=== PATIENT | female | born 1960 | race Caucasian/White ===

== ENCOUNTER → 2016-11-12 | Outpatient (CLI) | payer MEDICARE, MEDICAID ==
[~2016-11-12] MED LIST: ACET50TA PO; ACET65TA OR; AMMO12CR4 EX; ATOR1TAB18 PO; BACL-67 PO; DOXYCYCLINE PO; INVO100T PO; LEVO88TA3 PO; METF1000 PO; NIFE30TA66 PO; NORT25CA2 PO; NYAM10003 EX; OMEG100011 PO; OMEGA 3 PO; ROPI1TAB PO; SIMV20TA2 PO; SIMV40TA2 OR; TIZA4CAP3 PO; VITA1CAP7 PO; VITA50003 PO; ZONI25CA2 PO; ZONI50CA3 PO; norco PO
[2016-11-12 09:57] LABS: MEAN CORPUSCULAR HEMOGLOBIN 33.3 pg (27.0-33.0); MEAN CORPUSCULAR HGB CONC 34.9 g/dl (32.0-36.5); MEAN CORPUSCULAR VOLUME 95.4 fl (80.0-96.0); RED CELL DISTRIBUTION WIDTH 12.8 % (11.5-14.5); WHITE BLOOD COUNT 9.7 K/mm3 (4.0-10.0)
[2016-11-12 10:28] LABS: ANION GAP 6 MEQ/L (8-16); BLOOD UREA NITROGEN 14 MG/DL (7-18); CALCIUM LEVEL 9.7 MG/DL (8.5-10.1); CARBON DIOXIDE LEVEL 29 MEQ/L (21-32); CHLORIDE LEVEL 106 MEQ/L (98-107); GLOMERULAR FILTRATION RATE > 60.0 (>51); GLUCOSE, FASTING 194 MG/DL (70-105); POTASSIUM SERUM 4.4 MEQ/L (3.5-5.1); SODIUM LEVEL 141 MEQ/L (136-145)
== END ==
LOC: M LAB 09:14
PROVIDERS: ATTEND Nurse Practitioner Family
DX: E11.9 Type 2 diabetes mellitus without complications (principal); D72.829 Elevated white blood cell count, unspecified

== ENCOUNTER → 2016-11-16 | Outpatient (CLI) | payer MEDICARE, MEDICAID ==
--- NOTE | 2016-11-21 23:54 | ECWPNPC ---
PATIENT NAME: ARABELLA ROSS : 1960 GENDER: FEMALE VISIT DATE: 11/16/2016 DISCHARGE DATE: 11/16/16 1004 VISIT LOCKED DATE TIME: PHYSICIAN: FLORESITA BROWN RESOURCE: FLORESITA BROWN REASON FOR APPOINTMENT 1. POST TPI HISTORY OF PRESENT ILLNESS HISTORY OF PRESENT ILLNESS: PAIN THE PATIENT DESCRIBES THE PAIN... 56 YEAR OLD FEMALE PATIENT WITH HISTORY OF CHRONIC BACK AND ABDOMINAL PAIN. PATIENT DESCRIBES THE PAIN ACHING, SHARP, STABBING, TENDER, SORE, AND HAVING IT ALL THE TIME WITH A PAIN SCORE OF 0/10. PATIENT RECEIVED A TPI ON 10-19-2016 AND REPORTS OF DOING WELL FROM THE INJECTION AND THAT IT REALLY HELPED WITH HER BACK PAIN GREATLY. PATIENT DOES INDICATE THAT SHE STILL DOES HAVE ABDOMINAL PAIN. PATIENT DENIES UNEXPLAINABLE WEIGHT LOSS, FEVER, CHILLS, NEW CHANGES ON HER URINARY OR BOWEL CONTROL. FALL RISK SCREENING: SCREENING :NO FALLS IN THE PAST YEAR CURRENT MEDICATIONS TAKING TIZANIDINE HCL 4 MG TABLET 1 TABLET NEEDED ORALLY 3 X A DAY, NOTES: 10/18/162029 TAKING FISH OIL 1000 MG CAPSULE 1 ORALLY 4 X A DAY, NOTES: 10/18/162029 TAKING TYLENOL EXTRA STRENGTH 500 MG TABLET 2 TABLET NEEDED ORALLY EVERY 8 HRS NEEDED FOR H/A, NOTES: 10/14/16 TAKING LEVOTHROID 88 MCG TABLET 1 TABLET ON AN EMPTY STOMACH IN THE MORNING ORALLY ONCE A DAY, NOTES: 10/19/16 0630 TAKING METFORMIN HCL 1000 MG TABLET 1 TABLET WITH MEALS ORALLY TWICE A DAY, NOTES: 10/18/162029 TAKING NORTRIPTYLINE HCL 25 MG CAPSULE 1 CAPSULE ORALLY TWICE DAILY, NOTES: 10/18/162029 TAKING BACLOFEN 20 MG TABLET 1 TABLET WITH FOOD OR MILK ORALLY THREE TIMES A DAY, NOTES: 10/18/162029 TAKING ROPINIROLE HCL 1 MG TABLET 1 TABLET ORALLY THREE X DAILY, NOTES: 10/18/162029 TAKING ZONISAMIDE 50 MG CAPSULE 1 CAP ORALLY 1 AM / 2 HS, NOTES: 10/18/162029 TAKING VITAMIN D 5000 TABLET ORALLY ONCE DAILY, NOTES: 10/18/162029 TAKING VITAMIN D (ERGOCALCIFEROL) 86432 UNIT CAPSULE 1 CAPSULE ORALLY WEEKLY NOT-TAKING INVOKANA 100 MG TABLET 1 TABLET ORALLY ONCE A DAY NOT-TAKING ATORVASTATIN CALCIUM 80 MG TABLET 1 TABLET ORALLY ONCE A DAY, NOTES: 2 MONTHS AGO MEDICATION LIST REVIEWED AND RECONCILED WITH THE PATIENT PAST MEDICAL HISTORY 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 HYPERLIPIDEMIA ARTHRITIS DDD/DD FRACTURE-LEFT ANKLE X 2 GRAVES DISEASE-2011 RIGHT HIP BURSITIS MRSA LEFT GROIN 2012, I AND D TYPE II DIABETES DYSTONIA RIGHT FOOT VERTIGO FIBROMYALGIA WITH LOW BACK AND NECK PAIN MUSCLE SPASMS SEES 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 SPINAL STENOSIS UPPER ABDOMINAL PAIN ALLERGIES CRESTOR: RED BLOTCHES AFTER TAKING 1 SURGICAL HISTORY D&C 1987 LEFT GROIN ABCESS WITH CELLULITIS -I AND D/ WAS MERSA 05/24/11 RADIO-ACTIVE IODINE FOR THYROID 06/06/12 EGD- DUE TO STOMACH PAIN CT SCAN APRIL 2016 COLONOSCOPY WITH POLYPS ,REPEAT 2018 10/06/2015 FAMILY HISTORY NO FAMILY HISTORY DOCUMENTED. SOCIAL HISTORY GENERAL: TOBACCO USE ARE YOU A:NONSMOKER LEARNING BARRIERS / SPECIAL NEEDS ORIENTED TO PLAN OF CARE: PATIENT, PAIN MANAGEMENT PATIENT, ORIENTED TO PLAN OF CARE: PATIENT, PAIN MANAGEMENT PATIENT. NEW PATIENT PAIN DIARY TODAY'S VISITNOTES FROM 0-10, WHAT LEVEL IS YOUR PAIN TODAY?0 PAIN CLINIC PFS, CLERGY, PUBLIC HEALTH REFERRALS PFS REFERRAL NEEDED?NO CLERGY REFERRAL NEEDED?NO PUBLIC HEALTH REFERRAL NEEDED?NO WAS THE PROVIDER NOTIFIED OF ANY PERTINENT INFO?NO PFS REFERRAL NEEDED?NO CLERGY REFERRAL NEEDED?NO PUBLIC HEALTH REFERRAL NEEDED?NO WAS THE PROVIDER NOTIFIED OF ANY PERTINENT INFO?NO HOSPITALIZATION/MAJOR DIAGNOSTIC PROCEDURE ABCESS LEFT LEG WAS IN [facility] FOR 2 WEEKS 05/11 REVIEW OF SYSTEMS CONSTITUTIONAL: ANY CHANGE IN YOUR MEDICAL CONDITION? NO . CHILLS NO . FEVER NO . INFECTION: DO YOU HAVE NEW INFECTIONS? NO . DO YOU HAVE HISTORY OF MRSA? NO . MUSCULOSKELETAL: ANY NEW PATTERNS OF PAIN OR NUMBNESS? NO . GASTROENTEROLOGY: ANY NEW CHANGE IN BOWEL CONTROL? NO . GENITOURINARY: ANY NEW CHANGE IN BLADDER CONTROL? NO . IS THERE A CHANCE YOU COULD BE ? NO . HEMATOLOGY/LYMPH: DO YOU TAKE ANY BLOOD THINNERS? (FOR EXAMPLE- COUMADIN, PLAVIX, AGGRENOX, PLATEL, PRADAXA, OR XARELTO) NO . WHEN WAS YOUR LAST DOSE? DATE: TIME: . NEUROLOGY: HAVE YOU FALLEN IN THE PAST 6 MONTHS? NO . ANY NEW EXTREMITY NUMBNESS OR WEAKNESS? NO . CARDIOLOGY: DO YOU HAVE A PACEMAKER OR DEFIBRILLATOR? NO . RESPIRATORY: HAVE YOU BEEN SICK IN THE PAST WEEK? NO . FEVER NO . FLU LIKE SYMPTOMS? NO . COUGH NO . INTEGUMENTARY: DO YOU HAVE ANY RASHES OR OPEN SORES? NO . ALLERGIC/IMMUNO: ARE YOU ALLERGIC TO SHELLFISH OR IV DYE? NO . ANY NEW ALLERGIES? NO . PSYCHIATRIC: DO YOU HAVE THOUGHTS OF HURTING YOURSELF OR SOMEONE ELSE? NO . ARE YOU ABUSED, NEGLECTED, OR IN AN UNSAFE ENVIRONMENT? NO . ENDOCRINOLOGY: ARE YOU DIABETIC? YES . OTHER: DO YOU NEED ANY PRESCRIPTIONS? NO . IF YES, PLEASE LIST: ____ . ANY NEW PROBLEMS WITH YOUR MEDICATIONS? NO . WHEN DID YOU LAST EAT? ____ . WHEN DID YOU LAST DRINK? ____ . WHAT DID YOU LAST DRINK? ____ . NAME OF PERSON DRIVING YOU HOME? ____ . DO YOU HAVE ANY OTHER QUESTIONS OR CONCERNS NO . REVIEWED BY: PROVIDER: FLORESITA BROWN MD . VITAL SIGNS WT 127 LBS, HT 65 3/4, BMI 20.65 INDEX, BP 126/68 MM HG, HR 104 /MIN, RR 16 /MIN, TEMP 96.4 F, OXYGEN SAT % 97%, NA INITIALS SC 09:13, REVIEWED BY: AD. EXAMINATION : PATIENT IS ALERT O X 3 AND COOPERATIVE. PATIENT HAS BANDS OF TISSUE, RESTRICTION OF MOVEMENT, AND PRESENCE OF TRIGGER POINTS AT THE LOWER BACK MRI OF THE THORACIC SPINE DONE ON 02/17/16 SHOWS MILD DEGENERATIVE CHANGES. ASSESSMENTS MYALGIA - M79.1 (PRIMARY) TREATMENT MYALGIA NOTES: WE DISCUSSED SEVERAL ISSUES WITH MS. ROSS'S PAIN MANAGEMENT CASE. SINCE THE PATIENT IS STILL EXPERIENCING ABDOMINAL PAIN, PATIENT WILL START ON THE FLECTOR PATCH, TO SEE IF SHE SEES ANY ABDOMINAL PAIN RELIEF. PATIENT WILL FOLLOW UP WITH ME IN 5 TO 6 WEEKS. INSTRUCTIONS WERE GIVEN, QUESTIONS WERE ANSWERED, PATIENT REPORTS UNDERSTANDING AND AGREES WITH THE PLAN. I, OTIS LIRA, DOCUMENTED THE ABOVE INFORMATION ACTING A SCRIBE FOR DR. BROWN. I HAVE REVIEWED THE ABOVE DOCUMENT, WRITTEN BY OTIS LIRA SCRIBJosh AND I VERIFY THAT IT IS ACCURATE. OTHERS START FLECTOR PATCH, 1.3 %, 1 PATCH TO SKIN, TRANSDERMAL AT ABDOMINAL AREA, TWICE A DAY FOR PAIN, 30 DAY(S), 30, REFILLS 1 PROCEDURE CODES FA211 ESTABILISHED PATIENT [facility] FACILITY CHARGE G8730 PAIN ASSESS POS TOOL F/U PLAN DOC G8427 DOC MEDS VERIFIED W/PT OR RE FOLLOW UP 6 WEEKS ELECTRONICALLY SIGNED BY FLORESITA BROWN MD ON 11/21/2016 AT 10:48 PM EST DISCLAIMER : THIS IS A VISIT SUMMARY EXTRACTED FROM THE [employer] CHART. IT IS NOT A COPY OF THE [employer] PROGRESS NOTE. DIEGO
== END ==
LOC: M PAIN 09:20
PROVIDERS: ATTEND Anesthesiology
DX: Z09 Encounter for follow-up examination after completed treatment for conditions other than malignant neoplasm (principal); G89.29 Other chronic pain; R10.10 Upper abdominal pain, unspecified; M79.7 Fibromyalgia; M54.5 Low back pain; M54.2 Cervicalgia; M62.89 Other specified disorders of muscle; G43.909 Migraine, unspecified, not intractable, without status migrainosus; G37.9 Demyelinating disease of central nervous system, unspecified; E11.40 Type 2 diabetes mellitus with diabetic neuropathy, unspecified; G35 Multiple sclerosis; I73.00 Raynaud's syndrome without gangrene; E78.5 Hyperlipidemia, unspecified; M51.9 Unspecified thoracic, thoracolumbar and lumbosacral intervertebral disc disorder; E07.9 Disorder of thyroid, unspecified; G24.9 Dystonia, unspecified; M48.00 Spinal stenosis, site unspecified; Z88.8 Allergy status to other drugs, medicaments and biological substances; Z98.41 Cataract extraction status, right eye; Z98.42 Cataract extraction status, left eye; Z79.84 Long term (current) use of oral hypoglycemic drugs; Z86.69 Personal history of other diseases of the nervous system and sense organs; Z86.14 Personal history of Methicillin resistant Staphylococcus aureus infection

== ENCOUNTER → 2016-11-24 | Outpatient (CLI) | payer MEDICARE, MEDICAID ==
[2016-11-24 09:39] LABS: BASO # 0.1 K/mm3 (0.0-0.2); BASO % 0.6 % (0.0-1.0); EOS # 0.1 K/mm3 (0.0-0.50); EOS % 0.8 % (0.0-3.0); LYMPH # 2.6 K/mm3 (1.5-4.5); MEAN CORPUSCULAR HEMOGLOBIN 32.7 pg (27.0-33.0); MEAN CORPUSCULAR HGB CONC 35.2 g/dl (32.0-36.5); MEAN CORPUSCULAR VOLUME 92.9 fl (80.0-96.0); MONO # 0.5 K/mm3 (0.0-0.8); MONO % 4.3 % (0.0-5.0); NEUTROPHILS # 8.4 K/mm3 (1.8-7.7); NEUTROPHILS % 71.2 % (36.0-66.0); RED CELL DISTRIBUTION WIDTH 12.5 % (11.5-14.5); WHITE BLOOD COUNT 11.8 K/mm3 (4.0-10.0)
[2016-11-24 10:22] LABS: ALBUMIN 3.8 GM/DL (3.2-5.2); ALBUMIN/GLOBULIN RATIO 1.19 (1.00-1.93); ALKALINE PHOSPHATASE 86 U/L (45-117); ALT/SGPT 16 U/L (12-78); ANION GAP 9 MEQ/L (8-16); AST/SGOT 10 U/L (15-37); BILIRUBIN,TOTAL 0.4 MG/DL (0.2-1.0); BLOOD UREA NITROGEN 14 MG/DL (7-18); CALCIUM LEVEL 9.2 MG/DL (8.5-10.1); CARBON DIOXIDE LEVEL 26 MEQ/L (21-32); CHLORIDE LEVEL 105 MEQ/L (98-107); CHOLESTEROL LEVEL 322 MG/DL (<200); CREATININE FOR GFR 0.94 MG/DL (0.55-1.02); GLOMERULAR FILTRATION RATE > 60.0 (>51); GLUCOSE, FASTING 189 MG/DL (70-105); POTASSIUM SERUM 4.1 MEQ/L (3.5-5.1); SODIUM LEVEL 140 MEQ/L (136-145); TRIGLYCERIDES LEVEL 268 MG/DL (<150)
== END ==
LOC: M LAB 08:58
PROVIDERS: ATTEND Physician Assistant Medical
DX: E11.9 Type 2 diabetes mellitus without complications (principal); Z79.899 Other long term (current) drug therapy

== ENCOUNTER → 2016-12-28 | Outpatient (CLI) | payer MEDICARE, MEDICAID ==
--- NOTE | 2017-01-01 23:35 | ECWPNPC ---
PATIENT NAME: ARABELLA ROSS : 1960 GENDER: FEMALE VISIT DATE: 12/28/2016 DISCHARGE DATE: 12/28/16 0937 VISIT LOCKED DATE TIME: PHYSICIAN: FLORESITA BROWN RESOURCE: FLORESITA BROWN REASON FOR APPOINTMENT 1. BACK/STOMACH PAIN HISTORY OF PRESENT ILLNESS HISTORY OF PRESENT ILLNESS: PAIN THE PATIENT DESCRIBES THE PAIN... 56 YEAR OLD FEMALE PATIENT WITH HISTORY OF CHRONIC BACK AND ABDOMINAL PAIN. PATIENT DESCRIBES THE ACHING, SHARP, TENDER AND HAVING IT ALL THE TIME WITH A PAIN SCORE OF 4/10 ON TODAY' VISIT. PATIENT REPORTS THAT TODAY HER PAIN IS MAINLY FROM HER ABDOMINAL AND THAT THE TRIGGER POINT IS STILL WORKING FOR HER BACK. PATIENT STATES THAT ON THE LAST VISIT SHE WAS PRESCRIBED FLECTOR PATCH, BUT HER INSURANCE HAS DENIED THE MEDICATION. , PATIENT DENIES UNEXPLAINABLE WEIGHT LOSS, FEVER, CHILLS, NEW CHANGES ON HER URINARY OR BOWEL CONTROL. FALL RISK SCREENING: SCREENING :NO FALLS IN THE PAST YEAR CURRENT MEDICATIONS TAKING TIZANIDINE HCL 4 MG TABLET 1 TABLET NEEDED ORALLY 3 X A DAY, NOTES: 10/18/162029 TAKING FISH OIL 1000 MG CAPSULE 1 ORALLY 3 X A DAY, NOTES: 10/18/162029 TAKING TYLENOL EXTRA STRENGTH 500 MG TABLET 2 TABLET NEEDED ORALLY EVERY 8 HRS NEEDED FOR H/A, NOTES: 10/14/16 TAKING LEVOTHROID 88 MCG TABLET 1 TABLET ON AN EMPTY STOMACH IN THE MORNING ORALLY ONCE A DAY, NOTES: 10/19/16 0630 TAKING METFORMIN HCL 1000 MG TABLET 1 TABLET WITH MEALS ORALLY TWICE A DAY, NOTES: 10/18/162029 TAKING NORTRIPTYLINE HCL 25 MG CAPSULE 1 CAPSULE ORALLY TWICE DAILY, NOTES: 10/18/162029 TAKING BACLOFEN 20 MG TABLET 1 TABLET WITH FOOD OR MILK ORALLY THREE TIMES A DAY, NOTES: 10/18/162029 TAKING ROPINIROLE HCL 1 MG TABLET 1 TABLET ORALLY FOUR X DAILY, NOTES: 10/18/162029 TAKING ZONISAMIDE 50 MG CAPSULE 1 CAP ORALLY 1 AM / 2 HS, NOTES: 10/18/162029 TAKING VITAMIN D 5000 TABLET ORALLY ONCE DAILY, NOTES: 10/18/162029 TAKING VITAMIN D (ERGOCALCIFEROL) 37067 UNIT CAPSULE 1 CAPSULE ORALLY WEEKLY TAKING ROSUVASTATIN CALCIUM 40 MG TABLET 1 TABLET ORALLY ONCE A DAY TAKING INVOKANA 100 MG TABLET 1 TABLET ORALLY ONCE A DAY NOT-TAKING ATORVASTATIN CALCIUM 80 MG TABLET 1 TABLET ORALLY ONCE A DAY, NOTES: 2 MONTHS AGO DISCONTINUED FLECTOR 1.3 % PATCH 1 PATCH TO SKIN TRANSDERMAL AT ABDOMINAL AREA TWICE A DAY FOR PAIN MEDICATION LIST REVIEWED AND RECONCILED WITH THE PATIENT PAST MEDICAL HISTORY 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 HYPERLIPIDEMIA ARTHRITIS DDD/DD FRACTURE-LEFT ANKLE X 2 GRAVES DISEASE-2011 RIGHT HIP BURSITIS MRSA LEFT GROIN 2011, I AND D TYPE II DIABETES DYSTONIA RIGHT FOOT VERTIGO FIBROMYALGIA WITH LOW BACK AND NECK PAIN MUSCLE SPASMS SEES 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 SPINAL STENOSIS UPPER ABDOMINAL PAIN ALLERGIES N.K.D.A. SURGICAL HISTORY D&C 1987 LEFT GROIN ABCESS WITH CELLULITIS -I AND D/ WAS MERSA 05/24/11 RADIO-ACTIVE IODINE FOR THYROID 06/06/12 EGD- DUE TO STOMACH PAIN CT SCAN APRIL 2016 COLONOSCOPY WITH POLYPS ,REPEAT 2018 10/06/2015 FAMILY HISTORY NO FAMILY HISTORY DOCUMENTED. SOCIAL HISTORY GENERAL: TOBACCO USE ARE YOU A:NONSMOKER LEARNING BARRIERS / SPECIAL NEEDS ORIENTED TO PLAN OF CARE: PATIENT, PAIN MANAGEMENT PATIENT, ORIENTED TO PLAN OF CARE: PATIENT, PAIN MANAGEMENT PATIENT. NEW PATIENT PAIN DIARY TODAY'S VISITNOTES FROM 0-10, WHAT LEVEL IS YOUR PAIN TODAY?0 PAIN CLINIC PFS, CLERGY, PUBLIC HEALTH REFERRALS PFS REFERRAL NEEDED?NO CLERGY REFERRAL NEEDED?NO PUBLIC HEALTH REFERRAL NEEDED?NO WAS THE PROVIDER NOTIFIED OF ANY PERTINENT INFO?NO PFS REFERRAL NEEDED?NO CLERGY REFERRAL NEEDED?NO PUBLIC HEALTH REFERRAL NEEDED?NO WAS THE PROVIDER NOTIFIED OF ANY PERTINENT INFO?NO HOSPITALIZATION/MAJOR DIAGNOSTIC PROCEDURE ABCESS LEFT LEG WAS IN [facility] FOR 2 WEEKS 05/11 REVIEW OF SYSTEMS CONSTITUTIONAL: ANY CHANGE IN YOUR MEDICAL CONDITION? NO . CHILLS NO . FEVER NO . INFECTION: DO YOU HAVE NEW INFECTIONS? NO . DO YOU HAVE HISTORY OF MRSA? NO . MUSCULOSKELETAL: ANY NEW PATTERNS OF PAIN OR NUMBNESS? NO . GASTROENTEROLOGY: ANY NEW CHANGE IN BOWEL CONTROL? NO . GENITOURINARY: ANY NEW CHANGE IN BLADDER CONTROL? NO . IS THERE A CHANCE YOU COULD BE ? NO . HEMATOLOGY/LYMPH: DO YOU TAKE ANY BLOOD THINNERS? (FOR EXAMPLE- COUMADIN, PLAVIX, AGGRENOX, PLATEL, PRADAXA, OR XARELTO) NO . WHEN WAS YOUR LAST DOSE? DATE: TIME: . NEUROLOGY: HAVE YOU FALLEN IN THE PAST 6 MONTHS? NO . ANY NEW EXTREMITY NUMBNESS OR WEAKNESS? NO . CARDIOLOGY: DO YOU HAVE A PACEMAKER OR DEFIBRILLATOR? NO . RESPIRATORY: HAVE YOU BEEN SICK IN THE PAST WEEK? NO . FEVER NO . FLU LIKE SYMPTOMS? NO . COUGH NO . INTEGUMENTARY: DO YOU HAVE ANY RASHES OR OPEN SORES? NO . ALLERGIC/IMMUNO: ARE YOU ALLERGIC TO SHELLFISH OR IV DYE? NO . ANY NEW ALLERGIES? NO . PSYCHIATRIC: DO YOU HAVE THOUGHTS OF HURTING YOURSELF OR SOMEONE ELSE? NO . ARE YOU ABUSED, NEGLECTED, OR IN AN UNSAFE ENVIRONMENT? NO . ENDOCRINOLOGY: ARE YOU DIABETIC? YES . OTHER: DO YOU NEED ANY PRESCRIPTIONS? NO . IF YES, PLEASE LIST: ____ . ANY NEW PROBLEMS WITH YOUR MEDICATIONS? NO . WHEN DID YOU LAST EAT? ____ . WHEN DID YOU LAST DRINK? ____ . WHAT DID YOU LAST DRINK? ____ . NAME OF PERSON DRIVING YOU HOME? ____ . DO YOU HAVE ANY OTHER QUESTIONS OR CONCERNS NO . REVIEWED BY: PROVIDER: FLORESITA BROWN MD . VITAL SIGNS WT 122 LBS, HT 65 3/4, BMI 19.84 INDEX, BP 108/72 MM HG, HR 94 /MIN, RR 16 /MIN, TEMP 96.0 F, OXYGEN SAT % 97, NA INITIALS TL 0857. EXAMINATION : PATIENT IS ALERT O X 3 AND COOPERATIVE. PATIENT HAS SOME TENDERNESS IN THE LUMBAR PARASPINAL GROUP, BUT ACCORDING TO THE PATIENT ITS NOT THAT BAD. MRI OF THE THORACIC SPINE DONE ON 02/17/16 SHOWS MILD DEGENERATIVE CHANGES. ASSESSMENTS UNSPECIFIED ABDOMINAL PAIN - R10.9 (PRIMARY) TREATMENT UNSPECIFIED ABDOMINAL PAIN NOTES: WE DISCUSSED SEVERAL ISSUES WITH MS. ROSS'S PAIN MANAGEMENT CASE. PATIENT WILL START ON VOLTAREN GEL TODAY FOR THE ABDOMINAL PAIN. PATIENT TO FOLLOW UP WITH ME IN ONE MONTH. INSTRUCTIONS WERE GIVEN, QUESTIONS WERE ANSWERED, PATIENT REPORTS UNDERSTANDING AND AGREES WITH THE PLAN. I, OTIS LIRA, DOCUMENTED THE ABOVE INFORMATION ACTING A SCRIBE FOR DR. BROWN. I HAVE REVIEWED THE ABOVE DOCUMENT, WRITTEN BY OTIS VAIL AND I VERIFY THAT IT IS ACCURATE. OTHERS START VOLTAREN GEL, 1 %, DIRECTED, TRANSDERMAL, FOUR TIMES DAILY FOR PAIN, 30 DAY(S), 1, REFILLS 0 PROCEDURE CODES FA211 ESTABILISHED PATIENT [facility] CHARGE G8730 PAIN ASSESS POS TOOL F/U PLAN DOC G8427 DOC MEDS VERIFIED W/PT OR RE DISPOSITION & COMMUNICATION FOLLOW UP 4 WEEKS ELECTRONICALLY SIGNED BY FLORESITA BROWN MD ON 01/01/2017 AT 04:02 PM EST DISCLAIMER : THIS IS A VISIT SUMMARY EXTRACTED FROM THE [employer] CHART. IT IS NOT A COPY OF THE [employer] PROGRESS NOTE. MTDD
== END ==
LOC: M PAIN 09:00
PROVIDERS: ATTEND Anesthesiology
DX: Z09 Encounter for follow-up examination after completed treatment for conditions other than malignant neoplasm (principal); G89.29 Other chronic pain; R10.9 Unspecified abdominal pain; M54.5 Low back pain; M79.7 Fibromyalgia; E11.9 Type 2 diabetes mellitus without complications; G35 Multiple sclerosis; I73.00 Raynaud's syndrome without gangrene; M48.00 Spinal stenosis, site unspecified; E78.5 Hyperlipidemia, unspecified; M19.90 Unspecified osteoarthritis, unspecified site; Z79.84 Long term (current) use of oral hypoglycemic drugs; Z79.899 Other long term (current) drug therapy; Z86.14 Personal history of Methicillin resistant Staphylococcus aureus infection; Z86.69 Personal history of other diseases of the nervous system and sense organs

== ENCOUNTER → 2017-01-19 | Outpatient (CLI) | payer MEDICARE, MEDICAID ==
[2017-01-19 10:02] LABS: ALBUMIN/GLOBULIN RATIO 1.43 (1.00-1.93); ALKALINE PHOSPHATASE 79 U/L (45-117); ALT/SGPT 20 U/L (12-78); ANION GAP 8 MEQ/L (8-16); AST/SGOT 10 U/L (15-37); BILIRUBIN,TOTAL 0.2 MG/DL (0.2-1.0); BLOOD UREA NITROGEN 17 MG/DL (7-18); CALCIUM LEVEL 9.1 MG/DL (8.5-10.1); CARBON DIOXIDE LEVEL 26 MEQ/L (21-32); CHLORIDE LEVEL 107 MEQ/L (98-107); CHOLESTEROL LEVEL 149 MG/DL (<200); GLOMERULAR FILTRATION RATE > 60.0 (>51); GLUCOSE, FASTING 182 MG/DL (70-105); POTASSIUM SERUM 4.6 MEQ/L (3.5-5.1); SODIUM LEVEL 141 MEQ/L (136-145); TOTAL PROTEIN 6.8 GM/DL (6.4-8.2); TRIGLYCERIDES LEVEL 130 MG/DL (<150)
== END ==
LOC: M LAB 08:50
PROVIDERS: ATTEND Physician Assistant Medical
DX: E11.9 Type 2 diabetes mellitus without complications (principal)

== ENCOUNTER → 2017-01-26 | Outpatient (CLI) | payer MEDICARE, MEDICAID | LOC: M LAB 09:27 | PROVIDERS: ATTEND Physician Assistant Medical | DX: R63.4 Abnormal weight loss (principal) ==

== ENCOUNTER → 2017-01-26 | Outpatient (CLI) | payer MEDICARE, MEDICAID ==
--- NOTE | 2017-01-31 00:01 | ECWPNPC ---
PATIENT NAME: ARABELLA ROSS : 1960 GENDER: FEMALE VISIT DATE: 01/26/2017 DISCHARGE DATE: 01/26/17 1401 VISIT LOCKED DATE TIME: PHYSICIAN: FLORESITA BROWN RESOURCE: FLORESITA BROWN REASON FOR APPOINTMENT 1. BACK AND ABDOMINAL PAIN HISTORY OF PRESENT ILLNESS HISTORY OF PRESENT ILLNESS: PAIN THE PATIENT DESCRIBES THE PAIN... 56 YEAR OLD FEMALE PATIENT WITH HISTORY OF CHRONIC BACK AND ABDOMINAL PAIN. PATIENT DESCRIBES THE PAIN ACHING, SHARP, TENDER, SORE AND HAVING IT ALL THE TIME WITH A PAIN SCORE OF 4/10. PATIENT RECEIVED TRIGGER POINT INJECTIONS IN THE LOWER BACK ON 10/19/16 AND STATES THAT THE PAIN IS STARTING TO GET SEVERE AND WOULD LIKE TO MOVE FORWARD WITH MORE INJECTIONS. PATIENT IS CURRENTLY USING TYLENOL, NORTRIPTYLINE, AND BACLOFEN. PATIENT DID NOT RECEIVE THE VOLTAREN GEL DUE TO INSURANCE RESTRICTIONS. PATIENT DENIES UNEXPLAINABLE WEIGHT LOSS, FEVER, CHILLS, NEW CHANGES ON HER URINARY OR BOWEL CONTROL. FALL RISK SCREENING: SCREENING :NO FALLS IN THE PAST YEAR CURRENT MEDICATIONS TAKING TIZANIDINE HCL 4 MG TABLET 1 TABLET NEEDED ORALLY 3 X A DAY, NOTES: 10/18/162029 TAKING FISH OIL 1000 MG CAPSULE 1 ORALLY 3 X A DAY, NOTES: 10/18/162029 TAKING TYLENOL EXTRA STRENGTH 500 MG TABLET 2 TABLET NEEDED ORALLY EVERY 8 HRS NEEDED FOR H/A, NOTES: 10/14/16 TAKING LEVOTHROID 88 MCG TABLET 1 TABLET ON AN EMPTY STOMACH IN THE MORNING ORALLY ONCE A DAY, NOTES: 10/19/16 0630 TAKING METFORMIN HCL 1000 MG TABLET 1 TABLET WITH MEALS ORALLY TWICE A DAY, NOTES: 10/18/162029 TAKING NORTRIPTYLINE HCL 25 MG CAPSULE 1 CAPSULE ORALLY TWICE DAILY, NOTES: 10/18/162029 TAKING BACLOFEN 20 MG TABLET 1 TABLET WITH FOOD OR MILK ORALLY THREE TIMES A DAY, NOTES: 10/18/162029 TAKING ROPINIROLE HCL 1 MG TABLET 1 TABLET ORALLY FOUR X DAILY, NOTES: 10/18/162029 TAKING ZONISAMIDE 50 MG CAPSULE 1 CAP ORALLY 1 AM / 2 HS, NOTES: 10/18/162029 TAKING VITAMIN D 5000 TABLET ORALLY ONCE DAILY, NOTES: 10/18/162029 TAKING VITAMIN D (ERGOCALCIFEROL) 13548 UNIT CAPSULE 1 CAPSULE ORALLY WEEKLY TAKING ROSUVASTATIN CALCIUM 40 MG TABLET 1 TABLET ORALLY ONCE A DAY TAKING INVOKANA 100 MG TABLET 1 TABLET ORALLY ONCE A DAY TAKING POLYETHYLENE GLYCOL 3350 POWDER 17 GRAMS ORALLY DAILY DISCONTINUED VOLTAREN 1 % GEL DIRECTED TRANSDERMAL FOUR TIMES DAILY FOR PAIN DISCONTINUED ATORVASTATIN CALCIUM 80 MG TABLET 1 TABLET ORALLY ONCE A DAY, NOTES: 2 MONTHS AGO MEDICATION LIST REVIEWED AND RECONCILED WITH THE PATIENT PAST MEDICAL HISTORY 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 HYPERLIPIDEMIA ARTHRITIS DDD/DD FRACTURE-LEFT ANKLE X 2 GRAVES DISEASE-2011 RIGHT HIP BURSITIS MRSA LEFT GROIN 2011, I AND D TYPE II DIABETES DYSTONIA RIGHT FOOT VERTIGO FIBROMYALGIA WITH LOW BACK AND NECK PAIN MUSCLE SPASMS SEES 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 SPINAL STENOSIS UPPER ABDOMINAL PAIN ALLERGIES N.K.D.A. SURGICAL HISTORY D&C 1987 LEFT GROIN ABCESS WITH CELLULITIS -I AND D/ WAS MERSA 05/24/11 RADIO-ACTIVE IODINE FOR THYROID 06/06/12 EGD- DUE TO STOMACH PAIN CT SCAN APRIL 2016 COLONOSCOPY WITH POLYPS ,REPEAT 2018 10/06/2015 FAMILY HISTORY NO FAMILY HISTORY DOCUMENTED. SOCIAL HISTORY GENERAL: TOBACCO USE ARE YOU A:NONSMOKER LEARNING BARRIERS / SPECIAL NEEDS ORIENTED TO PLAN OF CARE: PATIENT, PAIN MANAGEMENT PATIENT, ORIENTED TO PLAN OF CARE: PATIENT, PAIN MANAGEMENT PATIENT. NEW PATIENT PAIN DIARY TODAY'S VISITNOTES FROM 0-10, WHAT LEVEL IS YOUR PAIN TODAY?0 PAIN CLINIC PFS, CLERGY, PUBLIC HEALTH REFERRALS PFS REFERRAL NEEDED?NO CLERGY REFERRAL NEEDED?NO PUBLIC HEALTH REFERRAL NEEDED?NO WAS THE PROVIDER NOTIFIED OF ANY PERTINENT INFO?NO PFS REFERRAL NEEDED?NO CLERGY REFERRAL NEEDED?NO PUBLIC HEALTH REFERRAL NEEDED?NO WAS THE PROVIDER NOTIFIED OF ANY PERTINENT INFO?NO HOSPITALIZATION/MAJOR DIAGNOSTIC PROCEDURE ABCESS LEFT LEG WAS IN [facility] FOR 2 WEEKS 05/11 REVIEW OF SYSTEMS CONSTITUTIONAL: ANY CHANGE IN YOUR MEDICAL CONDITION? NO . CHILLS NO . FEVER NO . INFECTION: DO YOU HAVE NEW INFECTIONS? NO . DO YOU HAVE HISTORY OF MRSA? NO . MUSCULOSKELETAL: ANY NEW PATTERNS OF PAIN OR NUMBNESS? YES, HURTS MORE LAYING DOWN. L . GASTROENTEROLOGY: ANY NEW CHANGE IN BOWEL CONTROL? YES, CONSTIPATION . GENITOURINARY: ANY NEW CHANGE IN BLADDER CONTROL? NO . IS THERE A CHANCE YOU COULD BE ? NO . HEMATOLOGY/LYMPH: DO YOU TAKE ANY BLOOD THINNERS? (FOR EXAMPLE- COUMADIN, PLAVIX, AGGRENOX, PLATEL, PRADAXA, OR XARELTO) NO . WHEN WAS YOUR LAST DOSE? DATE: TIME: . NEUROLOGY: HAVE YOU FALLEN IN THE PAST 6 MONTHS? NO . ANY NEW EXTREMITY NUMBNESS OR WEAKNESS? NO . CARDIOLOGY: DO YOU HAVE A PACEMAKER OR DEFIBRILLATOR? NO . RESPIRATORY: HAVE YOU BEEN SICK IN THE PAST WEEK? NO . FEVER NO . FLU LIKE SYMPTOMS? NO . COUGH NO . INTEGUMENTARY: DO YOU HAVE ANY RASHES OR OPEN SORES? NO . ALLERGIC/IMMUNO: ARE YOU ALLERGIC TO SHELLFISH OR IV DYE? NO . ANY NEW ALLERGIES? NO . PSYCHIATRIC: DO YOU HAVE THOUGHTS OF HURTING YOURSELF OR SOMEONE ELSE? NO . ARE YOU ABUSED, NEGLECTED, OR IN AN UNSAFE ENVIRONMENT? NO . ENDOCRINOLOGY: ARE YOU DIABETIC? YES . OTHER: DO YOU NEED ANY PRESCRIPTIONS? NO . IF YES, PLEASE LIST: ____ . ANY NEW PROBLEMS WITH YOUR MEDICATIONS? NO . WHEN DID YOU LAST EAT? ____ . WHEN DID YOU LAST DRINK? ____ . WHAT DID YOU LAST DRINK? ____ . NAME OF PERSON DRIVING YOU HOME? ____ . DO YOU HAVE ANY OTHER QUESTIONS OR CONCERNS NEVER GOT VOLTAREN GEL WOULD LIKE TO TRY SOMETHING DIFFERENT??? . REVIEWED BY: PROVIDER: FLORESITA BROWN MD . VITAL SIGNS WT 118.0 LBS, HT 65 3/4, BMI 19.19 INDEX, BP 115/73 MM HG, HR 98 /MIN, RR 16 /MIN, TEMP 98.3 F, OXYGEN SAT % 98%, NA INITIALS TL 1257, REVIEWED BY: CM. EXAMINATION : PATIENT IS ALERT O X 3 AND COOPERATIVE. PATIENT HAS SOME TENDERNESS IN THE LUMBAR PARASPINAL GROUP, BUT ACCORDING TO THE PATIENT ITS NOT THAT BAD. BANDS OF TISSUE, RESTRICTION OF MOVEMENT, AND PRESENCE OF TRIGGER POINTS IN THE THORACIC AND LUMBAR AREA. MRI OF THE THORACIC SPINE DONE ON 02/17/16 SHOWS MILD DEGENERATIVE CHANGES. ASSESSMENTS UNSPECIFIED ABDOMINAL PAIN - R10.9 (PRIMARY) MYALGIA - M79.1 TREATMENT UNSPECIFIED ABDOMINAL PAIN NOTES: WE DISCUSSED SEVERAL ISSUES WITH MRS. ROSS'S PAIN MANAGEMENT CASE. AT THIS TIME THE PATIENT WILL CONTINUE WITH THE SAME MEDICATION REGIME BEFORE. PATIENT WILL RECEIVE A PRESCRIPTION OF MARLENY DIA DUE TO INSURANCE RESTRICTIONS WITH THE VOLTAREN GEL. PATIENT EXPRESSED THAT HER LOWER BACK IS STARTING TO HAVE AN INCREASE IN PAIN. DUE TO THE SPASTICITY AND BANDS OF TISSUE I BELIEVE THE PATIENT WILL BENEFIT FROM TRIGGER POINT INJECTIONS. WE DISCUSSED THE RISKS, BENENFITS, AND ALTNERATIVES OF THE INJECTION AND THE PATIENT WOULD LIKE TO PROCEED. INSTRUCTIONS WERE GIVEN, QUESTIONS WERE ANSWERED, PATIENT REPORTS UNDERSTANDING AND AGREES WITH THE PLAN. I, ZANE STARR, DOCUMENTED THE ABOVE INFORMATION ACTING A SCRIBE FOR DR. BROWN. I HAVE REVIEWED THE ABOVE DOCUMENT, WRITTEN BY ZANE VAIL AND I VERIFY THAT IT IS ACCURATE. OTHERS START ASPERCREME W/LIDOCAINE CREAM, 4 %, DIRECTED, EXTERNALLY, EVERY 4 HOURS NEEDED FOR PAIN, 30 DAY(S), 1, REFILLS 2 PROCEDURE CODES FA211 ESTABILISHED PATIENT [facility] FACILITY CHARGE G8427 DOC MEDS VERIFIED W/PT OR RE G4930 PAIN ASSESS POS TOOL F/U PLAN DOC DISPOSITION & COMMUNICATION FOLLOW UP TPI BACK AFTER APPROVAL ELECTRONICALLY SIGNED BY FLORESITA BROWN MD ON 01/30/2017 AT 09:49 PM EDT DISCLAIMER : THIS IS A VISIT SUMMARY EXTRACTED FROM THE [employer] CHART. IT IS NOT A COPY OF THE [employer] PROGRESS NOTE. DIEGO
== END | disposition home or self-care (01) ==
LOC: M PAIN 13:00
PROVIDERS: ATTEND Anesthesiology
DX: Z09 Encounter for follow-up examination after completed treatment for conditions other than malignant neoplasm (principal); G89.29 Other chronic pain; R63.4 Abnormal weight loss; R10.9 Unspecified abdominal pain; M79.1 Myalgia; E11.40 Type 2 diabetes mellitus with diabetic neuropathy, unspecified; G35 Multiple sclerosis; I73.00 Raynaud's syndrome without gangrene; G37.9 Demyelinating disease of central nervous system, unspecified; G43.909 Migraine, unspecified, not intractable, without status migrainosus; M19.90 Unspecified osteoarthritis, unspecified site; M48.00 Spinal stenosis, site unspecified; M51.9 Unspecified thoracic, thoracolumbar and lumbosacral intervertebral disc disorder; Z86.14 Personal history of Methicillin resistant Staphylococcus aureus infection; Z87.828 Personal history of other (healed) physical injury and trauma; Z79.899 Other long term (current) drug therapy; Z79.84 Long term (current) use of oral hypoglycemic drugs
CPT/HCPCS: 36415; 84443; G0463

== ENCOUNTER → 2017-02-03 | Outpatient (CLI) | payer MEDICARE, MEDICAID ==
[~2017-02-03] MED LIST changes: +GASTROGRAFIN SOLUTION 30ML (Q9963) As Ordered ONE; +ISOVUE-370 76% 100ML VIAL (Q9967) As Ordered ONE
--- NOTE | 2017-02-03 15:26 | REP ---
CT of the chest with IV contrast: There are no comparison chest CT studies. There is a comparison plain film study dated 11/11/2015. Studies performed for abnormal weight loss. There are no masses or nodules. There are no infiltrates or effusions. The lung rios are essentially clear. There is no mediastinal, hilar or axillary lymphadenopathy. The thoracic aorta is unremarkable. Cardiac size is normal. There is no pericardial effusion. Please refer to the CT of the abdomen and pelvis for findings in the upper abdomen. Impression: Essentially negative CT study of the chest. Signed by Guido Elise MD 02/03/2017 03:18 P
--- NOTE | 2017-02-03 15:43 | REP ---
CT abdomen and pelvis with IV and oral contrast: Comparisons are 10/01/2016 and 02/26/2016. On the comparison study. There is a tiny pleural-based linear density anteriorly in the right middle lobe. Upon review of the chest CT today this density is again identified and is unchanged measuring 4 x 1.4 mm and is likely a parenchymal scar. The hepatic parenchyma is homogeneous. The gallbladder, pancreas and spleen are normal size and unremarkable. There is wall thickening of the gastric antrum measuring up to 6 mm. This is nonspecific and could be secondary to incomplete distension or could represent inflammation or neoplasm. Depending on symptomatology gastroscopy might be considered. Upon review of the 10/01/2016 study the gastric antrum was not thickened on the images without IV contrast, and the antrum was adequately distended with air. However, the antrum appeared thickened on the images with IV contrast where the antrum was not as well distended. The adrenals and kidneys are unremarkable. The abdominal aorta is unremarkable. There is no retroperitoneal adenopathy. The small bowel is moderately distended diffusely and there is wall thickening throughout the small bowel. The findings are compatible with enteritis. There is no ascites. There is no colonic distension or wall thickening. Pelvis: The appendix cannot be identified, however there is no pericecal inflammation or abscess. The uterus and adnexa are unremarkable. There is no pelvic free fluid. No pelvic adenopathy. No lytic, blastic or destructive skeletal changes are identified. Impression: Diffuse moderate distension of the small bowel and wall thickening. Findings are compatible with enteritis. There is wall thickening of the gastric antrum, non specific as discussed in the body of the report, artifact from incomplete distension versus antral wall inflammation or neoplasm. Depending on symptomatology another clinical findings consider gastroscopy . Signed by Guido Elise MD 02/03/2017 03:35 P
== END ==
LOC: M RAD 12:45
PROVIDERS: ATTEND Physician Assistant Medical
DX: K52.9 Noninfective gastroenteritis and colitis, unspecified (principal)
CPT/HCPCS: 71260; 74177; Q9963; Q9967

== ENCOUNTER → 2017-02-09 | Outpatient (CLI) | payer MEDICARE, MEDICAID ==
[~2017-02-09] MED LIST changes: +BUPIVACAINE HCL 0.25% 10 ML VIAL As Ordered ONE; +BUPIVACAINE HCL 0.25% 30 ML VIAL As Ordered ONE; -GASTROGRAFIN SOLUTION 30ML (Q9963) As Ordered ONE; -ISOVUE-370 76% 100ML VIAL (Q9967) As Ordered ONE
--- NOTE | 2017-02-20 23:56 | ECWPNPC ---
PATIENT NAME: ARABELLA ROSS : 1960 GENDER: FEMALE VISIT DATE: 02/09/2017 DISCHARGE DATE: 02/09/17939 VISIT LOCKED DATE TIME: PHYSICIAN: FLORESITA BROWN RESOURCE: FLORESITA BROWN REASON FOR APPOINTMENT 1. TPI LOW BACK HISTORY OF PRESENT ILLNESS HISTORY OF PRESENT ILLNESS: PAIN THE PATIENT DESCRIBES THE PAIN... FALL RISK SCREENING: SCREENING :NO FALLS IN THE PAST YEAR CURRENT MEDICATIONS TAKING TIZANIDINE HCL 4 MG TABLET 1 TABLET NEEDED ORALLY 3 X A DAY, NOTES: 02/08/17 1400 TAKING FISH OIL 1000 MG CAPSULE 1 ORALLY 3 X A DAY, NOTES: 02/12/17 TAKING TYLENOL EXTRA STRENGTH 500 MG TABLET 2 TABLET NEEDED ORALLY EVERY 8 HRS NEEDED FOR H/A, NOTES: 02/08/17 190 TAKING LEVOTHROID 88 MCG TABLET 1 TABLET ON AN EMPTY STOMACH IN THE MORNING ORALLY ONCE A DAY, NOTES: 02/09/17 0211 TAKING METFORMIN HCL 1000 MG TABLET 1 TABLET WITH MEALS ORALLY TWICE A DAY, NOTES: 02/08/17 190 TAKING NORTRIPTYLINE HCL 25 MG CAPSULE 1 CAPSULE ORALLY TWICE DAILY, NOTES: 02/08/17 08 TAKING BACLOFEN 20 MG TABLET 1 TABLET WITH FOOD OR MILK ORALLY THREE TIMES A DAY, NOTES: 02/08/17 08 TAKING ROPINIROLE HCL 1 MG TABLET 1 TABLET ORALLY FOUR X DAILY, NOTES: 02/08/17 1430 TAKING ZONISAMIDE 50 MG CAPSULE 1 CAP ORALLY 1 AM / 2 HS, NOTES: 02/08/17 08 TAKING VITAMIN D 5000 TABLET ORALLY ONCE DAILY, NOTES: 02/06/17 TAKING VITAMIN D (ERGOCALCIFEROL) 29243 UNIT CAPSULE 1 CAPSULE ORALLY WEEKLY, NOTES: 02/06/17 TAKING ROSUVASTATIN CALCIUM 40 MG TABLET 1 TABLET ORALLY ONCE A DAY, NOTES: 02/08/17 1930 TAKING INVOKANA 300 MG TABLET 1 TABLET ORALLY ONCE A DAY, NOTES: 02/08/17 0800 TAKING POLYETHYLENE GLYCOL 3350 POWDER 17 GRAMS ORALLY DAILY, NOTES: 02/07/17 TAKING ASPERCREME W/LIDOCAINE 4 % CREAM DIRECTED EXTERNALLY EVERY 4 HOURS NEEDED FOR PAIN, NOTES: NONE LATELY MEDICATION LIST REVIEWED AND RECONCILED WITH THE PATIENT PAST MEDICAL HISTORY 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 HYPERLIPIDEMIA ARTHRITIS DDD/DD FRACTURE-LEFT ANKLE X 2 GRAVES DISEASE-2012 RIGHT HIP BURSITIS MRSA LEFT GROIN 2012, I AND D TYPE II DIABETES DYSTONIA RIGHT FOOT VERTIGO FIBROMYALGIA WITH LOW BACK AND NECK PAIN MUSCLE SPASMS SEES 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 SPINAL STENOSIS UPPER ABDOMINAL PAIN ALLERGIES N.K.D.A. SOCIAL HISTORY GENERAL: PAIN CLINIC PFS, CLERGY, PUBLIC HEALTH REFERRALS CLERGY REFERRAL NEEDED?NO WAS THE PROVIDER NOTIFIED OF ANY PERTINENT INFO?NO PFS REFERRAL NEEDED?NO PUBLIC HEALTH REFERRAL NEEDED?NO PATIENT: ____. REVIEW OF SYSTEMS CONSTITUTIONAL: ANY CHANGE IN YOUR MEDICAL CONDITION? NO . CHILLS NO . FEVER NO . INFECTION: DO YOU HAVE NEW INFECTIONS? NO . DO YOU HAVE HISTORY OF MRSA? NO . MUSCULOSKELETAL: ANY NEW PATTERNS OF PAIN OR NUMBNESS? NO . GASTROENTEROLOGY: ANY NEW CHANGE IN BOWEL CONTROL? NO . GENITOURINARY: ANY NEW CHANGE IN BLADDER CONTROL? NO . IS THERE A CHANCE YOU COULD BE ? NO . HEMATOLOGY/LYMPH: DO YOU TAKE ANY BLOOD THINNERS? (FOR EXAMPLE- COUMADIN, PLAVIX, AGGRENOX, PLATEL, PRADAXA, OR XARELTO) NO . WHEN WAS YOUR LAST DOSE? DATE: TIME: . NEUROLOGY: HAVE YOU FALLEN IN THE PAST 6 MONTHS? NO . ANY NEW EXTREMITY NUMBNESS OR WEAKNESS? NO . CARDIOLOGY: DO YOU HAVE A PACEMAKER OR DEFIBRILLATOR? NO . RESPIRATORY: HAVE YOU BEEN SICK IN THE PAST WEEK? NO . FEVER NO . FLU LIKE SYMPTOMS? NO . COUGH NO . INTEGUMENTARY: DO YOU HAVE ANY RASHES OR OPEN SORES? NO . ALLERGIC/IMMUNO: ARE YOU ALLERGIC TO SHELLFISH OR IV DYE? NO . ANY NEW ALLERGIES? NO . PSYCHIATRIC: DO YOU HAVE THOUGHTS OF HURTING YOURSELF OR SOMEONE ELSE? NO . ARE YOU ABUSED, NEGLECTED, OR IN AN UNSAFE ENVIRONMENT? NO . ENDOCRINOLOGY: ARE YOU DIABETIC? YES . OTHER: DO YOU NEED ANY PRESCRIPTIONS? NO . IF YES, PLEASE LIST: ____ . ANY NEW PROBLEMS WITH YOUR MEDICATIONS? NO . WHEN DID YOU LAST EAT? ____02/09 2000 . WHEN DID YOU LAST DRINK? ____02/09/17 0545 . WHAT DID YOU LAST DRINK? ____WATER . NAME OF PERSON DRIVING YOU HOME? ____BILLIE KOENIG . DO YOU HAVE ANY OTHER QUESTIONS OR CONCERNS NO . REVIEWED BY: PROVIDER: . VITAL SIGNS WT 119 LBS, HT 65 3/4, BMI 19.35 INDEX, BP 107/60 MM HG, HR 92 /MIN, RR 16 /MIN, TEMP 98.1 F, OXYGEN SAT % 97%, NA INITIALS SC 08:47. ASSESSMENTS MYALGIA - M79.1 (PRIMARY) PROCEDURES PN TRIGGER POINT INJECTION NO STEROIDS PRE PROCEDURE DIAGNOSIS 1. MYALGIA 2. PAIN AT BILATERAL LOWER BACK AREA POST PROCEDURE DIAGNOSIS 1. MYALGIA 2. PAIN AT BILATERAL LOWER BACK AREA PROCEDURE TRIGGER POINT INJECTION AT BILATERAL LOWER BACK AREA SURGEON DR. FLORESITA BROWN INSURANCE ACCOUNT MANAGER NONE ANESTHESIA LOCAL PRE PROCEDURE NOTE 56 YEAR-OLD PATIENT WITH HISTORY OF CHRONIC PAIN AT RIGHT AND LEFT LOWER BACK. I EVALUATED THE PATIENT AND REVIEWED THE CHART. THERE IS EVIDENCE OF BANDS OF TISSUE WITH RESTRICTION OF MOVEMENT AND PRESENCE OF TRIGGER POINT AT THE AFFECTED AREA. I WENT OVER THE RISKS, ALTERNATIVES, AND BENEFITS ASSOCIATED WITH THIS PROCEDURE. THE PATIENT WOULD LIKE TO PROCEED AND GAVE CONSENT TO PERFORM THE PROCEDURE. THE PATIENT DENIES UNEXPLAINABLE WEIGHT LOSS, FEVER, CHILLS, OR NEW CHANGES IN URINARY OR BOWEL CONTROL DESCRIPTION OF PROCEDURE THE PATIENT WAS BROUGHT TO THE PROCEDURE ROOM AND PLACED IN THE SITTING PRONE POSITION. THE AREA WAS CLEANED WITH ALCOHOL. THE PROCEDURE WAS DONE USING ASEPTIC STERILE TECHNIQUES. I CHECKED LATERALITY AND THE LEVEL WHERE THE PROCEDURE WAS GOING TO BE PERFORMED WITH THE PATIENT AND THE SUPPORTING STAFF AT THE MOMENT OF THE TIME OUT IN THE PROCEDURE ROOM. USING A 25-GAUGE NEEDLE, TRIGGER POINTS WERE INJECTED WITH A TOTAL OF 40 ML OF BUPIVACAINE 0.25%. AGREED WITH THE PATIENT AT THE RIGHT AND LEFT LOWER BACK THE PROCEDURE WAS DONE WITHOUT STEROIDS. THERE WAS NO EVIDENCE OF BLOOD, PARESTHESIA OR CEREBROSPINAL FLUID DURING THE PROCEDURE. THE PATIENT WAS SENT TO THE RECOVERY ROOM. THE PATIENT WAS MOVING THE EXTREMITIES AND DOING WELL. THERE WAS NO COMPLICATION DURING THE PROCEDURE. POST PROCEDURE NOTE THE PATIENT WILL BE SEEN IN A FOLLOW UP IN THE NEXT FEW WEEKS. INSTRUCTIONS WERE GIVEN, QUESTIONS WERE ANSWERED, AND THE PATIENT EXPRESSED UNDERSTANDING AND AGREED WITH THE PLAN. INSTRUCTIONS WERE GIVEN, QUESTIONS WERE ANSWERED, PATIENT REPORTS UNDERSTANDING AND AGREES WITH THE PLAN. I, ZANE STARR, DOCUMENTED THE ABOVE INFORMATION ACTING A SCRIBE FOR DR. BROWN. I HAVE REVIEWED THE ABOVE DOCUMENT, WRITTEN BY ZANE SHAMPINE SCRIBE AND I VERIFY THAT IT IS ACCURATE PROCEDURE CODES 61317 INJ TRIGGER POINT / MUSCL DISPOSITION & COMMUNICATION FOLLOW UP 3 WEEKS ELECTRONICALLY SIGNED BY FLORESITA BROWN MD ON 02/20/2017 AT 04:48 PM EDT DISCLAIMER : THIS IS A VISIT SUMMARY EXTRACTED FROM THE [employer] CHART. IT IS NOT A COPY OF THE [employer] PROGRESS NOTE. DIEGO
== END | disposition home or self-care (01) ==
LOC: M PAIN 08:40
PROVIDERS: ATTEND Anesthesiology
DX: G89.29 Other chronic pain (principal); M79.1 Myalgia; E11.40 Type 2 diabetes mellitus with diabetic neuropathy, unspecified; E78.5 Hyperlipidemia, unspecified; M19.90 Unspecified osteoarthritis, unspecified site; G35 Multiple sclerosis; I73.00 Raynaud's syndrome without gangrene; M48.00 Spinal stenosis, site unspecified; E05.00 Thyrotoxicosis with diffuse goiter without thyrotoxic crisis or storm; Z79.899 Other long term (current) drug therapy; Z79.84 Long term (current) use of oral hypoglycemic drugs

== ENCOUNTER → 2017-02-28 | Outpatient (CLI) | payer MEDICARE, MEDICAID ==
[~2017-02-28] MED LIST changes: -BUPIVACAINE HCL 0.25% 10 ML VIAL As Ordered ONE; -BUPIVACAINE HCL 0.25% 30 ML VIAL As Ordered ONE; +CRES40TA PO; +INVO300T PO; +TYLE500T78 PO
--- NOTE | 2017-03-08 02:01 | ECWPNPC ---
PATIENT NAME: ARABELLA ROSS : 1960 GENDER: FEMALE VISIT DATE: 02/28/2017 DISCHARGE DATE: 02/28/17 1639 VISIT LOCKED DATE TIME: PHYSICIAN: FLORESITA BROWN RESOURCE: FLORESITA BROWN REASON FOR APPOINTMENT 1. LOW BACK PAIN HISTORY OF PRESENT ILLNESS HISTORY OF PRESENT ILLNESS: PAIN THE PATIENT DESCRIBES THE PAIN... 56 YEAR OLD FEMALE PATIENT WITH HISTORY OF CHRONIC LOW BACK PAIN. PATIENT RECEIVED TRIGGER POINT INJECTIONS ON 02/09/17 AND STATES THAT SHE HAS NO PAIN THIS TIME. PATIENT USES TIZANIDINE AND NORTRIPTYLINE NEEDED IF THE PAIN INCREASES. MRS. ROSS REPORTS HAVING TWINGES OF PAIN BUT STATES THAT THE PAIN IS VERY MANAGEABLE. PATIENT DENIES UNEXPLAINABLE WEIGHT LOSS, FEVER, CHILLS, NEW CHANGES ON HER URINARY OR BOWEL CONTROL. FALL RISK SCREENING: SCREENING :NO FALLS IN THE PAST YEAR CURRENT MEDICATIONS TAKING TIZANIDINE HCL 4 MG TABLET 1 TABLET NEEDED ORALLY 3 X A DAY TAKING FISH OIL 1000 MG CAPSULE 1 ORALLY 3 X A DAY TAKING TYLENOL EXTRA STRENGTH 500 MG TABLET 2 TABLET NEEDED ORALLY EVERY 8 HRS NEEDED FOR H/A TAKING LEVOTHROID 88 MCG TABLET 1 TABLET ON AN EMPTY STOMACH IN THE MORNING ORALLY ONCE A DAY TAKING METFORMIN HCL 1000 MG TABLET 1 TABLET WITH MEALS ORALLY TWICE A DAY TAKING NORTRIPTYLINE HCL 25 MG CAPSULE 1 CAPSULE ORALLY TWICE DAILY TAKING BACLOFEN 20 MG TABLET 1 TABLET WITH FOOD OR MILK ORALLY THREE TIMES A DAY TAKING ROPINIROLE HCL 1 MG TABLET 1 TABLET ORALLY FOUR X DAILY TAKING ZONISAMIDE 50 MG CAPSULE 1 CAP ORALLY 1 AM / 2 HS TAKING VITAMIN D 5000 TABLET ORALLY ONCE DAILY TAKING VITAMIN D (ERGOCALCIFEROL) 55043 UNIT CAPSULE 1 CAPSULE ORALLY WEEKLY TAKING ROSUVASTATIN CALCIUM 40 MG TABLET 1 TABLET ORALLY ONCE A DAY TAKING INVOKANA 300 MG TABLET 1 TABLET ORALLY ONCE A DAY TAKING POLYETHYLENE GLYCOL 3350 POWDER 17 GRAMS ORALLY DAILY NOT-TAKING ASPERCREME W/LIDOCAINE 4 % CREAM DIRECTED EXTERNALLY EVERY 4 HOURS NEEDED FOR PAIN MEDICATION LIST REVIEWED AND RECONCILED WITH THE PATIENT PAST MEDICAL HISTORY 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 SURGICAL HISTORY D&C 1987 LEFT GROIN ABCESS WITH CELLULITIS -I AND D/ WAS MERSA 05/24/11 RADIO-ACTIVE IODINE FOR THYROID 06/06/12 EGD- DUE TO STOMACH PAIN CT SCAN APRIL 2016 COLONOSCOPY WITH POLYPS ,REPEAT 2018 10/06/2015 FAMILY HISTORY NO FAMILY HISTORY DOCUMENTED. SOCIAL HISTORY GENERAL: PAIN CLINIC PFS, CLERGY, PUBLIC HEALTH REFERRALS CLERGY REFERRAL NEEDED?NO WAS THE PROVIDER NOTIFIED OF ANY PERTINENT INFO?NO PFS REFERRAL NEEDED?NO PUBLIC HEALTH REFERRAL NEEDED?NO PATIENT: ____. HOSPITALIZATION/MAJOR DIAGNOSTIC PROCEDURE ABCESS LEFT LEG WAS IN [facility] FOR 2 WEEKS 05/11 REVIEW OF SYSTEMS CONSTITUTIONAL: ANY CHANGE IN YOUR MEDICAL CONDITION? NO . CHILLS NO . FEVER NO . INFECTION: DO YOU HAVE NEW INFECTIONS? NO . DO YOU HAVE HISTORY OF MRSA? NO . MUSCULOSKELETAL: ANY NEW PATTERNS OF PAIN OR NUMBNESS? NO . GASTROENTEROLOGY: ANY NEW CHANGE IN BOWEL CONTROL? NO . GENITOURINARY: ANY NEW CHANGE IN BLADDER CONTROL? NO . IS THERE A CHANCE YOU COULD BE ? NO . HEMATOLOGY/LYMPH: DO YOU TAKE ANY BLOOD THINNERS? (FOR EXAMPLE- COUMADIN, PLAVIX, AGGRENOX, PLATEL, PRADAXA, OR XARELTO) NO . WHEN WAS YOUR LAST DOSE? DATE: TIME: . NEUROLOGY: HAVE YOU FALLEN IN THE PAST 6 MONTHS? NO . ANY NEW EXTREMITY NUMBNESS OR WEAKNESS? NO . CARDIOLOGY: DO YOU HAVE A PACEMAKER OR DEFIBRILLATOR? NO . RESPIRATORY: HAVE YOU BEEN SICK IN THE PAST WEEK? NO . FEVER NO . FLU LIKE SYMPTOMS? NO . COUGH NO . INTEGUMENTARY: DO YOU HAVE ANY RASHES OR OPEN SORES? NO . ALLERGIC/IMMUNO: ARE YOU ALLERGIC TO SHELLFISH OR IV DYE? NO . ANY NEW ALLERGIES? NO . PSYCHIATRIC: DO YOU HAVE THOUGHTS OF HURTING YOURSELF OR SOMEONE ELSE? NO . ARE YOU ABUSED, NEGLECTED, OR IN AN UNSAFE ENVIRONMENT? NO . ENDOCRINOLOGY: ARE YOU DIABETIC? NO . OTHER: DO YOU NEED ANY PRESCRIPTIONS? NO . IF YES, PLEASE LIST: ____ . ANY NEW PROBLEMS WITH YOUR MEDICATIONS? NO . WHEN DID YOU LAST EAT? ____ . WHEN DID YOU LAST DRINK? ____ . WHAT DID YOU LAST DRINK? ____ . NAME OF PERSON DRIVING YOU HOME? ____ . DO YOU HAVE ANY OTHER QUESTIONS OR CONCERNS NO . REVIEWED BY: PROVIDER: FLORESITA BROWN MD . VITAL SIGNS WT 120.6 LBS, HT 65 3/4, BMI 19.61 INDEX, BP 101/63 MM HG, HR 98 /MIN, RR 16 /MIN, TEMP 98.1 F, OXYGEN SAT % 93%, NA INITIALS AW 1517, REVIEWED BY: NL. EXAMINATION : PATIENT IS ALERT O X 3 AND COOPERATIVE. PATIENT HAS SOME TENDERNESS IN THE LUMBAR PARASPINAL GROUP, BUT ACCORDING TO THE PATIENT ITS NOT THAT BAD. BANDS OF TISSUE, RESTRICTION OF MOVEMENT, AND PRESENCE OF TRIGGER POINTS IN THE THORACIC AND LUMBAR AREA. MRI OF THE THORACIC SPINE DONE ON 02/17/16 SHOWS MILD DEGENERATIVE CHANGES. ASSESSMENTS MYALGIA - M79.1 (PRIMARY) UNSPECIFIED ABDOMINAL PAIN - R10.9 TREATMENT MYALGIA NOTES: WE DISCUSSED SEVERAL ISSUES WITH MRS. ROSS'S PAIN MANAGEMENT CASE. PATIENT WILL CONTINUE WITH THE SAME MEDICATION REGIME BEFORE. PATIENT STATES THAT AT THIS TIME SHE HAS LITTLE TO NO PAIN SO NO INTERVENTIONS WILL BE HELD. PATIENT WILL RETURN TO THE CLINIC IN 6 WEEKS BUT WAS ADVISED TO CALL IF THE PAIN WORSENS AT ANY TIME. INSTRUCTIONS WERE GIVEN, QUESTIONS WERE ANSWERED, PATIENT REPORTS UNDERSTANDING AND AGREES WITH THE PLAN. I, ZANE STARR, DOCUMENTED THE ABOVE INFORMATION ACTING A SCRIBE FOR DR. BROWN. I HAVE REVIEWED THE ABOVE DOCUMENT, WRITTEN BY ZANE VAIL AND I VERIFY THAT IT IS ACCURATE. PROCEDURE CODES FA211 ESTABILISHED PATIENT [facility] FACILITY CHARGE G8427 DOC MEDS VERIFIED W/PT OR RE G8730 PAIN ASSESS POS TOOL F/U PLAN DOC DISPOSITION & COMMUNICATION FOLLOW UP 6 WEEKS ELECTRONICALLY SIGNED BY FLORESITA BROWN MD ON 03/07/2017 AT 08:22 PM EDT DISCLAIMER : THIS IS A VISIT SUMMARY EXTRACTED FROM THE [employer] CHART. IT IS NOT A COPY OF THE [employer] PROGRESS NOTE. DIEGO
== END | disposition home or self-care (01) ==
LOC: M PAIN 15:20
PROVIDERS: ATTEND Anesthesiology
DX: G89.29 Other chronic pain (principal); M79.1 Myalgia; R10.9 Unspecified abdominal pain; E11.40 Type 2 diabetes mellitus with diabetic neuropathy, unspecified; G35 Multiple sclerosis; E78.5 Hyperlipidemia, unspecified; G43.909 Migraine, unspecified, not intractable, without status migrainosus; M19.90 Unspecified osteoarthritis, unspecified site; M51.9 Unspecified thoracic, thoracolumbar and lumbosacral intervertebral disc disorder; I73.00 Raynaud's syndrome without gangrene; M48.00 Spinal stenosis, site unspecified; E05.00 Thyrotoxicosis with diffuse goiter without thyrotoxic crisis or storm; Z79.899 Other long term (current) drug therapy; Z79.84 Long term (current) use of oral hypoglycemic drugs

== ENCOUNTER → 2017-03-03 | Outpatient (CLI) | payer MEDICARE, MEDICAID ==
[~2017-03-03] MED LIST changes: +E-Z-PAQUE 96% w/w SUSP 176GM BTL As Ordered ONE
--- NOTE | 2017-03-03 19:03 | REP ---
SMALL BOWEL FOLLOW-THROUGH: The procedure was performed under the direct supervision of Dr. Molina. The images were reviewed with Dr. Molina. The deposition reporter film shows no organomegaly or pathological masses. The intestinal gas pattern is nonspecific. Liquid barium was administered and the barium column was followed through the small bowel to the level of the terminal ileum. Small bowel transit time was approximately 1 hour and 30 minutes. During fluoroscopy gentle palpation shows all loops are freely movable and pliable. There are no fixed or angulated loops. The small bowel mucosal pattern is normal in course and caliber. There is no transition to suggest a partial small bowel obstruction. Spot filming of terminal ileum shows it to be unremarkable. IMPRESSION: Small bowel follow-through examination within normal limits. 56 seconds of fluoroscopy time was utilized for this procedure. Reviewed by KRISTA Berry 03/04/2017 08:33 AEdited and Signed by Guido Molina MD 03/04/2017 05:08 P
== END ==
LOC: M RAD 07:56
PROVIDERS: ATTEND Physician Assistant Medical
DX: R10.33 Periumbilical pain (principal); R63.4 Abnormal weight loss

== ENCOUNTER → 2017-03-10 | Outpatient (CLI) | payer MEDICARE, MEDICAID ==
[~2017-03-10] MED LIST changes: -E-Z-PAQUE 96% w/w SUSP 176GM BTL As Ordered ONE
[2017-03-10 10:27] LABS: BASO % 0.4 % (0.0-1.0); EOS % 0.3 % (0.0-3.0); LYMPH # 3.3 K/mm3 (1.5-4.5); LYMPH % 28.5 % (24.0-44.0); MEAN CORPUSCULAR HEMOGLOBIN 32.5 pg (27.0-33.0); MEAN CORPUSCULAR HGB CONC 33.6 g/dl (32.0-36.5); MEAN CORPUSCULAR VOLUME 96.6 fl (80.0-96.0); MONO # 0.6 K/mm3 (0.0-0.8); MONO % 4.9 % (0.0-5.0); NEUTROPHILS # 7.5 K/mm3 (1.8-7.7); NEUTROPHILS % 64.3 % (36.0-66.0); RED CELL DISTRIBUTION WIDTH 12.3 % (11.5-14.5); WHITE BLOOD COUNT 11.7 K/mm3 (4.0-10.0)
[2017-03-10 10:55] LABS: ALBUMIN 3.9 GM/DL (3.2-5.2); ALBUMIN/GLOBULIN RATIO 1.15 (1.00-1.93); ALKALINE PHOSPHATASE 106 U/L (45-117); ALT/SGPT 25 U/L (12-78); ANION GAP 12 MEQ/L (8-16); AST/SGOT 11 U/L (15-37); BILIRUBIN,TOTAL 0.4 MG/DL (0.2-1.0); BLOOD UREA NITROGEN 22 MG/DL (7-18); CALCIUM LEVEL 9.3 MG/DL (8.5-10.1); CARBON DIOXIDE LEVEL 24 MEQ/L (21-32); CHLORIDE LEVEL 101 MEQ/L (98-107); CREATININE FOR GFR 0.98 MG/DL (0.55-1.02); GLOMERULAR FILTRATION RATE > 60.0 (>51); GLUCOSE, FASTING 269 MG/DL (70-105); POTASSIUM SERUM 4.6 MEQ/L (3.5-5.1); SODIUM LEVEL 137 MEQ/L (136-145); TOTAL PROTEIN 7.3 GM/DL (6.4-8.2)
[2017-03-10 10:58] LABS: FOLATE 14.3 NG/ML; VITAMIN B12 LEVEL 560 PG/ML
== END ==
LOC: M LAB 09:26
PROVIDERS: ATTEND Physician Assistant Medical
DX: R63.4 Abnormal weight loss (principal)

== ENCOUNTER → 2017-03-15 | Outpatient (CLI) | payer MEDICARE, MEDICAID ==
[~2017-03-15] VITALS: Ht 167.6 cm; Wt 52.6 kg
[~2017-03-15] MED LIST changes: +LIDOCAINE 2% INJ 100 MG/5 ML SDV (FOR ANES.) As Ordered ONE; +NS 1,000 ML IV ONE; +PROPOFOL 200 MG/20 ML VIAL As Ordered ONE; +ePHEDrine SULFATE 25 MG/5 ML(5MG/ML) SYRINGE As Ordered ONE
--- NOTE | 2017-03-15 11:50 | ROOR ---
Patient Name: Sima Otero Procedure Date: 03/15/2017 11:36 AM Date of : 1960 Age: 56 Room: [facility] Gender: Female Note Status: Finalized Procedure: Upper GI endoscopy Indications: Abdominal pain Providers: Victor Hugo JOHNSON MD Referring MD: 1. No Referring Physician 1. No Referring Physician, Admin. Requesting Provider: Medicines: Monitored Anesthesia Care Complications: No immediate complications. Procedure: Pre-Anesthesia Assessment: - The heart rate, respiratory rate, oxygen saturations, blood pressure, adequacy of pulmonary ventilation, and response to care were monitored throughout the procedure. The Endoscope was introduced through the mouth, and advanced to the third part of duodenum. The upper GI endoscopy was accomplished without difficulty. The patient tolerated the procedure well. Findings: The esophagus was normal. The stomach was normal. The examined duodenum was normal. Impression: - Normal esophagus. - Normal stomach. - Normal examined duodenum. - No specimens collected. Recommendation: - Observe patient's clinical course. Victor Hugo Johnson MD Victor Hugo JOHNSON MD 03/15/2017 11:49:36 AM This report has been signed electronically. Number of Addenda: 0 Note Initiated On: 03/15/2017 11:36 AM Estimated Blood Loss: Estimated blood loss: none.
--- NOTE | 2017-03-15 12:08 | ROOR ---
Patient Name: Sima Otero Procedure Date: 03/15/2017 11:39 AM Date of : 1960 Age: 56 Room: [facility] Gender: Female Note Status: Finalized Procedure: Colonoscopy Indications: Abdominal pain Providers: Victor Hugo JOHNSON MD Referring MD: 1. No Referring Physician 1. No Referring Physician, Admin. Requesting Provider: Medicines: Monitored Anesthesia Care Complications: No immediate complications. Procedure: Pre-Anesthesia Assessment: - The heart rate, respiratory rate, oxygen saturations, blood pressure, adequacy of pulmonary ventilation, and response to care were monitored throughout the procedure. The Colonoscope was introduced through the anus and advanced to 3 cm into the ileum. The colonoscopy was performed without difficulty. The patient tolerated the procedure well. The quality of the bowel preparation was adequate. Findings: The perianal and digital rectal examinations were normal. A few small-mouthed diverticula were found in the sigmoid colon. Internal hemorrhoids were found during retroflexion. The hemorrhoids were moderate. The entire examined colon appeared normal on direct and retroflexion views. Impression: - Mild diverticulosis in the sigmoid colon. - Internal hemorrhoids. - The entire colon is otherwise normal on direct and retroflexion views. - No specimens collected. Recommendation: - Use fiber, for example Citrucel, Fibercon, Konsyl or Metamucil. Victor Hugo Johnson MD Victor Hugo JOHNSON MD 03/15/2017 12:08:07 PM This report has been signed electronically. Number of Addenda: 0 Note Initiated On: 03/15/2017 11:39 AM Estimated Blood Loss: Estimated blood loss: none.
[2017-03-15 12:25] VITALS: BP 116/62
== END ==
LOC: M OPP 10:21
PROVIDERS: ATTEND Internal Medicine Gastroenterology
DX: R10.9 Unspecified abdominal pain (principal); K64.8 Other hemorrhoids; K57.30 Diverticulosis of large intestine without perforation or abscess without bleeding; R93.3 Abnormal findings on diagnostic imaging of other parts of digestive tract; R63.4 Abnormal weight loss; R19.4 Change in bowel habit; G43.909 Migraine, unspecified, not intractable, without status migrainosus; E11.9 Type 2 diabetes mellitus without complications; G37.9 Demyelinating disease of central nervous system, unspecified; E05.00 Thyrotoxicosis with diffuse goiter without thyrotoxic crisis or storm; I73.00 Raynaud's syndrome without gangrene; M79.7 Fibromyalgia; M19.90 Unspecified osteoarthritis, unspecified site; Z79.84 Long term (current) use of oral hypoglycemic drugs; Z79.899 Other long term (current) drug therapy

== ENCOUNTER → 2017-04-21 | Outpatient (CLI) | payer MEDICARE, MEDICAID ==
[~2017-04-21] MED LIST changes: -LIDOCAINE 2% INJ 100 MG/5 ML SDV (FOR ANES.) As Ordered ONE; -NS 1,000 ML IV ONE; -PROPOFOL 200 MG/20 ML VIAL As Ordered ONE; -ePHEDrine SULFATE 25 MG/5 ML(5MG/ML) SYRINGE As Ordered ONE
--- NOTE | 2017-04-21 14:06 | REP ---
NUCLEAR GASTRIC EMPTYING SCAN: Following the oral administration of the 1.05 mCi of technetium-99m sulfur colloid in two scrambled eggs and 6 ounces of water multiple images of the upper abdomen are performed in the anterior and posterior projections. At the end of 90 minutes 80% of the ingested activity has emptied from the stomach. This yields a T1/2 of 56 minutes which is normal. IMPRESSION: Normal gastric emptying. Signed by Guido Molina MD 04/21/2017 05:14 P
== END ==
LOC: M RAD 08:16
PROVIDERS: ATTEND Physician Assistant Medical
DX: R10.10 Upper abdominal pain, unspecified (principal); R63.4 Abnormal weight loss
CPT/HCPCS: 78264; A9541

== ENCOUNTER → 2017-04-28 | Outpatient (REF) | payer MEDICARE, MEDICAID ==
[~2017-04-28] MED LIST changes: -ATOR1TAB18 PO; +ATOR80TA59 PO; -BACL-67 PO; +BACL1TAB9 PO; -METF1000 PO; +METF10004 PO; +VITA1CAP40 PO; -VITA50003 PO
== END ==
LOC: M LAB REF 10:32
PROVIDERS: ATTEND Physician Assistant Medical
DX: R19.7 Diarrhea, unspecified (principal); R10.10 Upper abdominal pain, unspecified; R63.4 Abnormal weight loss

== ENCOUNTER → 2017-05-16 | Outpatient (CLI) | payer MEDICARE, MEDICAID ==
[2017-05-16 08:05] LABS: BASO # 0.1 K/mm3 (0.0-0.2); BASO % 0.7 % (0.0-1.0); EOS # 0.3 K/mm3 (0.0-0.50); EOS % 2.3 % (0.0-3.0); LYMPH # 3.5 K/mm3 (1.5-4.5); LYMPH % 23.5 % (24.0-44.0); MEAN CORPUSCULAR HEMOGLOBIN 33.5 pg (27.0-33.0); MEAN CORPUSCULAR HGB CONC 34.7 g/dl (32.0-36.5); MEAN CORPUSCULAR VOLUME 96.4 fl (80.0-96.0); MONO # 0.6 K/mm3 (0.0-0.8); MONO % 4.1 % (0.0-5.0); NEUTROPHILS # 9.7 K/mm3 (1.8-7.7); NEUTROPHILS % 68.1 % (36.0-66.0); WHITE BLOOD COUNT 14.2 K/mm3 (4.0-10.0)
[2017-05-16 08:10] LABS: ALBUMIN 4.1 GM/DL (3.2-5.2); ALBUMIN/GLOBULIN RATIO 1.64 (1.00-1.93); BILIRUBIN,TOTAL 0.5 MG/DL (0.2-1.0); CALCIUM LEVEL 9.1 MG/DL (8.5-10.1); CREATININE FOR GFR 1.06 MG/DL (0.55-1.02); GLOMERULAR FILTRATION RATE 57.3 (>51); POTASSIUM SERUM 4.4 MEQ/L (3.5-5.1); TOTAL PROTEIN 6.6 GM/DL (6.4-8.2)
== END ==
LOC: M LAB 07:11
PROVIDERS: ATTEND Physician Assistant Medical
DX: E11.9 Type 2 diabetes mellitus without complications (principal)

== ENCOUNTER → 2017-05-20 | Outpatient (CLI) | payer MEDICARE, MEDICAID ==
--- NOTE | 2017-05-20 12:12 | REP ---
Supine abdomen single AP view: Comparison is the CT of the abdomen and pelvis dated 02/03/2017. The bowel gas pattern is normal. There are no calcifications. The skeletal structures and soft tissues are unremarkable. Impression: Normal bowel gas pattern. Signed by Guido Elise MD 05/20/2017 12:04 P
== END ==
LOC: M RAD 11:11
PROVIDERS: ATTEND Physician Assistant Medical
DX: R19.8 Other specified symptoms and signs involving the digestive system and abdomen (principal); R10.10 Upper abdominal pain, unspecified

== ENCOUNTER → 2017-05-31 | Outpatient (CLI) | payer MEDICARE, MEDICAID ==
--- NOTE | 2017-06-14 02:02 | ECWPNPC ---
PATIENT NAME: ARABELLA ROSS : 1960 GENDER: FEMALE VISIT DATE: 05/31/2017 DISCHARGE DATE: 05/31/17 1501 VISIT LOCKED DATE TIME: PHYSICIAN: FLORESITA BROWN RESOURCE: FLORESITA BROWN REASON FOR APPOINTMENT 1. LOW BACK PAIN HISTORY OF PRESENT ILLNESS HISTORY OF PRESENT ILLNESS: PAIN THE PATIENT DESCRIBES THE PAIN... 56 YEAR OLD FEMALE PATIENT WITH HISTORY OF CHRONIC LOW BACK PAIN. PATIENT DESCRIBES THE PAIN ACHING, SHARP, STABBING, TENDER, SORE, AND HAVING IT ALL THE TIME WITH A PAIN SCORE OF 7/10. CURRENTLY THE PATIENT IS USING TYLENOL, TIZANIDINE AND BACLOFEN FOR PAIN MANAGEMENT. PATIENT STATES THAT ANY TYPE OF ACTIVITY INCREASES THE PAIN IN HER LOWER BACK INCLUDING WALKING, STANDING, AND SITTING. PATIENT DENIES UNEXPLAINABLE WEIGHT LOSS, FEVER, CHILLS, NEW CHANGES ON HER URINARY OR BOWEL CONTROL. FALL RISK SCREENING: SCREENING :NO FALLS IN THE PAST YEAR CURRENT MEDICATIONS TAKING TIZANIDINE HCL 4 MG TABLET 1 TABLET NEEDED ORALLY 3 X A DAY TAKING FISH OIL 1000 MG CAPSULE 1 ORALLY 3 X A DAY TAKING TYLENOL EXTRA STRENGTH 500 MG TABLET 2 TABLET NEEDED ORALLY EVERY 8 HRS NEEDED FOR H/A TAKING METFORMIN HCL 1000 MG TABLET 1 TABLET WITH MEALS ORALLY TWICE A DAY TAKING NORTRIPTYLINE HCL 25 MG CAPSULE 1 CAPSULE ORALLY TWICE DAILY TAKING BACLOFEN 20 MG TABLET 1 TABLET WITH FOOD OR MILK ORALLY THREE TIMES A DAY TAKING ROPINIROLE HCL 1 MG TABLET 1 TABLET ORALLY FOUR X DAILY TAKING ZONISAMIDE 50 MG CAPSULE 1 CAP ORALLY 1 AM / 2 HS TAKING VITAMIN D 5000 TABLET ORALLY ONCE DAILY TAKING ROSUVASTATIN CALCIUM 40 MG TABLET 1 TABLET ORALLY ONCE A DAY TAKING POLYETHYLENE GLYCOL 3350 POWDER 17 GRAMS ORALLY DAILY TAKING SYNTHROID 75 MCG TABLET 1 TABLET ON AN EMPTY STOMACH IN THE MORNING ORALLY ONCE A DAY NOT-TAKING LEVOTHROID 88 MCG TABLET 1 TABLET ON AN EMPTY STOMACH IN THE MORNING ORALLY ONCE A DAY NOT-TAKING VITAMIN D (ERGOCALCIFEROL) 96435 UNIT CAPSULE 1 CAPSULE ORALLY WEEKLY NOT-TAKING INVOKANA 300 MG TABLET 1 TABLET ORALLY ONCE A DAY NOT-TAKING ASPERCREME W/LIDOCAINE 4 % CREAM DIRECTED EXTERNALLY EVERY 4 HOURS NEEDED FOR PAIN MEDICATION LIST REVIEWED AND RECONCILED WITH THE PATIENT PAST MEDICAL HISTORY 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 HYPERLIPIDEMIA ARTHRITIS DDD/DD FRACTURE-LEFT ANKLE X 2 GRAVES DISEASE-2012 RIGHT HIP BURSITIS MRSA LEFT GROIN 2012, I AND D TYPE II DIABETES DYSTONIA RIGHT FOOT VERTIGO FIBROMYALGIA WITH LOW BACK AND NECK PAIN MUSCLE SPASMS SEES 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 SPINAL STENOSIS UPPER ABDOMINAL PAIN REVIEW OF SYSTEMS REVIEWED BY: PROVIDER: FLORESITA BROWN MD . CONSTITUTIONAL: ANY CHANGE IN YOUR MEDICAL CONDITION? NO . CHILLS NO . FEVER NO . INFECTION: DO YOU HAVE NEW INFECTIONS? NO . DO YOU HAVE HISTORY OF MRSA? NO . MUSCULOSKELETAL: ANY NEW PATTERNS OF PAIN OR NUMBNESS? YES, NOINCREASED PAIN IN BUTTOCKS MORE IN THE RIGHT . GASTROENTEROLOGY: ANY NEW CHANGE IN BOWEL CONTROL? NO . GENITOURINARY: ANY NEW CHANGE IN BLADDER CONTROL? YES . IS THERE A CHANCE YOU COULD BE ? NO . HEMATOLOGY/LYMPH: DO YOU TAKE ANY BLOOD THINNERS? (FOR EXAMPLE- COUMADIN, PLAVIX, AGGRENOX, PLATEL, PRADAXA, OR XARELTO) NO . WHEN WAS YOUR LAST DOSE? DATE: TIME: . NEUROLOGY: HAVE YOU FALLEN IN THE PAST 6 MONTHS? NO . ANY NEW EXTREMITY NUMBNESS OR WEAKNESS? NO . CARDIOLOGY: DO YOU HAVE A PACEMAKER OR DEFIBRILLATOR? NO . RESPIRATORY: HAVE YOU BEEN SICK IN THE PAST WEEK? NO . FEVER NO . FLU LIKE SYMPTOMS? NO . COUGH NO . INTEGUMENTARY: DO YOU HAVE ANY RASHES OR OPEN SORES? NO . ALLERGIC/IMMUNO: ARE YOU ALLERGIC TO SHELLFISH OR IV DYE? NO . ANY NEW ALLERGIES? NO . PSYCHIATRIC: DO YOU HAVE THOUGHTS OF HURTING YOURSELF OR SOMEONE ELSE? NO . ARE YOU ABUSED, NEGLECTED, OR IN AN UNSAFE ENVIRONMENT? NO . ENDOCRINOLOGY: ARE YOU DIABETIC? NO . OTHER: DO YOU NEED ANY PRESCRIPTIONS? NO . IF YES, PLEASE LIST: ____ . ANY NEW PROBLEMS WITH YOUR MEDICATIONS? NO . WHEN DID YOU LAST EAT? ____ . WHEN DID YOU LAST DRINK? ____ . WHAT DID YOU LAST DRINK? ____ . NAME OF PERSON DRIVING YOU HOME? ____ . DO YOU HAVE ANY OTHER QUESTIONS OR CONCERNS NO . VITAL SIGNS WT 112 LBS, HT 65 3/4, BMI 18.21 INDEX, BP 106/73 MM HG, HR 93 /MIN, RR 16 /MIN, TEMP 97.8 F, OXYGEN SAT % 95%, NA INITIALS AW 1259. EXAMINATION : PATIENT IS ALERT O X 3 AND COOPERATIVE. PATIENT HAS SOME TENDERNESS IN THE LUMBAR PARASPINAL GROUP, BUT ACCORDING TO THE PATIENT ITS NOT THAT BAD. BANDS OF TISSUE, RESTRICTION OF MOVEMENT, AND PRESENCE OF TRIGGER POINTS IN THE THORACIC AND LUMBAR AREA. MRI OF THE THORACIC SPINE DONE ON 02/17/16 SHOWS MILD DEGENERATIVE CHANGES. ASSESSMENTS MYALGIA - M79.1 (PRIMARY) TREATMENT MYALGIA NOTES: WE DISCUSSED SEVERAL ISSUES WITH MRS. ROSS'S PAIN MANAGEMENT CASE. AT THIS TIME THE PATIENT HAS BANDS OF TISSUE AND SPACTICITY IN THE LOWER BACK. I WOULD LIKE TO MOVE FORWARD WITH TRIGGER POINT INJECTIONS. WE DISCUSSED THE RISKS, BENENFITS, AND ALTNERATIVES OF THE INJECTION AND THE PATIENT WOULD LIKE TO PROCEED. INSTRUCTIONS WERE GIVEN, QUESTIONS WERE ANSWERED, PATIENT REPORTS UNDERSTANDING AND AGREES WITH THE PLAN. I, ZANE STARR, DOCUMENTED THE ABOVE INFORMATION ACTING A SCRIBE FOR DR. BROWN. I HAVE REVIEWED THE ABOVE DOCUMENT, WRITTEN BY ZANE VAIL AND I VERIFY THAT IT IS ACCURATE. PROCEDURE CODES FA211 ESTABILISHED PATIENT [facility] FACILITY CHARGE G8427 DOC MEDS VERIFIED W/PT OR RE G8730 PAIN ASSESS POS TOOL F/U PLAN DOC DISPOSITION & COMMUNICATION FOLLOW UP TPI AFTER APPROVAL ELECTRONICALLY SIGNED BY FLORESITA BROWN MD ON 06/13/2017 AT 08:29 PM EDT DISCLAIMER : THIS IS A VISIT SUMMARY EXTRACTED FROM THE [employer] CHART. IT IS NOT A COPY OF THE [employer] PROGRESS NOTE. [employer]TDD
== END ==
LOC: M PAIN 13:00
PROVIDERS: ATTEND Anesthesiology
DX: G89.29 Other chronic pain (principal); M54.5 Low back pain; M79.1 Myalgia; G37.9 Demyelinating disease of central nervous system, unspecified; G43.909 Migraine, unspecified, not intractable, without status migrainosus; E78.5 Hyperlipidemia, unspecified; M19.90 Unspecified osteoarthritis, unspecified site; E11.9 Type 2 diabetes mellitus without complications; G35 Multiple sclerosis; I73.00 Raynaud's syndrome without gangrene; Z79.84 Long term (current) use of oral hypoglycemic drugs; Z79.899 Other long term (current) drug therapy

== ENCOUNTER → 2017-06-10 | Outpatient (CLI) | payer MEDICARE, MEDICAID ==
[~2017-06-10] MED LIST changes: +BUPIVACAINE HCL 0.25% 10 ML VIAL As Ordered ONE; +BUPIVACAINE HCL 0.25% 30 ML VIAL As Ordered ONE; +TRIAMCINOLONE ACETONIDE SUSP 40 MG/ML VIAL (J3301) As Ordered ONE
--- NOTE | 2017-06-28 00:57 | ECWPNPC ---
PATIENT NAME: ARABELLA ROSS : 1960 GENDER: FEMALE VISIT DATE: 06/10/2017 DISCHARGE DATE: 06/10/17 1034 VISIT LOCKED DATE TIME: PHYSICIAN: FLORESITA BROWN RESOURCE: FLORESITA BROWN REASON FOR APPOINTMENT 1. TPI BILATERAL LOW BACK HISTORY OF PRESENT ILLNESS HISTORY OF PRESENT ILLNESS: PAIN THE PATIENT DESCRIBES THE PAIN... FALL RISK SCREENING: SCREENING :NO FALLS IN THE PAST YEAR CURRENT MEDICATIONS TAKING TIZANIDINE HCL 4 MG TABLET 1 TABLET NEEDED ORALLY 3 X A DAY, NOTES: 06/09/17 1400 TAKING FISH OIL 1000 MG CAPSULE 1 ORALLY 3 X A DAY, NOTES: 06/07/17 TAKING TYLENOL EXTRA STRENGTH 500 MG TABLET 2 TABLET NEEDED ORALLY EVERY 8 HRS NEEDED FOR H/A, NOTES: 06/09/17 1100 TAKING METFORMIN HCL 1000 MG TABLET 1 TABLET WITH MEALS ORALLY TWICE A DAY, NOTES: 06/09/17 2200 TAKING NORTRIPTYLINE HCL 25 MG CAPSULE 1 CAPSULE ORALLY TWICE DAILY, NOTES: 06/09/17 1400 TAKING BACLOFEN 20 MG TABLET 1 TABLET WITH FOOD OR MILK ORALLY THREE TIMES A DAY, NOTES: 06/09/17 1400 TAKING ROPINIROLE HCL 1 MG TABLET 1 TABLET ORALLY FOUR X DAILY, NOTES: 06/09/17 1400 TAKING ZONISAMIDE 50 MG CAPSULE 1 CAP ORALLY 1 AM / 2 HS, NOTES: 06/09/17 1400 TAKING VITAMIN D 5000 TABLET ORALLY ONCE DAILY, NOTES: 06/07/17 TAKING ROSUVASTATIN CALCIUM 40 MG TABLET 1 TABLET ORALLY ONCE A DAY, NOTES: 06/09/172199 TAKING POLYETHYLENE GLYCOL 3350 POWDER 17 GRAMS ORALLY DAILY, NOTES: 06/08/17 TAKING SYNTHROID 75 MCG TABLET 1 TABLET ON AN EMPTY STOMACH IN THE MORNING ORALLY ONCE A DAY, NOTES: 06/09/17 0600 TAKING GLIPIZIDE 10 MG TABLET 1 TABLET ORALLY BID, NOTES: 06/09/170 TAKING JARDIANCE 25 MG TABLET 1 TABLET ORALLY ONCE A DAY, NOTES: HAS NOT STARTED YET TAKING CREON 80232 UNIT CAPSULE DELAYED RELEASE PARTICLES ORALLY , NOTES: 06/09/172199 NOT-TAKING LEVOTHROID 75 MCG TABLET 1 TABLET ON AN EMPTY STOMACH IN THE MORNING ORALLY ONCE A DAY NOT-TAKING VITAMIN D (ERGOCALCIFEROL) 58552 UNIT CAPSULE 1 CAPSULE ORALLY WEEKLY NOT-TAKING INVOKANA 300 MG TABLET 1 TABLET ORALLY ONCE A DAY NOT-TAKING ASPERCREME W/LIDOCAINE 4 % CREAM DIRECTED EXTERNALLY EVERY 4 HOURS NEEDED FOR PAIN MEDICATION LIST REVIEWED AND RECONCILED WITH THE PATIENT PAST MEDICAL HISTORY 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 SURGICAL HISTORY D&C 1987 LEFT GROIN ABCESS WITH CELLULITIS -I AND D/ WAS MERSA 05/24/11 RADIO-ACTIVE IODINE FOR THYROID 06/06/12 EGD- DUE TO STOMACH PAIN CT SCAN APRIL 2016 COLONOSCOPY WITH POLYPS ,REPEAT 2018 10/06/2015 HOSPITALIZATION/MAJOR DIAGNOSTIC PROCEDURE ABCESS LEFT LEG WAS IN [facility] FOR 2 WEEKS 05/11 REVIEW OF SYSTEMS REVIEWED BY: PROVIDER: . CONSTITUTIONAL: ANY CHANGE IN YOUR MEDICAL CONDITION? NO . CHILLS NO . FEVER NO . INFECTION: DO YOU HAVE NEW INFECTIONS? NO . DO YOU HAVE HISTORY OF MRSA? NO . MUSCULOSKELETAL: ANY NEW PATTERNS OF PAIN OR NUMBNESS? NO . GASTROENTEROLOGY: ANY NEW CHANGE IN BOWEL CONTROL? NO . GENITOURINARY: ANY NEW CHANGE IN BLADDER CONTROL? NO . IS THERE A CHANCE YOU COULD BE ? NO . HEMATOLOGY/LYMPH: DO YOU TAKE ANY BLOOD THINNERS? (FOR EXAMPLE- COUMADIN, PLAVIX, AGGRENOX, PLATEL, PRADAXA, OR XARELTO) NO . WHEN WAS YOUR LAST DOSE? DATE: TIME: . NEUROLOGY: HAVE YOU FALLEN IN THE PAST 6 MONTHS? NO . ANY NEW EXTREMITY NUMBNESS OR WEAKNESS? NO . CARDIOLOGY: DO YOU HAVE A PACEMAKER OR DEFIBRILLATOR? NO . RESPIRATORY: HAVE YOU BEEN SICK IN THE PAST WEEK? NO . FEVER NO . FLU LIKE SYMPTOMS? NO . COUGH NO . INTEGUMENTARY: DO YOU HAVE ANY RASHES OR OPEN SORES? NO . ALLERGIC/IMMUNO: ARE YOU ALLERGIC TO SHELLFISH OR IV DYE? NO . ANY NEW ALLERGIES? NO . PSYCHIATRIC: DO YOU HAVE THOUGHTS OF HURTING YOURSELF OR SOMEONE ELSE? NO . ARE YOU ABUSED, NEGLECTED, OR IN AN UNSAFE ENVIRONMENT? NO . ENDOCRINOLOGY: ARE YOU DIABETIC? YES . OTHER: DO YOU NEED ANY PRESCRIPTIONS? NO . IF YES, PLEASE LIST: ____ . ANY NEW PROBLEMS WITH YOUR MEDICATIONS? NO . WHEN DID YOU LAST EAT? 06/09/17 2200 . WHEN DID YOU LAST DRINK? 06/10/17 0650 . WHAT DID YOU LAST DRINK? WATER . NAME OF PERSON DRIVING YOU HOME? BILLIE KOENIG . DO YOU HAVE ANY OTHER QUESTIONS OR CONCERNS NO . VITAL SIGNS WT 112 LBS, HT 65 3/4, BMI 18.21 INDEX, BP 93/58 MM HG, HR 90 /MIN, RR 16 /MIN, TEMP 97.2 F, OXYGEN SAT % 90%, BLOOD GLUCOSE LEVEL 142, SAFE IN ENV? (Y/N) Y, NA INITIALS WY 09:31, REVIEWED BY: NANCI. ASSESSMENTS MYALGIA - M79.1 (PRIMARY) PROCEDURES PN TRIGGER POINT INJECTION WITH STEROIDS PRE PROCEDURE DIAGNOSIS 1. MYALGIA 2. PAIN AT BILATERAL LOW BACK POST PROCEDURE DIAGNOSIS 1. MYALGIA 2. PAIN AT BILATERAL LOW BACK PROCEDURE TRIGGER POINT INJECTION AT RIGHT AND LEFT LOW BACK AREA SURGEON DR. FLORESITA BROWN DIETARY WORKER NONE ANESTHESIA LOCAL PRE PROCEDURE NOTE THE PATIENT HAS A HISTORY OF CHRONIC PAIN AT THE RIGHT AND LEFT LOW BACK AREA. I EVALUATE THE PATIENT AND REVIEWED THE CHART. THERE IS EVIDENCE OF BANDS OF TISSUE WITH RESTRICTION OF MOVEMENT AND PRESENCE OF TRIGGER POINT AT THE AFFECTED AREA. I WENT OVER THE RISKS, ALTERNATIVES, AND BENEFITS ASSOCIATED WITH THIS PROCEDURE. THE PATIENT WOULD LIKE TO PROCEED AND GIVE CONSENT TO PERFORMED THE PROCEDURE. THE PATIENT DENIES UNEXPLAINABLE WEIGHT LOSS, FEVER, CHILLS, OR NEW CHANGES IN URINARY OR BOWEL CONTROL DESCRIPTION OF PROCEDURE THE PATIENT WAS BROUGHT TO THE PROCEDURE ROOM AND PLACED IN THE SITTING POSITION. THE AREA WAS CLEANED WITH ALCOHOL. THE PROCEDURE WAS DONE USING ASEPTIC STERILE TECHNIQUE. I CHECKED LATERALITY AND THE LEVEL WHERE THE PROCEDURE WAS GOING TO BE PERFORMED WITH THE PATIENT AND THE SUPPORTING STAFF AT THE MOMENT OF THE TIME OUT IN THE PROCEDURE ROOM. USING A 25-GAUGE NEEDLE, TRIGGER POINTS WERE INJECTED AT THE RIGHT AND LEFT LOW BACK AREA WITH A TOTAL OF 40 ML OF BUPIVACAINE 0.25% AND KENALOG 40 MG. THERE WAS NO EVIDENCE OF BLOOD, PARESTHESIA OR CEREBROSPINAL FLUID DURING THE PROCEDURE. THE PATIENT WAS SENT TO THE RECOVERY ROOM. THE PATIENT WAS MOVING THE EXTREMITIES AND DOING WELL. THERE WAS NO COMPLICATION DURING THE PROCEDURE POST PROCEDURE NOTE THE PATIENT WILL BE SEEN IN A FOLLOW UP IN THE NEXT FEW WEEKS. INSTRUCTIONS WERE GIVEN, QUESTIONS WERE ANSWERED, AND THE PATIENT EXPRESSED UNDERSTANDING AND AGREES WITH THE PLAN. I ANUEL PRETTY DOCUMENTED THE ABOVE INFORMATION ACTING A CANDY DECORATOR FOR DR. BROWN. I HAVE REVIEWED THE ABOVE DOCUMENT WRITTEN BY ANUEL PRETTY SCRIBJosh AND I VERIFY THAT IT IS ACCURATE. PROCEDURE CODES 82924 INJ TRIGGER POINT / MUSCL DISPOSITION & COMMUNICATION FOLLOW UP 3 WEEKS ELECTRONICALLY SIGNED BY FLORESITA BROWN MD ON 06/27/2017 AT 06:33 PM EDT DISCLAIMER : THIS IS A VISIT SUMMARY EXTRACTED FROM THE [employer] CHART. IT IS NOT A COPY OF THE [employer] PROGRESS NOTE. DIEGO
== END | disposition home or self-care (01) ==
LOC: M PAIN 09:30
PROVIDERS: ATTEND Anesthesiology
DX: G89.29 Other chronic pain (principal); M79.1 Myalgia; G43.909 Migraine, unspecified, not intractable, without status migrainosus; G37.9 Demyelinating disease of central nervous system, unspecified; E78.5 Hyperlipidemia, unspecified; M19.90 Unspecified osteoarthritis, unspecified site; M51.36 Other intervertebral disc degeneration, lumbar region; E11.9 Type 2 diabetes mellitus without complications; G35 Multiple sclerosis; I73.00 Raynaud's syndrome without gangrene; Z79.84 Long term (current) use of oral hypoglycemic drugs; Z79.899 Other long term (current) drug therapy

== ENCOUNTER → 2017-06-29 | Outpatient (CLI) | payer MEDICARE, MEDICAID ==
[~2017-06-29] MED LIST changes: -BUPIVACAINE HCL 0.25% 10 ML VIAL As Ordered ONE; -BUPIVACAINE HCL 0.25% 30 ML VIAL As Ordered ONE; -TRIAMCINOLONE ACETONIDE SUSP 40 MG/ML VIAL (J3301) As Ordered ONE
[2017-06-29 08:58] LABS: BASO # 0.1 K/mm3 (0.0-0.2); BASO % 0.8 % (0.0-1.0); EOS # 0.3 K/mm3 (0.0-0.50); EOS % 2.2 % (0.0-3.0); LYMPH # 3.3 K/mm3 (1.5-4.5); LYMPH % 23.3 % (24.0-44.0); MEAN CORPUSCULAR HEMOGLOBIN 33.4 pg (27.0-33.0); MEAN CORPUSCULAR HGB CONC 35.1 g/dl (32.0-36.5); MEAN CORPUSCULAR VOLUME 95.1 fl (80.0-96.0); MONO # 0.6 K/mm3 (0.0-0.8); MONO % 4.3 % (0.0-5.0); NEUTROPHILS # 9.1 K/mm3 (1.8-7.7); NEUTROPHILS % 68.1 % (36.0-66.0); RED CELL DISTRIBUTION WIDTH 13.4 % (11.5-14.5); WHITE BLOOD COUNT 13.4 K/mm3 (4.0-10.0)
[2017-06-29 09:20] LABS: ALBUMIN 4.1 GM/DL (3.2-5.2); ALBUMIN/GLOBULIN RATIO 1.21 (1.00-1.93); ALKALINE PHOSPHATASE 95 U/L (45-117); ALT/SGPT 43 U/L (12-78); ANION GAP 12 MEQ/L (8-16); AST/SGOT 27 U/L (15-37); BILIRUBIN,TOTAL 0.4 MG/DL (0.2-1.0); BLOOD UREA NITROGEN 18 MG/DL (7-18); CALCIUM LEVEL 9.4 MG/DL (8.5-10.1); CARBON DIOXIDE LEVEL 23 MEQ/L (21-32); CHLORIDE LEVEL 108 MEQ/L (98-107); CREATININE FOR GFR 0.94 MG/DL (0.55-1.02); GLOMERULAR FILTRATION RATE > 60.0 (>51); GLUCOSE, FASTING 202 MG/DL (70-105); SODIUM LEVEL 143 MEQ/L (136-145); TOTAL PROTEIN 7.5 GM/DL (6.4-8.2)
== END ==
LOC: M LAB 08:24
PROVIDERS: ATTEND Physician Assistant Medical
DX: E11.9 Type 2 diabetes mellitus without complications (principal)

== ENCOUNTER → 2017-07-07 | Outpatient (CLI) | payer MEDICARE, MEDICAID ==
[2017-07-07 12:36] LABS: BASO # 0.1 K/mm3 (0.0-0.2); BASO % 0.7 % (0.0-1.0); EOS # 0.2 K/mm3 (0.0-0.50); EOS % 1.9 % (0.0-3.0); LYMPH # 2.9 K/mm3 (1.5-4.5); LYMPH % 26.5 % (24.0-44.0); MEAN CORPUSCULAR HEMOGLOBIN 33.1 pg (27.0-33.0); MEAN CORPUSCULAR HGB CONC 34.8 g/dl (32.0-36.5); MEAN CORPUSCULAR VOLUME 95.1 fl (80.0-96.0); MONO # 0.5 K/mm3 (0.0-0.8); MONO % 4.7 % (0.0-5.0); NEUTROPHILS % 64.2 % (36.0-66.0); RED CELL DISTRIBUTION WIDTH 12.7 % (11.5-14.5); WHITE BLOOD COUNT 10.9 K/mm3 (4.0-10.0)
[2017-07-07 12:42] LABS: CORTISOL AM 28.6 UG/DL (4.3-22.4)
[2017-07-07 12:43] LABS: FOLATE 16.5 NG/ML; VITAMIN B12 LEVEL 862 PG/ML
[2017-07-07 14:05] LABS: ALBUMIN 4.4 GM/DL (3.2-5.2); ALBUMIN/GLOBULIN RATIO 1.29 (1.00-1.93); ALKALINE PHOSPHATASE 98 U/L (45-117); ALT/SGPT 29 U/L (12-78); ANION GAP 13 MEQ/L (8-16); AST/SGOT 12 U/L (15-37); BILIRUBIN,TOTAL 0.4 MG/DL (0.2-1.0); BLOOD UREA NITROGEN 18 MG/DL (7-18); CALCIUM LEVEL 9.4 MG/DL (8.5-10.1); CARBON DIOXIDE LEVEL 23 MEQ/L (21-32); CHLORIDE LEVEL 101 MEQ/L (98-107); CREATININE FOR GFR 0.98 MG/DL (0.55-1.02); GLOMERULAR FILTRATION RATE > 60.0 (>51); GLUCOSE, FASTING 262 MG/DL (70-105); SODIUM LEVEL 137 MEQ/L (136-145); TOTAL PROTEIN 7.8 GM/DL (6.4-8.2)
[2017-07-09 00:06] LABS: Lyme Disease IgG/IgM Antibodie <0.91 ISR (0.00-0.90); Lyme Disease IgM Ab Quantitati <0.80 index (0.00-0.79)
[2017-07-11 14:52] LABS: ALBUMIN 4.91 GM/DL (3.29-5.55); GAMMA GLOBULIN % 8.2 % (11.1-18.8)
== END ==
LOC: M LAB 09:46
PROVIDERS: ATTEND Physician Assistant Medical
DX: R63.4 Abnormal weight loss (principal)

== ENCOUNTER → 2017-07-11 | Outpatient (CLI) | payer MEDICARE, MEDICAID ==
[~2017-07-11] MED LIST changes: +GASTROGRAFIN SOLUTION 30ML (Q9963) As Ordered ONE; +ISOVUE-370 76% 100ML VIAL (Q9967) As Ordered ONE
--- NOTE | 2017-07-11 15:17 | REP ---
Clinical: Abnormal weight loss. Technique: Axial contrast enhanced images from the lung bases to the pubic symphysis using oral and 100 ml Isovue 370 intravenous contrast material with coronal and sagittal re-formations. Comparison: 02/03/2017. Findings: Lung bases are clear. Visualized heart and pericardium are normal. Liver, spleen, pancreas, gallbladder, bilateral adrenal glands are normal. Kidneys demonstrate distended extrarenal pelvises and hydronephrosis which may reflect bilateral ureteropelvic junction obstruction. The enteric system is without obstruction or acute inflammatory process. Pelvis demonstrates normal bladder and age-appropriate uterus/adnexa. No pelvic fluid or ascites. No obvious adenopathy. No free air. Atherosclerotic changes to the vasculature noted without aneurysm. Musculoskeletal structures demonstrate stable age related changes. Impression: 1. Bilateral extrarenal pelvises with findings to suggest hydronephrosis possibly related to partial UPJ obstructions. 2. The small pleural based linear density in the right middle lobe which has been followed on subsequent examinations represent a scar and requires no further investigation. 3. No further acute abdominopelvic pathology appreciated. Signed by Edison Paulino MD 07/11/2017 03:09 P
== END ==
LOC: M RAD 12:53
PROVIDERS: ATTEND Physician Assistant Medical
DX: R63.4 Abnormal weight loss (principal)
CPT/HCPCS: 74177; Q9963; Q9967

== ENCOUNTER → 2017-07-15 | Outpatient (CLI) | payer MEDICARE, MEDICAID ==
[~2017-07-15] MED LIST changes: -GASTROGRAFIN SOLUTION 30ML (Q9963) As Ordered ONE; -ISOVUE-370 76% 100ML VIAL (Q9967) As Ordered ONE
--- NOTE | 2017-07-21 01:32 | ECWPNPC ---
PATIENT NAME: ARABELLA ROSS : 1960 GENDER: FEMALE VISIT DATE: 07/15/2017 DISCHARGE DATE: 07/15/17 1207 VISIT LOCKED DATE TIME: PHYSICIAN: FLORESITA BROWN RESOURCE: FLORESITA BORWN REASON FOR APPOINTMENT 1. LOW BACK PAIN HISTORY OF PRESENT ILLNESS HISTORY OF PRESENT ILLNESS: PAIN THE PATIENT DESCRIBES THE PAIN... 56 YEAR OLD FEMALE PATIENT WITH HISTORY OF CHRONIC LOW BACK PAIN. PATIENT DESCRIBES THE PAIN ACHING, BURNING, SHARP, STABBING, TENDER, SORE, AND HAVING IT ALL THE TIME WITH A PAIN SCORE OF 7-8/10 WHILE SITTING AND 0/10 WHILE STANDING. PATIENT RECEIVED A TRIGGER POINT INJECTION ON 06/10/17 FOR THE LOWER BACK AND REPORTS THAT THE PAIN IS GONE WHILE STANDING BUT SHE STILL HAS PAIN WHILE SITTING. PATIENT DENIES UNEXPLAINABLE WEIGHT LOSS, FEVER, CHILLS, NEW CHANGES ON HER URINARY OR BOWEL CONTROL. FALL RISK SCREENING: SCREENING :NO FALLS IN THE PAST YEAR CURRENT MEDICATIONS TAKING TIZANIDINE HCL 4 MG TABLET 1 TABLET NEEDED ORALLY 3 X A DAY, NOTES: 06/09/17 1400 TAKING FISH OIL 1000 MG CAPSULE 1 ORALLY 3 X A DAY, NOTES: 06/07/17 TAKING TYLENOL EXTRA STRENGTH 500 MG TABLET 2 TABLET NEEDED ORALLY EVERY 8 HRS NEEDED FOR H/A, NOTES: 06/09/17 1100 TAKING METFORMIN HCL 1000 MG TABLET 1 TABLET WITH MEALS ORALLY TWICE A DAY, NOTES: 06/09/17 2200 TAKING NORTRIPTYLINE HCL 25 MG CAPSULE 1 CAPSULE ORALLY TWICE DAILY, NOTES: 06/09/17 1400 TAKING BACLOFEN 20 MG TABLET 1 TABLET WITH FOOD OR MILK ORALLY THREE TIMES A DAY, NOTES: 06/09/17 1400 TAKING ROPINIROLE HCL 1 MG TABLET 1 TABLET ORALLY FOUR X DAILY, NOTES: 06/09/17 1400 TAKING ZONISAMIDE 50 MG CAPSULE 1 CAP ORALLY 1 AM / 2 HS, NOTES: 06/09/17 1400 TAKING VITAMIN D 5000 TABLET ORALLY ONCE DAILY, NOTES: 06/07/17 TAKING ROSUVASTATIN CALCIUM 40 MG TABLET 1 TABLET ORALLY ONCE A DAY, NOTES: 06/09/17 2200 TAKING POLYETHYLENE GLYCOL 3350 POWDER 17 GRAMS ORALLY DAILY, NOTES: 06/08/17 TAKING SYNTHROID 75 MCG TABLET 1 TABLET ON AN EMPTY STOMACH IN THE MORNING ORALLY ONCE A DAY, NOTES: 06/09/17 0600 TAKING GLIPIZIDE 10 MG TABLET 1 TABLET ORALLY BID, NOTES: 06/09/170 TAKING JARDIANCE 25 MG TABLET 1 TABLET ORALLY ONCE A DAY, NOTES: HAS NOT STARTED YET TAKING CREON 64762 UNIT CAPSULE DELAYED RELEASE PARTICLES ORALLY , NOTES: 06/09/17 2200 TAKING PROAIR HFA 108 (90 BASE) MCG/ACT AEROSOL SOLUTION 2 PUFFS NEEDED INHALATION EVERY 4 HRS TAKING LEVOTHROID 75 MCG TABLET 1 TABLET ON AN EMPTY STOMACH IN THE MORNING ORALLY ONCE A DAY NOT-TAKING ASPERCREME W/LIDOCAINE 4 % CREAM DIRECTED EXTERNALLY EVERY 4 HOURS NEEDED FOR PAIN DISCONTINUED VITAMIN D (ERGOCALCIFEROL) 26987 UNIT CAPSULE 1 CAPSULE ORALLY WEEKLY DISCONTINUED INVOKANA 300 MG TABLET 1 TABLET ORALLY ONCE A DAY MEDICATION LIST REVIEWED AND RECONCILED WITH THE PATIENT PAST MEDICAL HISTORY 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 SOCIAL HISTORY GENERAL: TOBACCO USE ARE YOU A:CURRENT SMOKER HOW MANY CIGARETTES A DAY DO YOU SMOKE?11-20 PATIENT COUNSELED ON THE DANGERS OF TOBACCO USE AND URGED TO QUIT:07/15/2017 ARE YOU INTERESTED IN QUITTING?NOT READY TO QUIT COUNSELED THE PATIENT ON SMOKING EFFECTS, EDUCATION [id number]/15/2017 PAIN CLINIC PFS, CLERGY, PUBLIC HEALTH REFERRALS PFS REFERRAL NEEDED?NO CLERGY REFERRAL NEEDED?NO PUBLIC HEALTH REFERRAL NEEDED?NO WAS THE PROVIDER NOTIFIED OF ANY PERTINENT INFO?NO HAS THE PATIENT BEEN EDUCATED REGARDING HIS/HER PLAN OF CARE?YES HAS THE PATIENT BEEN EDUCATED REGARDING PAIN, THE RISK FOR PAIN, THE IMPORTANCE OF EFFECTIVE PAIN MANAGEMENT, AND THE PAIN ASSESSMENT PROCESS?YES PATIENT: ____. REVIEW OF SYSTEMS REVIEWED BY: PROVIDER: FLORESITA BROWN MD . CONSTITUTIONAL: ANY CHANGE IN YOUR MEDICAL CONDITION? NO . CHILLS NO . FEVER NO . INFECTION: DO YOU HAVE NEW INFECTIONS? NO . DO YOU HAVE HISTORY OF MRSA? NO . MUSCULOSKELETAL: ANY NEW PATTERNS OF PAIN OR NUMBNESS? NO . GASTROENTEROLOGY: ANY NEW CHANGE IN BOWEL CONTROL? NO . GENITOURINARY: ANY NEW CHANGE IN BLADDER CONTROL? NO . IS THERE A CHANCE YOU COULD BE ? NO . HEMATOLOGY/LYMPH: DO YOU TAKE ANY BLOOD THINNERS? (FOR EXAMPLE- COUMADIN, PLAVIX, AGGRENOX, PLATEL, PRADAXA, OR XARELTO) NO . WHEN WAS YOUR LAST DOSE? DATE: TIME: . NEUROLOGY: HAVE YOU FALLEN IN THE PAST 6 MONTHS? NO . ANY NEW EXTREMITY NUMBNESS OR WEAKNESS? NO . CARDIOLOGY: DO YOU HAVE A PACEMAKER OR DEFIBRILLATOR? NO . RESPIRATORY: HAVE YOU BEEN SICK IN THE PAST WEEK? NO . FEVER NO . FLU LIKE SYMPTOMS? NO . COUGH NO . INTEGUMENTARY: DO YOU HAVE ANY RASHES OR OPEN SORES? NO . ALLERGIC/IMMUNO: ARE YOU ALLERGIC TO SHELLFISH OR IV DYE? NO . ANY NEW ALLERGIES? NO . PSYCHIATRIC: DO YOU HAVE THOUGHTS OF HURTING YOURSELF OR SOMEONE ELSE? NO . ARE YOU ABUSED, NEGLECTED, OR IN AN UNSAFE ENVIRONMENT? NO . ENDOCRINOLOGY: ARE YOU DIABETIC? YES . OTHER: DO YOU NEED ANY PRESCRIPTIONS? NO . IF YES, PLEASE LIST: ____ . ANY NEW PROBLEMS WITH YOUR MEDICATIONS? NO . WHEN DID YOU LAST EAT? ____ . WHEN DID YOU LAST DRINK? ____ . WHAT DID YOU LAST DRINK? ____ . NAME OF PERSON DRIVING YOU HOME? ____ . DO YOU HAVE ANY OTHER QUESTIONS OR CONCERNS NO . VITAL SIGNS WT 106 LBS, HT 65 3/4, BMI 17.24 INDEX, BP 93/59 MM HG, HR 94 /MIN, RR 16 /MIN, TEMP 98.0 F, OXYGEN SAT % 97%, NA INITIALS SC 11:31, REVIEWED BY: CM. EXAMINATION : PATIENT IS ALERT O X 3 AND COOPERATIVE. PATIENT HAS SOME TENDERNESS IN THE LUMBAR PARASPINAL GROUP, BUT ACCORDING TO THE PATIENT ITS NOT THAT BAD. BANDS OF TISSUE, RESTRICTION OF MOVEMENT, AND PRESENCE OF TRIGGER POINTS IN THE THORACIC AND LUMBAR AREA. MRI OF THE THORACIC SPINE DONE ON 02/17/16 SHOWS MILD DEGENERATIVE CHANGES. ASSESSMENTS MYALGIA - M79.1 (PRIMARY) TREATMENT MYALGIA NOTES: WE DISCUSSED SEVERAL ISSUES WITH MRS. ROSS'S PAIN MANAGEMENT CASE. AT THIS TIME THE PATIENT STATES THAT THE TRIGGER POINT INJECTION DONE ON 06/10/17 GAVE HER OVER 50% RELIEF FROM PAIN WHILE STANDING BUT SHE STILL HAS PAIN WHEN SHE SITS. DUE TO THIS I WOULD LIKE THE PATIENT TO START USING A TENNS UNIT TO SEE IT IF WILL AID IN PAIN RELIEF. PATIENT WILL FOLLOW UP IN 6 WEEKS. INSTRUCTIONS WERE GIVEN, QUESTIONS WERE ANSWERED, PATIENT REPORTS UNDERSTANDING AND AGREES WITH THE PLAN. I, ZANE STARR, DOCUMENTED THE ABOVE INFORMATION ACTING A SCRIBE FOR DR. BROWN. I HAVE REVIEWED THE ABOVE DOCUMENT, WRITTEN BY ZANE NEWIBJosh AND I VERIFY THAT IT IS ACCURATE. PROCEDURE CODES FA211 ESTABILISHED PATIENT [facility] FACILITY CHARGE G8427 DOC MEDS VERIFIED W/PT OR RE G8730 PAIN ASSESS POS TOOL F/U PLAN DOC DISPOSITION & COMMUNICATION FOLLOW UP 6 WEEKS ELECTRONICALLY SIGNED BY FLORESITA BROWN MD ON 07/20/2017 AT 01:34 PM EDT DISCLAIMER : THIS IS A VISIT SUMMARY EXTRACTED FROM THE [employer] CHART. IT IS NOT A COPY OF THE [employer] PROGRESS NOTE. DIEGO
== END ==
LOC: M PAIN 10:45
PROVIDERS: ATTEND Anesthesiology
DX: M79.1 Myalgia (principal); G89.29 Other chronic pain; E11.9 Type 2 diabetes mellitus without complications; G35 Multiple sclerosis; E05.00 Thyrotoxicosis with diffuse goiter without thyrotoxic crisis or storm; F17.210 Nicotine dependence, cigarettes, uncomplicated; Z79.84 Long term (current) use of oral hypoglycemic drugs; Z79.899 Other long term (current) drug therapy

== ENCOUNTER → 2017-08-12 | Outpatient (CLI) | payer MEDICARE, MEDICAID ==
--- NOTE | 2017-08-12 13:45 | REP ---
Radionuclide renal scintigraphy with differential flow and function analysis: History: Hydronephrosis with obstruction. Chronic back pain. Comparison CT study July 11, 2017. Findings were suggestive of bilateral UPJ obstruction and hydronephrosis. Technique: 8.7 mCi technetium 99m MAG3 is injected and sequential posterior flow and excretory phase images are acquired. Renal cortical regions of interest are drawn and time activity curves are plotted for renal function analysis. Findings: Posterior flow study shows symmetric perfusion of the renal beds. Excretory phase images show no evidence of intrarenal mass on either side. There is symmetric labeling of the intrarenal collecting system with today's study confirming dilation of the intrarenal collecting system and renal pelves. The ureters are labeled and radiopharmaceutical is seen in the urinary bladder. Postvoid imaging shows persistent dilation of the upper tracts. Differential renal function analysis is essentially normal with 43% of overall renal cortical counts coming from the left kidney and 57% from the right. Time to peak activity is normal bilaterally at 2.0 minutes. Time to half max activity is normal on the left at 10 minutes and slightly delayed on the right at 17 minutes. Impression: Bilateral hydronephrosis with dilated intrarenal collecting system and renal pelves. Partial UPJ obstruction suspected. Normal symmetric excretory function. Signed by Everardo Bales MD 08/12/2017 03:14 P
== END ==
LOC: M RAD 10:05
PROVIDERS: ATTEND Internal Medicine Nephrology
DX: N13.0 Hydronephrosis with ureteropelvic junction obstruction (principal); N18.2 Chronic kidney disease, stage 2 (mild)
CPT/HCPCS: 78707; A9562

== ENCOUNTER → 2017-08-26 | Outpatient (CLI) | payer MEDICARE, MEDICAID ==
--- NOTE | 2017-09-12 00:03 | ECWPNPC ---
PATIENT NAME: ARABELLA ROSS : 1960 GENDER: FEMALE VISIT DATE: 08/26/2017 DISCHARGE DATE: 08/26/17 1012 VISIT LOCKED DATE TIME: PHYSICIAN: FLORESITA BROWN RESOURCE: FLORESITA BROWN REASON FOR APPOINTMENT 1. LOW BACK PAIN AND LEG PAIN HISTORY OF PRESENT ILLNESS HISTORY OF PRESENT ILLNESS: PAIN THE PATIENT DESCRIBES THE PAIN... 56 YEAR OLD FEMALE PATIENT WITH HISTORY OF CHRONIC LOW BACK PAIN. PATIENT DESCRIBES THE PAIN ACHING, BURNING, SHARP, STABBING, TENDER, SORE, AND HAVING IT ALL THE TIME WITH A PAIN SCORE OF 7-8/10. PATIENT RECEIVED A TRIGGER POINT INJECTION ON 06/10/17 FOR THE LOWER BACK AND REPORTS THAT THE PATIENT IS STARTING TO RETURN. PATIENT REPORTS NUMBNESS DOWN THE RIGHT LEG. MRS. ROSS STATES THAT SITTING INCREASES THE PAIN SIGNIFICANTLY. PATIENT REPORTS STARTING INSULIN THIS WEEK FOR HER DIABETES. PATIENT DENIES UNEXPLAINABLE WEIGHT LOSS, FEVER, CHILLS, NEW CHANGES ON HER URINARY OR BOWEL CONTROL. FALL RISK SCREENING: SCREENING :NO FALLS IN THE PAST YEAR CURRENT MEDICATIONS TAKING TIZANIDINE HCL 4 MG TABLET 1 TABLET NEEDED ORALLY 3 X A DAY TAKING FISH OIL 1000 MG CAPSULE 1 ORALLY 3 X A DAY TAKING TYLENOL EXTRA STRENGTH 500 MG TABLET 2 TABLET NEEDED ORALLY EVERY 8 HRS NEEDED FOR H/A TAKING METFORMIN HCL 1000 MG TABLET 1 TABLET WITH MEALS ORALLY TWICE A DAY TAKING NORTRIPTYLINE HCL 25 MG CAPSULE 1 CAPSULE ORALLY TWICE DAILY TAKING BACLOFEN 20 MG TABLET 1 TABLET WITH FOOD OR MILK ORALLY THREE TIMES A DAY TAKING ROPINIROLE HCL 1 MG TABLET 1 TABLET ORALLY FOUR X DAILY TAKING ZONISAMIDE 50 MG CAPSULE 1 CAP ORALLY 1 AM / 2 HS TAKING VITAMIN D 1000 UNIT TABLET 1 CAP ORALLY ONCE DAILY TAKING ROSUVASTATIN CALCIUM 40 MG TABLET 1 TABLET ORALLY ONCE A DAY TAKING POLYETHYLENE GLYCOL 3350 POWDER 17 GRAMS ORALLY DAILY TAKING SYNTHROID 75 MCG TABLET 1 TABLET ON AN EMPTY STOMACH IN THE MORNING ORALLY ONCE A DAY TAKING GLIPIZIDE 10 MG TABLET 1 TABLET ORALLY BID TAKING CREON 55510 UNIT CAPSULE DELAYED RELEASE PARTICLES ORALLY TAKING PROAIR HFA 108 (90 BASE) MCG/ACT AEROSOL SOLUTION 2 PUFFS NEEDED INHALATION EVERY 4 HRS TAKING LEVOTHYROXINE SODIUM 88 MCG TABLET 1 TABLET ON AN EMPTY STOMACH IN THE MORNING ORALLY ONCE A DAY TAKING TOUJEO SOLOSTAR 300 UNIT/ML SOLUTION PEN-INJECTOR 20 UNITS SUBCUTANEOUS DAILY NOT-TAKING JARDIANCE 25 MG TABLET 1 TABLET ORALLY ONCE A DAY NOT-TAKING LEVOTHROID 75 MCG TABLET 1 TABLET ON AN EMPTY STOMACH IN THE MORNING ORALLY ONCE A DAY NOT-TAKING ASPERCREME W/LIDOCAINE 4 % CREAM DIRECTED EXTERNALLY EVERY 4 HOURS NEEDED FOR PAIN MEDICATION LIST REVIEWED AND RECONCILED WITH THE PATIENT PAST MEDICAL HISTORY 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 HYPERLIPIDEMIA ARTHRITIS DDD/DD FRACTURE-LEFT ANKLE X 2 GRAVES DISEASE-2011 RIGHT HIP BURSITIS MRSA LEFT GROIN 2011, I AND D TYPE II DIABETES DYSTONIA RIGHT FOOT VERTIGO FIBROMYALGIA WITH LOW BACK AND NECK PAIN MUSCLE SPASMS SEES 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 SPINAL STENOSIS UPPER ABDOMINAL PAIN BILAT KIDNEYS OBSTRUCTED AND SWOLLEN ALLERGIES TRULICITY: VOMITING AND ACHES AND PAINS: ALLERGY SURGICAL HISTORY D&C 1987 LEFT GROIN ABCESS WITH CELLULITIS -I AND D/ WAS MERSA 05/24/11 RADIO-ACTIVE IODINE FOR THYROID 06/06/12 EGD- DUE TO STOMACH PAIN CT SCAN APRIL 2016 COLONOSCOPY WITH POLYPS ,REPEAT 2018 10/06/2015 SOCIAL HISTORY GENERAL: TOBACCO USE ARE YOU A:CURRENT SMOKER HOW MANY CIGARETTES A DAY DO YOU SMOKE?11-20 PATIENT COUNSELED ON THE DANGERS OF TOBACCO USE AND URGED TO QUIT:07/15/2017 ARE YOU INTERESTED IN QUITTING?NOT READY TO QUIT COUNSELED THE PATIENT ON SMOKING EFFECTS, EDUCATION [id number]/15/2017 ALCOHOL SCREENING DID YOU HAVE A DRINK CONTAINING ALCOHOL IN THE PAST YEAR?NO POINTS0 INTERPRETATIONNEGATIVE RECREATIONAL DRUG USE DRUG USE?NO CAFFEINE CAFFEINE USE?YES HOW OFTEN AND HOW MUCH? PEPSI ON OCC SEXUAL HX HAD SEX IN THE LAST 12 MONTHS (VAGINAL, ORAL, OR ANAL)?NO HAVE YOU EVER HAD AN STD?NO LMP:MEONPAUSAL OCCUPATION: DISABLED. MARITAL STATUS: SINGLE. PAIN CLINIC PFS, CLERGY, PUBLIC HEALTH REFERRALS PFS REFERRAL NEEDED?NO CLERGY REFERRAL NEEDED?NO PUBLIC HEALTH REFERRAL NEEDED?NO WAS THE PROVIDER NOTIFIED OF ANY PERTINENT INFO?NO HAS THE PATIENT BEEN EDUCATED REGARDING HIS/HER PLAN OF CARE?YES HAS THE PATIENT BEEN EDUCATED REGARDING PAIN, THE RISK FOR PAIN, THE IMPORTANCE OF EFFECTIVE PAIN MANAGEMENT, AND THE PAIN ASSESSMENT PROCESS?YES PATIENT: ____. HOSPITALIZATION/MAJOR DIAGNOSTIC PROCEDURE ABCESS LEFT LEG WAS IN [facility] FOR 2 WEEKS 05/11 REVIEW OF SYSTEMS REVIEWED BY: PROVIDER: FLORESITA BROWN MD . CONSTITUTIONAL: ANY CHANGE IN YOUR MEDICAL CONDITION? YES, BILAT KIDNEYS OBSTRUCTED AND SWOLLEN . CHILLS NO . FEVER NO . INFECTION: DO YOU HAVE NEW INFECTIONS? NO . DO YOU HAVE HISTORY OF MRSA? NO . MUSCULOSKELETAL: ANY NEW PATTERNS OF PAIN OR NUMBNESS? NO . GASTROENTEROLOGY: ANY NEW CHANGE IN BOWEL CONTROL? NO . GENITOURINARY: ANY NEW CHANGE IN BLADDER CONTROL? NO . IS THERE A CHANCE YOU COULD BE ? NO . HEMATOLOGY/LYMPH: DO YOU TAKE ANY BLOOD THINNERS? (FOR EXAMPLE- COUMADIN, PLAVIX, AGGRENOX, PLATEL, PRADAXA, OR XARELTO) NO . WHEN WAS YOUR LAST DOSE? DATE: TIME: . NEUROLOGY: HAVE YOU FALLEN IN THE PAST 6 MONTHS? NO . ANY NEW EXTREMITY NUMBNESS OR WEAKNESS? NO . CARDIOLOGY: DO YOU HAVE A PACEMAKER OR DEFIBRILLATOR? NO . RESPIRATORY: HAVE YOU BEEN SICK IN THE PAST WEEK? NO . FEVER NO . FLU LIKE SYMPTOMS? NO . COUGH NO . INTEGUMENTARY: DO YOU HAVE ANY RASHES OR OPEN SORES? NO . ALLERGIC/IMMUNO: ARE YOU ALLERGIC TO SHELLFISH OR IV DYE? NO . ANY NEW ALLERGIES? NO . PSYCHIATRIC: DO YOU HAVE THOUGHTS OF HURTING YOURSELF OR SOMEONE ELSE? NO . ARE YOU ABUSED, NEGLECTED, OR IN AN UNSAFE ENVIRONMENT? NO . ENDOCRINOLOGY: ARE YOU DIABETIC? YES . OTHER: DO YOU NEED ANY PRESCRIPTIONS? NO . IF YES, PLEASE LIST: ____ . ANY NEW PROBLEMS WITH YOUR MEDICATIONS? YES, TRULICITY MAKES PT N/V, INCOHERENT . WHEN DID YOU LAST EAT? ____ . WHEN DID YOU LAST DRINK? ____ . WHAT DID YOU LAST DRINK? ____ . NAME OF PERSON DRIVING YOU HOME? ____ . DO YOU HAVE ANY OTHER QUESTIONS OR CONCERNS NO, PT STATES SHE RECEIVED FLU VACCINE THIS SEASON 07/2017 OR 07/2017, NOT SURE EXACT DATE . VITAL SIGNS WT 108 LBS, HT 65 3/4, BMI 17.56 INDEX, BP 123/66 MM HG, HR 84 /MIN, RR 16 /MIN, TEMP 97.1 F, OXYGEN SAT % 98%, NA INITIALS SC 09:14, REVIEWED BY: EM. EXAMINATION : PATIENT IS ALERT O X 3 AND COOPERATIVE. PATIENT HAS SOME TENDERNESS IN THE LUMBAR PARASPINAL GROUP, BUT ACCORDING TO THE PATIENT ITS NOT THAT BAD. BANDS OF TISSUE, RESTRICTION OF MOVEMENT, AND PRESENCE OF TRIGGER POINTS IN THE THORACIC AND LUMBAR AREA. TENDERNESS IN THE SACROILIAC JOINT BLOCK. MRI OF THE THORACIC SPINE DONE ON 02/17/16 SHOWS MILD DEGENERATIVE CHANGES. MRI OF THE LUMBAR SPINE DONE ON 02/26/16 SHOWS DISC BULGES AT L2-L3 THROUGH L5-S1 AND CANAL STENOSIS AT L3-L4 AND L4-L5. ASSESSMENTS SACROILIITIS, NOT ELSEWHERE CLASSIFIED - M46.1 (PRIMARY) INTERVERTEBRAL DISC DISORDER WITH RADICULOPATHY OF LUMBAR REGION - M51.16 INTERVERTEBRAL DISC DISORDER WITH RADICULOPATHY OF LUMBOSACRAL REGION - M51.17 MYALGIA - M79.1 TREATMENT SACROILIITIS, NOT ELSEWHERE CLASSIFIED NOTES: WE DISCUSSED SEVERAL ISSUES WITH MRS. ROSS'S PAIN MANAGEMENT CASE. AT THIS TIME THE PATIENT STATES THAT HER PAIN IS INCREASING IN THE LOWER BACK AND IN THE LEGS. WE DISCUSSED MOVING FORWARD WITH A SACROILIAC JOINT INJECTION DUE TO THE PAIN IN THE SACROILIAC JOINT AREA. PATIENT WILL DISCUSS USING STEROIDS WITH HER DIABETES DOCTOR TO DISCUSS SUGAR LEVELS AFTER THE INJECTION. WE DISCUSSED THE RISKS, BENEFITS, AND ALTNERATIVES OF THE INJECTION AND THE PATIENT WOULD LIKE TO PROCEED. INSTRUCTIONS WERE GIVEN, QUESTIONS WERE ANSWERED, PATIENT REPORTS UNDERSTANDING AND AGREES WITH THE PLAN. I, ZANE STARR, DOCUMENTED THE ABOVE INFORMATION ACTING A SCRIBE FOR DR. BROWN. I HAVE REVIEWED THE ABOVE DOCUMENT, WRITTEN BY ZANE VAIL AND I VERIFY THAT IT IS ACCURATE. PROCEDURE CODES FA211 ESTABILISHED PATIENT [facility] CHARGE G8427 DOC MEDS VERIFIED W/PT OR RE G8730 PAIN ASSESS POS TOOL F/U PLAN DOC DISPOSITION & COMMUNICATION FOLLOW UP SIJ AFTER APPROVAL ELECTRONICALLY SIGNED BY FLORESITA BROWN MD ON 09/11/2017 AT 09:12 PM EST DISCLAIMER : THIS IS A VISIT SUMMARY EXTRACTED FROM THE [employer] CHART. IT IS NOT A COPY OF THE [employer] PROGRESS NOTE. DIEGO
== END ==
LOC: M PAIN 09:00
PROVIDERS: ATTEND Anesthesiology
DX: M46.1 Sacroiliitis, not elsewhere classified (principal); M51.16 Intervertebral disc disorders with radiculopathy, lumbar region; M51.17 Intervertebral disc disorders with radiculopathy, lumbosacral region; M79.1 Myalgia; M54.5 Low back pain; G89.29 Other chronic pain; G35 Multiple sclerosis; E05.00 Thyrotoxicosis with diffuse goiter without thyrotoxic crisis or storm; E11.21 Type 2 diabetes mellitus with diabetic nephropathy; F17.210 Nicotine dependence, cigarettes, uncomplicated; Z78.0 Asymptomatic menopausal state; Z88.8 Allergy status to other drugs, medicaments and biological substances; Z79.4 Long term (current) use of insulin; Z79.899 Other long term (current) drug therapy

== ENCOUNTER → 2017-09-23 | Outpatient (CLI) | payer MEDICARE, MEDICAID ==
[2017-09-23 08:49] LABS: BASO # 0.1 10^3/uL (0.0-0.2); BASO % 0.7 % (0.0-1.0); EOS # 0.3 10^3/uL (0.0-0.50); EOS % 2.2 % (0.0-3.0); IMMATURE GRANULOCYTE % 0.3 % (0-0); MEAN CORPUSCULAR HGB CONC 32.4 g/dl (32.0-36.5); MONO # 0.8 10^3/uL (0.0-0.8); MONO % 6.8 % (0.0-5.0); NEUTROPHILS # 7.4 10^3/uL (1.8-7.7); PLATELET COUNT, AUTOMATED 335 10^3/uL (150-450); RED CELL DISTRIBUTION WIDTH 13.9 % (11.5-14.5); WHITE BLOOD COUNT 11.5 10^3/uL (4.0-10.0)
== END ==
LOC: M LAB 07:54
PROVIDERS: ATTEND Physician Assistant Medical
DX: E11.9 Type 2 diabetes mellitus without complications (principal); Z79.899 Other long term (current) drug therapy; E05.90 Thyrotoxicosis, unspecified without thyrotoxic crisis or storm

== ENCOUNTER 2017-10-10 18:12 | Emergency (ER) | payer MEDICARE, MEDICAID ==
[~2017-10-10] VITALS: Ht 167.6 cm; Wt 54.5 kg
[2017-10-10] MEDS ORDERED: TOUJ1.2I SQ (18:23)
[2017-10-10] MEDS ORDERED: PAME50CA PO (18:23)
[2017-10-10] MEDS ORDERED: PROAAER10 INH (18:23)
--- NOTE | 2017-10-10 19:07 | REP ---
Left forearm: Two views: History: Trauma. Findings: AP and lateral views of the left forearm demonstrate soft-tissue swelling and mid shaft level dorsally. No fracture or subluxation is seen. No opaque foreign body noted. Impression: Soft-tissue swelling. No fracture seen. Signed by Everardo Bales MD 10/10/2017 07:57 P
[2017-10-10] MEDS ORDERED: ADACEL/BOOSTRIX VACCINE (DIPHTH/PERTUSS/ACELL/TETANUS)0.5ML SYR (90715) IM ONE (19:15)
[2017-10-10 19:33] VITALS: BP 130/80
== END 2017-10-10 19:34 | disposition home or self-care (01) ==
LOC: M ED 18:12
DX: S51.811A Laceration without foreign body of right forearm, initial encounter (principal); S50.11XA Contusion of right forearm, initial encounter; Y08.09XA Assault by strike by other specified type of sport equipment, initial encounter; Y92.099 Unspecified place in other non-institutional residence as the place of occurrence of the external cause; Y93.89 Activity, other specified; Y99.9 Unspecified external cause status

== ENCOUNTER → 2017-10-27 | Outpatient (CLI) | payer MEDICARE, MEDICAID ==
[~2017-10-27] MED LIST changes: +PAME50CA PO; +PROAAER10 INH; +TOUJ1.2I SQ
--- NOTE | 2017-10-27 10:41 | REPMRS ---
Patient History The patient states she had a clinical breast exam in Patient is postmenopausal and is nulliparous. No known family history of cancer. Digital Woman Screen Mammo: October 27, 2017 - Exam #: [id number] Bilateral CC and MLO view(s) were taken. Technologist: Consuelo Pinto, Technologist Prior study comparison: September 03, 2016, digital woman screen mammo performed at [facility]. August 07, 2015, digital woman screen mammo performed at [facility]. July 23, 2014, digital woman screen mammo performed at [facility]. FINDINGS: The breast tissue is heterogeneously dense. This may lower the sensitivity of mammography. There is a moderate amount of heterogeneously dense fibroglandular tissue which is fairly symmetric. There is no interval development of dominant mass, architectural distortion, or clustered microcalcification typical of malignancy. There has been no change in the appearance of the mammogram from the prior studies. ASSESSMENT: BI-RADS/ACR category 1 mammogram. Negative. Recommendation Routine screening mammogram of both breasts in 1 year (for women over age 40). This mammogram was interpreted with the aid of an FDA-approved computer-aided dectection system. Electronically Signed By: Zaire Bales MD 10/27/17 0883
--- NOTE | 2017-10-28 10:30 | DEXA ---
AP SPINE L1 - L4 1.436 2.0 2.8 LT FEMUR TOTAL 1.085 0.6 1.3 RT FEMUR TOTAL 1.039 0.2 0.9 TOTAL BODY TOTAL OTHER COMMENTS: Normal bone densitometry of the spine and hips. The density of the spine has decreased 9.7% since 02/2009. The density of the left hip has decreased 17.6% since 02/2009. The density of the right hip has decreased 10.7% since 02/2009. FOLLOW-UP: Recommendation for the next bone density exam: 5 years. DIEGO
== END ==
LOC: M WHC 09:05
PROVIDERS: ATTEND Nurse Practitioner Family
DX: Z12.31 Encounter for screening mammogram for malignant neoplasm of breast (principal); N95.9 Unspecified menopausal and perimenopausal disorder; Z78.0 Asymptomatic menopausal state; R92.8 Other abnormal and inconclusive findings on diagnostic imaging of breast
CPT/HCPCS: 77080; G0202

== ENCOUNTER → 2018-01-06 | Outpatient (CLI) | payer MEDICARE, MEDICAID | LOC: M PAIN 14:15 | DX: G89.29 Other chronic pain (principal); M79.1 Myalgia; M54.5 Low back pain; G43.909 Migraine, unspecified, not intractable, without status migrainosus; G37.9 Demyelinating disease of central nervous system, unspecified; E78.5 Hyperlipidemia, unspecified; E11.40 Type 2 diabetes mellitus with diabetic neuropathy, unspecified; H81.90 Unspecified disorder of vestibular function, unspecified ear; G35 Multiple sclerosis; I73.00 Raynaud's syndrome without gangrene; F17.200 Nicotine dependence, unspecified, uncomplicated; Z79.4 Long term (current) use of insulin; Z79.899 Other long term (current) drug therapy; Z88.8 Allergy status to other drugs, medicaments and biological substances | CPT/HCPCS: G0463 ==

== ENCOUNTER → 2018-01-11 | Outpatient (CLI) | payer MEDICARE, MEDICAID ==
[2018-01-11 09:21] LABS: BASO # 0.1 10^3/uL (0.0-0.2); BASO % 0.5 % (0.0-1.0); EOS # 0.2 10^3/uL (0.0-0.50); EOS % 1.3 % (0.0-3.0); HEMATOCRIT 47.4 % (36.0-47.0); HEMOGLOBIN 16.2 g/dl (12.0-16.0); IMMATURE GRANULOCYTE % 0.2 % (0-3.0); LYMPH # 3.1 10^3/uL (1.5-4.5); LYMPH % 19.7 % (24.0-44.0); MEAN CORPUSCULAR HEMOGLOBIN 31.8 pg (27.0-33.0); MEAN CORPUSCULAR HGB CONC 34.2 g/dl (32.0-36.5); MEAN CORPUSCULAR VOLUME 92.9 fl (80.0-96.0); MONO # 0.9 10^3/uL (0.0-0.8); MONO % 5.8 % (0.0-5.0); NEUTROPHILS # 11.3 10^3/uL (1.8-7.7); NEUTROPHILS % 72.5 % (36.0-66.0); PLATELET COUNT, AUTOMATED 296 10^3/uL (150-450); RED CELL DISTRIBUTION WIDTH 12.6 % (11.5-14.5); WHITE BLOOD COUNT 15.6 10^3/uL (4.0-10.0)
[2018-01-11 10:12] LABS: ALBUMIN/GLOBULIN RATIO 1.33 (1.00-1.93); ALKALINE PHOSPHATASE 113 U/L (45-117); ALT/SGPT 23 U/L (12-78); ANION GAP 8 MEQ/L (8-16); AST/SGOT 21 U/L (7-37); BILIRUBIN,TOTAL 0.5 MG/DL (0.2-1.0); BLOOD UREA NITROGEN 14 MG/DL (7-18); CARBON DIOXIDE LEVEL 27 MEQ/L (21-32); CHLORIDE LEVEL 102 MEQ/L (98-107); CHOLESTEROL LEVEL 190 MG/DL (<200); CHOLESTEROL RISK RATIO 3.166 (<5); CREATININE FOR GFR 0.93 MG/DL (0.55-1.30); FREE T4 1.22 NG/DL (0.76-1.46); GLOMERULAR FILTRATION RATE > 60.0 (>51); GLUCOSE, FASTING 250 MG/DL (70-100); HDL CHOLESTEROL 60 MG/DL (>40); LDL CHOLESTEROL 99.8 MG/DL (<100); NON-HDL-C 130 MG/DL; SODIUM LEVEL 137 MEQ/L (136-145); TRIGLYCERIDES LEVEL 151 MG/DL (<150)
[2018-01-11 10:17] LABS: MALB URINE SIEMENS 58.8 MG/L
[2018-01-11 10:37] LABS: HEP C VIRUS AB SCREEN MEDICARE 0.1 INDEX (<0.8)
[2018-01-11 10:41] LABS: ESTIMATED AVERAGE GLUCOSE 229 MG/DL (60-110); HEMOGLOBIN A1c 9.6 %
[2018-01-11 12:38] LABS: TOTAL 25(OH) VITAMIN D 22.6 NG/ML (30.0-100.0)
== END ==
LOC: M LAB 08:10
DX: E78.5 Hyperlipidemia, unspecified (principal); E11.8 Type 2 diabetes mellitus with unspecified complications; E05.00 Thyrotoxicosis with diffuse goiter without thyrotoxic crisis or storm; Z11.59 Encounter for screening for other viral diseases; E55.9 Vitamin D deficiency, unspecified
CPT/HCPCS: 84443

== ENCOUNTER → 2018-01-26 | Outpatient (CLI) | payer MEDICARE, MEDICAID ==
[~2018-01-26] MED LIST changes: -ACET50TA PO; -ACET65TA OR; -AMMO12CR4 EX; -ATOR80TA59 PO; -BACL1TAB9 PO; +BUPIVACAINE HCL 0.25% 10 ML VIAL As Ordered; +BUPIVACAINE HCL 0.25% 30 ML VIAL As Ordered; -CRES40TA PO; -DOXYCYCLINE PO; -INVO100T PO; -INVO300T PO; -LEVO88TA3 PO; -METF10004 PO; -NIFE30TA66 PO; -NORT25CA2 PO; -NYAM10003 EX; -OMEG100011 PO; -OMEGA 3 PO; -PAME50CA PO; -PROAAER10 INH; -ROPI1TAB PO; -SIMV20TA2 PO; -SIMV40TA2 OR; -TIZA4CAP3 PO; -TOUJ1.2I SQ; -TYLE500T78 PO; -VITA1CAP40 PO; -VITA1CAP7 PO; -ZONI25CA2 PO; -ZONI50CA3 PO; -norco PO
== END ==
LOC: M PAIN 10:30
DX: G89.29 Other chronic pain (principal); M79.1 Myalgia; E10.9 Type 1 diabetes mellitus without complications; E05.00 Thyrotoxicosis with diffuse goiter without thyrotoxic crisis or storm; G35 Multiple sclerosis; E78.5 Hyperlipidemia, unspecified; F17.210 Nicotine dependence, cigarettes, uncomplicated; Z79.4 Long term (current) use of insulin; Z79.899 Other long term (current) drug therapy; Z88.8 Allergy status to other drugs, medicaments and biological substances; Z86.14 Personal history of Methicillin resistant Staphylococcus aureus infection; Z86.79 Personal history of other diseases of the circulatory system
CPT/HCPCS: 20552

== ENCOUNTER → 2018-02-03 | Outpatient (REF) | payer MEDICARE, MEDICAID ==
[2018-02-03 11:54] LABS: BASO # 0.1 10^3/uL (0.0-0.2); BASO % 0.6 % (0.0-1.0); EOS # 0.2 10^3/uL (0.0-0.50); EOS % 1.3 % (0.0-3.0); HEMATOCRIT 48.4 % (36.0-47.0); HEMOGLOBIN 16.3 g/dl (12.0-15.5); IMMATURE GRANULOCYTE % 0.4 % (0-3.0); LYMPH # 2.8 10^3/uL (1.5-4.5); LYMPH % 20.4 % (24.0-44.0); MEAN CORPUSCULAR HEMOGLOBIN 31.7 pg (27.0-33.0); MEAN CORPUSCULAR HGB CONC 33.7 g/dl (32.0-36.5); MONO # 0.9 10^3/uL (0.0-0.8); MONO % 6.3 % (0.0-5.0); NEUTROPHILS # 9.8 10^3/uL (1.8-7.7); PLATELET COUNT, AUTOMATED 316 10^3/uL (150-450); RED BLOOD COUNT 5.15 10^6/uL (4.00-5.40); RED CELL DISTRIBUTION WIDTH 13.2 % (11.5-14.5); WHITE BLOOD COUNT 13.7 10^3/uL (4.0-10.0)
== END ==
LOC: M SFHCPLAZ 10:12
DX: D72.829 Elevated white blood cell count, unspecified (principal)
CPT/HCPCS: 85025

== ENCOUNTER → 2018-02-23 | Outpatient (CLI) | payer MEDICARE, MEDICAID | LOC: M PAIN 09:30 | DX: M79.1 Myalgia (principal); E10.8 Type 1 diabetes mellitus with unspecified complications; E78.5 Hyperlipidemia, unspecified; G35 Multiple sclerosis; E05.00 Thyrotoxicosis with diffuse goiter without thyrotoxic crisis or storm; E55.9 Vitamin D deficiency, unspecified; E03.9 Hypothyroidism, unspecified; Z79.899 Other long term (current) drug therapy; Z79.4 Long term (current) use of insulin; F17.210 Nicotine dependence, cigarettes, uncomplicated; Z88.8 Allergy status to other drugs, medicaments and biological substances | CPT/HCPCS: G0463 ==

== ENCOUNTER → 2018-03-18 | Outpatient (CLI) | payer MEDICARE, MEDICAID ==
[2018-03-18 10:19] LABS: FREE T4 1.27 NG/DL (0.76-1.46)
== END ==
LOC: M LAB 08:43
DX: E89.0 Postprocedural hypothyroidism (principal)
CPT/HCPCS: 84443

== ENCOUNTER → 2018-03-20 | Outpatient (REF) | payer MEDICARE, MEDICAID ==
[2018-03-20 13:10] LABS: CARBOXYHEMOGLOBIN 7.7 % (0.0-1.5)
[2018-03-20 13:50] LABS: SLIDE REVIEW Report; SOURCE PERIPHERAL SMEAR
[2018-03-21 08:06] LABS: ERYTHROPOIETIN 5.7 mIU/mL (2.6-18.5)
== END ==
LOC: M LAB REF 12:21
DX: D75.1 Secondary polycythemia (principal)
CPT/HCPCS: 82375

== ENCOUNTER → 2018-05-04 | Outpatient (CLI) | payer MEDICARE, MEDICAID ==
[2018-05-04 10:19] LABS: MALB URINE SIEMENS 28.6 MG/L; MAU/CREAT RATIO 27.5 MCG/MG (0.0-30.0)
== END ==
LOC: M LAB 08:53
DX: E10.9 Type 1 diabetes mellitus without complications (principal)
CPT/HCPCS: 82043

== ENCOUNTER → 2018-05-10 | Outpatient (CLI) | payer MEDICARE, MEDICAID | LOC: M RAD 06:21 | DX: M25.532 Pain in left wrist (principal) | CPT/HCPCS: 73110 ==

== ENCOUNTER → 2018-07-18 | Outpatient (REF) | payer MEDICARE, MEDICAID ==
[2018-07-18 14:11] LABS: RHEUMATOID FACTOR QUANT < 10.0 IU/ML (<15.0)
[2018-07-18 14:18] LABS: ERYTHROCYTE SEDIMENTATION RATE 3 mm/hr (0-30)
[2018-07-19 14:16] LABS: ANTINUCLEAR ANTIBODIES DIRECT Negative (Negative)
== END ==
LOC: M LABNEURO 13:31
DX: M25.531 Pain in right wrist (principal)
CPT/HCPCS: 36415

== ENCOUNTER → 2018-08-10 | Outpatient (REF) | payer MEDICARE, MEDICAID ==
[2018-08-10 13:41] LABS: FREE T4 1.25 NG/DL (0.76-1.46)
== END ==
LOC: M SFHCPLAZ 09:24
DX: E03.9 Hypothyroidism, unspecified (principal); Z23 Encounter for immunization
CPT/HCPCS: 84443

== ENCOUNTER 2018-10-14 20:36 | Inpatient (IN) | payer MEDICARE, MEDICAID ==
[2018-10-14 22:17] LABS: BASO # 0.1 10^3/uL (0.0-0.2); BASO % 0.3 % (0.0-1.0); EOS % 0.1 % (0.0-3.0); HEMATOCRIT 41.3 % (36.0-47.0); HEMOGLOBIN 14.1 g/dl (12.0-15.5); IMMATURE GRANULOCYTE % 0.4 % (0-3.0); LYMPH # 2.5 10^3/uL (1.5-4.5); LYMPH % 17.3 % (24.0-44.0); MEAN CORPUSCULAR HEMOGLOBIN 31.1 pg (27.0-33.0); MEAN CORPUSCULAR HGB CONC 34.1 g/dl (32.0-36.5); MEAN CORPUSCULAR VOLUME 91.2 fl (80.0-96.0); MONO # 1.3 10^3/uL (0.0-0.8); MONO % 8.8 % (0.0-5.0); NEUTROPHILS # 10.7 10^3/uL (1.8-7.7); NEUTROPHILS % 73.1 % (36.0-66.0); PLATELET COUNT, AUTOMATED 330 10^3/uL (150-450); RED BLOOD COUNT 4.53 10^6/uL (4.00-5.40); RED CELL DISTRIBUTION WIDTH 13.2 % (11.5-14.5); WHITE BLOOD COUNT 14.6 10^3/uL (4.0-10.0)
[2018-10-14] MEDS: HYDROMORPHONE HCL 0.5 MG/ 0.5 ML SYRINGE (J1170 PER 1) IV (22:17)
[2018-10-14] MEDS: NS 1,000 ML IV ×2 (22:18→23:42)
[2018-10-14 22:39] LABS: BEDSIDE GLUCOSE 184 MG/DL (70-105)
[2018-10-14 22:41] LABS: ALBUMIN 2.9 GM/DL (3.2-5.2); ALBUMIN/GLOBULIN RATIO 0.69 (1.00-1.93); ALKALINE PHOSPHATASE 125 U/L (45-117); ALT/SGPT 11 U/L (12-78); ANION GAP 10 MEQ/L (8-16); AST/SGOT 14 U/L (7-37); BILIRUBIN,DIRECT 0.2 MG/DL (0.0-0.2); BILIRUBIN,TOTAL 0.5 MG/DL (0.2-1.0); BLOOD UREA NITROGEN 13 MG/DL (7-18); CALCIUM LEVEL 8.9 MG/DL (8.5-10.1); CARBON DIOXIDE LEVEL 25 MEQ/L (21-32); CHLORIDE LEVEL 99 MEQ/L (98-107); CREATININE FOR GFR 1.68 MG/DL (0.55-1.30); GLOMERULAR FILTRATION RATE 33.6 (>51); GLUCOSE, FASTING 194 MG/DL (70-100); LIPASE 71 U/L (73-393); POTASSIUM SERUM 4.1 MEQ/L (3.5-5.1); SODIUM LEVEL 134 MEQ/L (136-145); TOTAL PROTEIN 7.1 GM/DL (6.4-8.2)
[2018-10-15 00:09] LABS: KETONE, URINE AUTO RFX 1+ mg/dL (NEGATIVE); NITRITE, URINE AUTO RFX NEGATIVE (NEGATIVE); RBC, URINE AUTO RFX 66 /HPF (0-3); SPECIFIC GRAVITY UR AUTO RFX 1.016 (1.002-1.035); SQUAM EPITHELIAL CELL UR AURFX 1 /HPF (0-6)
[2018-10-15] MEDS: HYDROMORPHONE HCL 0.5 MG/ 0.5 ML SYRINGE (J1170 PER 1) IV ×3 (00:15→17:28)
[2018-10-15 00:38] LABS: LEUKOCYTE ESTERASE UR AUTO RFX 2+ (NEGATIVE); WBC, URINE AUTO RFX TNTC /HPF (0-3)
[2018-10-15] MEDS: cefTRIAXone SOD 1 GM in D5W MINI-BAG PLUS 50 ML IV (01:00)
[2018-10-15] MEDS: ACETAMINOPHEN TAB 650MG DOSE (2X325MG) PO (04:04)
[2018-10-15] MEDS: NS 1,000 ML IV ×3 (04:05→18:44)
[2018-10-15] MEDS: PIPERACILLIN/TAZOBACTAM SOD 3.375 GM in D5W MINI-BAG PLUS 50 ML IV ×4 (05:31→23:56)
[2018-10-15] MEDS: HEPARIN SOD (PORCINE) 5000 UNITS/ML VIAL SC ×3 (05:32→20:43)
[2018-10-15 07:15] LABS: LACTIC ACID SEPSIS PROTOCOL 0.7 MMOL/L (0.4-2.0)
[2018-10-15 07:59] LABS: BEDSIDE GLUCOSE 163 MG/DL (70-105)
[2018-10-15] MEDS ORDERED: GLUCOSE 4 GM CHEW TABLET PO (08:00)
[2018-10-15] MEDS ORDERED: DEXTROSE 50% 50 ML SYRINGE IV (08:00)
[2018-10-15] MEDS ORDERED: ALBUTEROL 90 MCG/ACT 8GM HFA INHALER INH (08:00)
[2018-10-15] MEDS ORDERED: GLUCAGON FOR INJ 1 MG VIAL (J1610) SC (08:00)
[2018-10-15] MEDS: LEVOTHYROXINE 100MCG TABLET (0.1MG) PO (08:58)
[2018-10-15] MEDS: NORTRIPTYLINE 25 MG CAP PO ×2 (09:05→20:41)
[2018-10-15] MEDS: ZONISAMIDE 50 MG CAP (ZONEGRAN) PO (09:05)
[2018-10-15] MEDS: OMEGA-3 1000MG CAPSULE PO ×2 (09:05→20:42)
[2018-10-15] MEDS: VITAMIN D 1,000 INTERNATIONAL UNITS TABLET PO (09:05)
[2018-10-15] MEDS: rOPINIRole 1MG TAB PO ×3 (09:05→20:41)
[2018-10-15] MEDS: BACLOFEN 10 MG TAB PO ×3 (09:05→20:41)
[2018-10-15] MEDS: LEVEMIR (INSULIN DETEMIR) 1 UNITS/0.01ML SC (09:05)
[2018-10-15] MEDS: LIDOCAINE 1% MDV 20ML VIAL As Ordered (11:22)
[2018-10-15] MEDS: LIDOCAINE 2% 5ML JELLY UROJET As Ordered (11:22)
[2018-10-15] MEDS ORDERED: LIDOCAINE 2% INJ 100 MG/5 ML SDV (FOR ANES.) As Ordered (11:28)
[2018-10-15] MEDS ORDERED: MIDAZOLAM INJ 2 MG/2 ML VIAL (J2250) As Ordered (11:28)
[2018-10-15] MEDS ORDERED: PROPOFOL 200 MG/20 ML VIAL As Ordered (11:28)
[2018-10-15] MEDS ORDERED: fentaNYL 100 MCG/2 ML INJECTION (J3010) As Ordered (11:29)
[2018-10-15] MEDS ORDERED: ZOSYN 3.375 GM VIAL (J2543) As Ordered (11:39)
[2018-10-15] MEDS: CONRAY-60 60% 50ML VIAL (Q9961) As Ordered (12:01)
[2018-10-15] MEDS ORDERED: dexameTHASONE 4 MG/ML 1ML VIAL (J1100) As Ordered (12:04)
[2018-10-15] MEDS ORDERED: ePHEDrine SULFATE 25 MG/5 ML(5MG/ML) SYRINGE As Ordered (12:04)
[2018-10-15] MEDS ORDERED: ONDANSETRON 4MG/2ML VIAL (J2405) As Ordered (12:04)
[2018-10-15] MEDS: LR 1,000 ML IV (12:17)
[2018-10-15] MEDS ORDERED: fentaNYL 100 MCG/2 ML INJECTION (J3010) IV (12:30)
[2018-10-15] MEDS ORDERED: METOCLOPRAMIDE INJ 10MG/2ML VIAL (J2765) IV (12:30)
[2018-10-15] MEDS ORDERED: ONDANSETRON 4MG/2ML VIAL (J2405) IV (12:30)
[2018-10-15] MEDS ORDERED: MEPERIDINE INJ 25 MG/ML VIAL (J2175) IV (12:30)
[2018-10-15 12:45] LABS: BEDSIDE GLUCOSE 124 MG/DL (70-105)
[2018-10-15] MEDS ORDERED: PERCOCET 5MG/325MG TAB As Ordered (12:49)
[2018-10-15] MEDS: PERCOCET 5MG/325MG TAB PO (12:51)
[2018-10-15] MEDS: HumaLOG INSULIN (NovoLOG) PER UNIT SC ×3 (13:18→20:43)
[2018-10-15 14:58] LABS: ANION GAP 9 MEQ/L (8-16); BLOOD UREA NITROGEN 11 MG/DL (7-18); CALCIUM LEVEL 8.7 MG/DL (8.5-10.1); CARBON DIOXIDE LEVEL 24 MEQ/L (21-32); CHLORIDE LEVEL 106 MEQ/L (98-107); CREATININE FOR GFR 1.67 MG/DL (0.55-1.30); GLOMERULAR FILTRATION RATE 33.8 (>51); GLUCOSE, FASTING 105 MG/DL (70-100); POTASSIUM SERUM 3.5 MEQ/L (3.5-5.1); SODIUM LEVEL 139 MEQ/L (136-145)
[2018-10-15 15:06] LABS: HEMATOCRIT 36.2 % (36.0-47.0); HEMOGLOBIN 12.2 g/dl (12.0-15.5); MEAN CORPUSCULAR HEMOGLOBIN 31.3 pg (27.0-33.0); MEAN CORPUSCULAR HGB CONC 33.7 g/dl (32.0-36.5); MEAN CORPUSCULAR VOLUME 92.8 fl (80.0-96.0); PLATELET COUNT, AUTOMATED 336 10^3/uL (150-450); RED CELL DISTRIBUTION WIDTH 13.3 % (11.5-14.5); WHITE BLOOD COUNT 14.2 10^3/uL (4.0-10.0)
[2018-10-15 17:20] LABS: BEDSIDE GLUCOSE 272 MG/DL (70-105)
[2018-10-15] MEDS: ONDANSETRON 4 MG TAB (S0181) PO (18:36)
[2018-10-15] MEDS: PHENAZOPYRIDINE 100 MG TAB PO (19:32)
[2018-10-15] MEDS: ROSUVASTATIN 10 MG TAB (CRESTOR) PO (20:41)
[2018-10-15 20:45] LABS: BEDSIDE GLUCOSE 232 MG/DL (70-105)
[2018-10-15] MEDS: ZONISAMIDE 100 MG CAP (ZONEGRAN) PO (20:57)
[2018-10-16 02:12] LABS: BEDSIDE GLUCOSE 212 MG/DL (70-105)
[2018-10-16] MEDS: PIPERACILLIN/TAZOBACTAM SOD 3.375 GM in D5W MINI-BAG PLUS 50 ML IV ×4 (05:08→23:17)
[2018-10-16] MEDS: NS 1,000 ML IV (05:08)
[2018-10-16] MEDS: HEPARIN SOD (PORCINE) 5000 UNITS/ML VIAL SC ×3 (05:09→21:30)
[2018-10-16] MEDS: LEVOTHYROXINE 100MCG TABLET (0.1MG) PO (05:09)
[2018-10-16 06:10] LABS: BASO % 0.1 % (0.0-1.0); HEMATOCRIT 38.1 % (36.0-47.0); HEMOGLOBIN 12.6 g/dl (12.0-15.5); IMMATURE GRANULOCYTE % 0.8 % (0-3.0); LYMPH # 1.4 10^3/uL (1.5-4.5); MEAN CORPUSCULAR HEMOGLOBIN 30.7 pg (27.0-33.0); MEAN CORPUSCULAR HGB CONC 33.1 g/dl (32.0-36.5); MEAN CORPUSCULAR VOLUME 92.7 fl (80.0-96.0); MONO # 0.9 10^3/uL (0.0-0.8); MONO % 5.7 % (0.0-5.0); NEUTROPHILS # 13.2 10^3/uL (1.8-7.7); NEUTROPHILS % 84.4 % (36.0-66.0); PLATELET COUNT, AUTOMATED 356 10^3/uL (150-450); RED BLOOD COUNT 4.11 10^6/uL (4.00-5.40); RED CELL DISTRIBUTION WIDTH 13.3 % (11.5-14.5); WHITE BLOOD COUNT 15.7 10^3/uL (4.0-10.0)
[2018-10-16 06:36] LABS: ANION GAP 9 MEQ/L (8-16); BLOOD UREA NITROGEN 14 MG/DL (7-18); CALCIUM LEVEL 8.9 MG/DL (8.5-10.1); CARBON DIOXIDE LEVEL 23 MEQ/L (21-32); CHLORIDE LEVEL 107 MEQ/L (98-107); CREATININE FOR GFR 1.72 MG/DL (0.55-1.30); GLOMERULAR FILTRATION RATE 32.7 (>51); GLUCOSE, FASTING 251 MG/DL (70-100); POTASSIUM SERUM 4.5 MEQ/L (3.5-5.1); SODIUM LEVEL 139 MEQ/L (136-145)
[2018-10-16] MEDS: HumaLOG INSULIN (NovoLOG) PER UNIT SC ×4 (08:02→21:00)
[2018-10-16] MEDS: rOPINIRole 1MG TAB PO ×3 (08:03→21:28)
[2018-10-16] MEDS: VITAMIN D 1,000 INTERNATIONAL UNITS TABLET PO (08:03)
[2018-10-16] MEDS: OMEGA-3 1000MG CAPSULE PO ×2 (08:03→21:26)
[2018-10-16] MEDS: ACETAMINOPHEN TAB 650MG DOSE (2X325MG) PO (08:03)
[2018-10-16] MEDS: LEVEMIR (INSULIN DETEMIR) 1 UNITS/0.01ML SC (08:03)
[2018-10-16] MEDS: BACLOFEN 10 MG TAB PO ×3 (08:03→21:26)
[2018-10-16] MEDS: NORTRIPTYLINE 25 MG CAP PO ×2 (08:03→20:51)
[2018-10-16] MEDS: ZONISAMIDE 50 MG CAP (ZONEGRAN) PO (08:03)
[2018-10-16 11:25] LABS: BEDSIDE GLUCOSE 255 MG/DL (70-105)
[2018-10-16] MEDS: ONDANSETRON 4 MG TAB (S0181) PO ×2 (12:25→21:28)
[2018-10-16 17:06] LABS: BEDSIDE GLUCOSE 118 MG/DL (70-105)
[2018-10-16 20:09] LABS: BEDSIDE GLUCOSE 150 MG/DL (70-105)
[2018-10-16] MEDS ORDERED: HEPARIN SOD (PORCINE) 5000 UNITS/ML VIAL As Ordered (20:41)
[2018-10-16] MEDS: PHENAZOPYRIDINE 100 MG TAB PO (20:50)
[2018-10-16] MEDS: PERCOCET 5MG/325MG TAB PO (20:51)
[2018-10-16] MEDS: ROSUVASTATIN 10 MG TAB (CRESTOR) PO (21:27)
[2018-10-16] MEDS: ZONISAMIDE 100 MG CAP (ZONEGRAN) PO (21:28)
[2018-10-17] MEDS: LEVOTHYROXINE 100MCG TABLET (0.1MG) PO (05:56)
[2018-10-17] MEDS: PERCOCET 5MG/325MG TAB PO (05:57)
[2018-10-17] MEDS: HEPARIN SOD (PORCINE) 5000 UNITS/ML VIAL SC (05:57)
[2018-10-17] MEDS: PIPERACILLIN/TAZOBACTAM SOD 3.375 GM in D5W MINI-BAG PLUS 50 ML IV (06:18)
[2018-10-17 06:48] LABS: HEMATOCRIT 35.8 % (36.0-47.0); HEMOGLOBIN 11.8 g/dl (12.0-15.5); MEAN CORPUSCULAR VOLUME 91.1 fl (80.0-96.0); RED BLOOD COUNT 3.93 10^6/uL (4.00-5.40); RED CELL DISTRIBUTION WIDTH 13.6 % (11.5-14.5); WHITE BLOOD COUNT 12.7 10^3/uL (4.0-10.0)
[2018-10-17 06:49] LABS: BASO % 0.3 % (0.0-1.0); EOS % 0.2 % (0.0-3.0); IMMATURE GRANULOCYTE % 0.4 % (0-3.0); LYMPH % 23.9 % (24.0-44.0); MONO # 1.3 10^3/uL (0.0-0.8); MONO % 10.6 % (0.0-5.0); NEUTROPHILS # 8.2 10^3/uL (1.8-7.7); NEUTROPHILS % 64.6 % (36.0-66.0); PLATELET COUNT, AUTOMATED 370 10^3/uL (150-450)
[2018-10-17 07:12] LABS: ANION GAP 8 MEQ/L (8-16); BLOOD UREA NITROGEN 17 MG/DL (7-18); CALCIUM LEVEL 8.6 MG/DL (8.5-10.1); CARBON DIOXIDE LEVEL 24 MEQ/L (21-32); CHLORIDE LEVEL 108 MEQ/L (98-107); CREATININE FOR GFR 1.79 MG/DL (0.55-1.30); GLOMERULAR FILTRATION RATE 31.2 (>51); GLUCOSE, FASTING 151 MG/DL (70-100); POTASSIUM SERUM 4.3 MEQ/L (3.5-5.1); SODIUM LEVEL 140 MEQ/L (136-145)
[2018-10-17] MEDS: LEVEMIR (INSULIN DETEMIR) 1 UNITS/0.01ML SC (08:33)
[2018-10-17] MEDS: ZONISAMIDE 50 MG CAP (ZONEGRAN) PO (08:34)
[2018-10-17] MEDS: rOPINIRole 1MG TAB PO (08:34)
[2018-10-17] MEDS: HumaLOG INSULIN (NovoLOG) PER UNIT SC (08:34)
[2018-10-17] MEDS: OMEGA-3 1000MG CAPSULE PO (08:34)
[2018-10-17] MEDS: BACLOFEN 10 MG TAB PO (08:34)
[2018-10-17] MEDS: VITAMIN D 1,000 INTERNATIONAL UNITS TABLET PO (08:34)
[2018-10-17] MEDS: NORTRIPTYLINE 25 MG CAP PO (08:35)
== END 2018-10-17 11:00 | disposition home or self-care (01) | DRG 661 ==
LOC: M ED INP 10-15 01:10 → M ED 20:36 → M MS5PR 10-15 03:33
PROC: 0T778DZ Dilation of Left Ureter with Intraluminal Device, Via Natural or Artificial Opening Endoscopic (ICD-10-PCS; principal; 2018-10-15 11:04)
DX: N13.6 Pyonephrosis (principal); N17.9 Acute kidney failure, unspecified; E10.22 Type 1 diabetes mellitus with diabetic chronic kidney disease; I12.9 Hypertensive chronic kidney disease with stage 1 through stage 4 chronic kidney disease, or unspecified chronic kidney disease; E03.9 Hypothyroidism, unspecified; E78.5 Hyperlipidemia, unspecified; N18.9 Chronic kidney disease, unspecified; G25.81 Restless legs syndrome; F39 Unspecified mood [affective] disorder; Z79.4 Long term (current) use of insulin; Z79.899 Other long term (current) drug therapy; Z88.6 Allergy status to analgesic agent; Z88.8 Allergy status to other drugs, medicaments and biological substances; Z87.891 Personal history of nicotine dependence

== ENCOUNTER → 2018-10-26 | Outpatient (REF) | payer MEDICARE, MEDICAID ==
[~2018-10-26] MED LIST changes: +ACET50TA PO; +ACET65TA OR; +AMMO12CR4 EX; +ATOR80TA59 PO; +BACL1TAB9 PO; -BUPIVACAINE HCL 0.25% 10 ML VIAL As Ordered; -BUPIVACAINE HCL 0.25% 30 ML VIAL As Ordered; +CRES40TA PO; +DOXYCYCLINE PO; +HUMA100I5 SC; +INVO100T PO; +INVO300T PO; +KEFL500C17 PO; +LEVO88TA3 PO; +LISI2.5T5 PO; +METF10004 PO; +NIFE30TA50 PO; +NORT25CA2 PO; +NYAM10003 EX; +OMEG100011 PO; +OMEGA 3 PO; +OMEGCAP4 PO; +PAME50CA PO; +PERCOCET PO; +PROAAER10 INH; +ROPI1TAB PO; +SIMV20TA2 PO; +SIMV40TA2 OR; +SYNT100T PO; +TIZA4CAP PO; +TOUJ1.2I SQ; +TOUJ300I2 SC; +TYLE325T5 PO; +TYLE500T78 PO; +VITA100067 PO; +VITA1CAP7 PO; +VITA50005 PO; +ZONI25CA2 PO; +ZONI50CA3 PO; +norco PO
[2018-10-26 16:06] LABS: BASO # 0.1 10^3/uL (0.0-0.2); BASO % 0.5 % (0.0-1.0); EOS # 0.3 10^3/uL (0.0-0.50); EOS % 1.7 % (0.0-3.0); HEMATOCRIT 42.1 % (36.0-47.0); HEMOGLOBIN 13.5 g/dl (12.0-15.5); LYMPH # 3.2 10^3/uL (1.5-4.5); LYMPH % 21.4 % (24.0-44.0); MEAN CORPUSCULAR HEMOGLOBIN 30.1 pg (27.0-33.0); MEAN CORPUSCULAR HGB CONC 32.1 g/dl (32.0-36.5); MEAN CORPUSCULAR VOLUME 93.8 fl (80.0-96.0); MONO # 0.9 10^3/uL (0.0-0.8); MONO % 6.1 % (0.0-5.0); NEUTROPHILS # 10.5 10^3/uL (1.8-7.7); NEUTROPHILS % 69.5 % (36.0-66.0); PLATELET COUNT, AUTOMATED 553 10^3/uL (150-450); RED BLOOD COUNT 4.49 10^6/uL (4.00-5.40); WHITE BLOOD COUNT 15.1 10^3/uL (4.0-10.0)
[2018-10-26 16:28] LABS: ALBUMIN 3.1 GM/DL (3.2-5.2); BILIRUBIN,TOTAL 0.2 MG/DL (0.2-1.0); CALCIUM LEVEL 9.2 MG/DL (8.5-10.1); CREATININE FOR GFR 1.39 MG/DL (0.55-1.30); GLOMERULAR FILTRATION RATE 41.6 (>51); POTASSIUM SERUM 4.4 MEQ/L (3.5-5.1); TOTAL PROTEIN 7.8 GM/DL (6.4-8.2)
== END ==
LOC: M SFHCPLAZ 11:15
PROVIDERS: ATTEND Physician Assistant
DX: N20.0 Calculus of kidney (principal); R94.4 Abnormal results of kidney function studies
CPT/HCPCS: 36415; 80053; 85025; G0463

== ENCOUNTER 2018-12-22 15:54 | Emergency (ER) | payer MEDICARE, MEDICAID ==
[~2018-12-22] VITALS: Ht 167.6 cm; Wt 68.2 kg
--- NOTE | 2018-12-22 18:27 | REP ---
Left are extremity deep vein duplex ultrasound: The deep veins of the left upper extremity demonstrate normal compression, normal Doppler color flow and normal Doppler waveforms with respiration and augmentation at multiple levels. There is no deep vein thrombus. However, there is occlusive thrombus in the cephalic vein in the forearm. The cephalic vein is a superficial vein. Electronically Signed by Guido Elise MD 12/22/2018 06:18 P
[2018-12-22 19:24] VITALS: BP 119/58
== END 2018-12-22 19:30 | disposition home or self-care (01) ==
LOC: M ED 15:54
DX: I82.612 Acute embolism and thrombosis of superficial veins of left upper extremity (principal); E78.5 Hyperlipidemia, unspecified; M79.7 Fibromyalgia; G62.9 Polyneuropathy, unspecified; R42 Dizziness and giddiness; N18.3 Chronic kidney disease, stage 3 (moderate); E05.00 Thyrotoxicosis with diffuse goiter without thyrotoxic crisis or storm; K76.0 Fatty (change of) liver, not elsewhere classified; Z87.440 Personal history of urinary (tract) infections; Z88.8 Allergy status to other drugs, medicaments and biological substances; Z88.6 Allergy status to analgesic agent; Z79.899 Other long term (current) drug therapy; Z79.4 Long term (current) use of insulin; Z98.890 Other specified postprocedural states; Z87.891 Personal history of nicotine dependence

== ENCOUNTER → 2019-01-30 | Outpatient (CLI) | payer MEDICARE, MEDICAID ==
[~2019-01-30] MED LIST changes: -ACET50TA PO; +LISI-1046 PO; -LISI2.5T5 PO; +MAPA500T17 PO
[2019-01-30 08:37] LABS: HEMATOCRIT 47.1 % (36.0-47.0); HEMOGLOBIN 15.6 g/dl (12.0-15.5); MEAN CORPUSCULAR HEMOGLOBIN 30.1 pg (27.0-33.0); MEAN CORPUSCULAR HGB CONC 33.1 g/dl (32.0-36.5); MEAN CORPUSCULAR VOLUME 90.9 fl (80.0-96.0); PLATELET COUNT, AUTOMATED 293 10^3/uL (150-450); RED BLOOD COUNT 5.18 10^6/uL (4.00-5.40); WHITE BLOOD COUNT 10.6 10^3/uL (4.0-10.0)
[2019-01-30 09:09] LABS: ALBUMIN 3.6 GM/DL (3.2-5.2); BILIRUBIN,TOTAL 0.4 MG/DL (0.2-1.0); CALCIUM LEVEL 9.1 MG/DL (8.5-10.1); CHOLESTEROL RISK RATIO 3.588 (<5); CREATININE FOR GFR 1.14 MG/DL (0.55-1.30); FREE T4 1.52 NG/DL (0.76-1.46); GLOMERULAR FILTRATION RATE 52.3 (>51); POTASSIUM SERUM 4.4 MEQ/L (3.5-5.1); THYROID STIMULATING HORMONE 0.557 uIU/ML (0.358-3.740); TOTAL PROTEIN 6.8 GM/DL (6.4-8.2)
[2019-01-30 09:10] LABS: HEMOGLOBIN A1c 8.6 %
[2019-01-30 09:14] LABS: MALB URINE SIEMENS 11.3 MG/L; MAU/CREAT RATIO 7.6 MCG/MG (0.0-30.0)
[2019-01-30 09:55] LABS: TOTAL 25(OH) VITAMIN D 15.9 NG/ML (30.0-100.0)
== END ==
LOC: M LAB 07:28
PROVIDERS: ATTEND Physician Assistant
DX: E10.8 Type 1 diabetes mellitus with unspecified complications (principal); E55.9 Vitamin D deficiency, unspecified; E78.5 Hyperlipidemia, unspecified; Z79.899 Other long term (current) drug therapy

== ENCOUNTER → 2019-03-14 | Outpatient (CLI) | payer MEDICARE, MEDICAID ==
[~2019-03-14] MED LIST changes: -AMMO12CR4 EX; +AMMO12CR7 EX; +D-3-50003 PO; -VITA1CAP7 PO
--- NOTE | 2019-03-14 13:03 | REPMRS ---
Patient History The patient states she had a clinical breast exam in 02/2019. No known family history of cancer. Digital Woman Screen Mammo: March 14, 2019 - Exam #: [id number] Bilateral CC and MLO view(s) were taken. Technologist: Mariluz Clancy, Technologist Prior study comparison: October 27, 2017, digital woman screen mammo performed at [facility]. September 03, 2016, digital woman screen mammo performed at [facility]. August 07, 2015, digital woman screen mammo performed at [facility]. FINDINGS: The breast tissue is heterogeneously dense. This may lower the sensitivity of mammography. There is a moderate amount of heterogeneously dense fibroglandular tissue which is fairly symmetric. There is no interval development of dominant mass, architectural distortion, or clustered microcalcification typical of malignancy. There has been no change in the appearance of the mammogram from the prior studies. 3-D tomosynthesis shows no additional findings. Assessment: BI-RADS/ACR category 1 mammogram. Negative Mammogram. Recommendation Routine screening mammogram of both breasts in 1 year (for women over age 40). This patient's Lifetime Breast Cancer RIsk is estimated at 10.0 %. This mammogram was interpreted with the aid of an FDA-approved computer-aided dectection system. Electronically Signed By: Zaire Bales MD 03/14/19 [id number]
== END ==
LOC: M WHC 11:13
PROVIDERS: ATTEND Nurse Practitioner Family
DX: Z12.31 Encounter for screening mammogram for malignant neoplasm of breast (principal)
CPT/HCPCS: 77063; 77067; G0463

== ENCOUNTER → 2019-03-23 | Outpatient (CLI) | payer MEDICARE, MEDICAID ==
[2019-03-23 09:01] LABS: FREE T4 1.01 NG/DL (0.76-1.46); THYROID STIMULATING HORMONE 4.52 uIU/ML (0.358-3.740)
== END ==
LOC: M LAB 07:04
PROVIDERS: ATTEND Physician Assistant
DX: E03.9 Hypothyroidism, unspecified (principal)

== ENCOUNTER → 2019-08-15 | Outpatient (REF) | payer MEDICARE, MEDICAID ==
[2019-08-15 11:42] LABS: MALB URINE SIEMENS 7.6 MG/L; MAU/CREAT RATIO 6.9 MCG/MG (0.0-30.0)
== END ==
LOC: M LAB REF 10:12
PROVIDERS: ATTEND Nurse Practitioner Family
DX: E10.65 Type 1 diabetes mellitus with hyperglycemia (principal)

== ENCOUNTER → 2019-08-15 | Outpatient (CLI) | payer MEDICARE, MEDICAID ==
[2019-08-15 09:20] LABS: ALBUMIN 3.5 GM/DL (3.2-5.2); BILIRUBIN,TOTAL 0.4 MG/DL (0.2-1.0); CALCIUM LEVEL 8.8 MG/DL (8.5-10.1); CHOLESTEROL RISK RATIO 3.192 (<5); CREATININE FOR GFR 1.05 MG/DL (0.55-1.30); FREE T4 1.32 NG/DL (0.76-1.46); GLOMERULAR FILTRATION RATE 57.5 (>51); POTASSIUM SERUM 4.6 MEQ/L (3.5-5.1); THYROID STIMULATING HORMONE 0.853 uIU/ML (0.358-3.740); TOTAL PROTEIN 6.7 GM/DL (6.4-8.2)
[2019-08-15 09:23] LABS: MALB URINE SIEMENS 10.9 MG/L; MAU/CREAT RATIO 10.3 MCG/MG (0.0-30.0)
[2019-08-15 09:49] LABS: TOTAL 25(OH) VITAMIN D 21.9 NG/ML (30.0-100.0)
== END ==
LOC: M LAB 08:14
PROVIDERS: ATTEND Nurse Practitioner Adult Health
DX: E55.9 Vitamin D deficiency, unspecified (principal); E03.9 Hypothyroidism, unspecified; E78.5 Hyperlipidemia, unspecified; E10.65 Type 1 diabetes mellitus with hyperglycemia

== ENCOUNTER → 2019-09-21 | Outpatient (CLI) | payer MEDICARE, MEDICAID ==
--- NOTE | 2019-09-21 10:59 | REP ---
RENAL ULTRASOUND: Real-time sonographic evaluation of kidneys performed. Kidneys are normal in size and echotexture, right kidney measuring 10.9 x 4.9 x 4.6 cm and left kidney 9.5 x 3.5 x 4.9 cm. Large extrarenal pelvis on the right appears similar to the prior study of 10/14/2018. Left renal pelvis is mildly dilated, but the calyces do not appear to be significantly dilated, again, also likely representing an extrarenal pelvis. No definite echogenic stones are seen. Bilateral ureteral jets are seen in the urinary bladder with Doppler color evaluation. IMPRESSION: Large extrarenal pelvis on the right appears similar to the prior CT of 10/14/2018. There also appears to be a smaller extrarenal pelvis on the left. Bilateral ureteral jets noted in the urinary bladder. Electronically Signed by Guido Molina MD 09/24/2019 09:09 A
== END ==
LOC: M RAD 08:28
PROVIDERS: ATTEND Internal Medicine Nephrology
DX: N13.0 Hydronephrosis with ureteropelvic junction obstruction (principal); N18.2 Chronic kidney disease, stage 2 (mild)

== ENCOUNTER → 2020-02-12 | Outpatient (REF) | payer MEDICARE, MEDICAID ==
[~2020-02-12] MED LIST changes: -ROPI1TAB PO; +ROPI1TAB3 PO; +ZONI25CA13 PO; -ZONI25CA2 PO; +ZONI50CA11 PO; -ZONI50CA3 PO
[2020-02-12 10:48] LABS: BASO # 0.1 10^3/uL (0.0-0.2); BASO % 0.8 % (0.0-1.0); EOS # 0.2 10^3/uL (0.0-0.5); EOS % 1.4 % (0.0-3.0); HEMOGLOBIN 16.8 g/dl (12.0-15.5); LYMPH # 2.7 10^3/uL (1.5-5.0); LYMPH % 25.5 % (24.0-44.0); MEAN CORPUSCULAR HEMOGLOBIN 32.3 pg (27.0-33.0); MEAN CORPUSCULAR HGB CONC 32.9 g/dl (32.0-36.5); MEAN CORPUSCULAR VOLUME 98.1 fl (80.0-96.0); MONO # 0.7 10^3/uL (0.0-0.8); MONO % 6.4 % (0.0-5.0); NEUTROPHILS # 6.9 10^3/uL (1.5-8.5); NEUTROPHILS % 65.7 % (36.0-66.0); PLATELET COUNT, AUTOMATED 260 10^3/uL (150-450); WHITE BLOOD COUNT 10.6 10^3/uL (4.0-10.0)
[2020-02-12 10:56] LABS: HEMOGLOBIN A1c 9.6 %
[2020-02-12 11:08] LABS: ALBUMIN 3.7 GM/DL (3.2-5.2); BILIRUBIN,TOTAL 0.3 MG/DL (0.2-1.0); CALCIUM LEVEL 8.4 MG/DL (8.5-10.1); CHOLESTEROL RISK RATIO 3.254 (<5); CREATININE FOR GFR 1.17 MG/DL (0.55-1.30); FREE T4 1.35 NG/DL (0.76-1.46); GLOMERULAR FILTRATION RATE 50.6 (>51); POTASSIUM SERUM 4.2 MEQ/L (3.5-5.1); THYROID STIMULATING HORMONE 1.92 uIU/ML (0.358-3.740)
[2020-02-12 11:11] LABS: TOTAL 25(OH) VITAMIN D 15.8 NG/ML (30.0-100.0)
== END ==
LOC: M SFHCPLAZ 08:48
PROVIDERS: ATTEND Physician Assistant
DX: E78.5 Hyperlipidemia, unspecified (principal); E10.8 Type 1 diabetes mellitus with unspecified complications; D72.829 Elevated white blood cell count, unspecified; E55.9 Vitamin D deficiency, unspecified; E89.0 Postprocedural hypothyroidism

== ENCOUNTER → 2020-03-17 | Outpatient (CLI) | payer MEDICARE, MEDICAID ==
[~2020-03-17] MED LIST changes: -LISI-1046 PO; +LISI2.5T2 PO
--- NOTE | 2020-03-17 10:10 | REPMRS ---
Patient History The patient states she had a clinical breast exam in February 2020.No known family history of cancer. Digital Woman Screen Mammo: March 17, 2020 - Exam #: [id number] Bilateral CC and MLO view(s) were taken. Technologist: Marina Phillips, Technologist Prior study comparison: March 14, 2019, bilateral digital woman screen mammo performed at [facility]. October 27, 2017, digital woman screen mammo performed at [facility]. September 03, 2016, digital woman screen mammo performed at [facility]. FINDINGS: There are scattered fibroglandular densities. The Volpara volumetric breast density category is:B. There has been no change in the appearance of the mammogram from the prior studies. There is a mild amount of scattered fibroglandular density which is fairly symmetric. There is no interval development of dominant mass, architectural distortion, or grouped microcalcification suggestive of malignancy. 3-D tomosynthesis shows no additional findings. Assessment: BI-RADS/ACR category 1 mammogram. Negative Mammogram. Recommendation Routine screening mammogram of both breasts in 1 year (for women over age 40). This patient's Lifetime Breast Cancer Risk is estimated at 9.8 %. This mammogram was interpreted with the aid of an FDA-approved computer-aided dectection system. Electronically Signed By: Zaire Bales MD 03/17/20 [id number]
== END ==
LOC: M WHC 08:29
PROVIDERS: ATTEND Nurse Practitioner Family
DX: Z01.419 Encounter for gynecological examination (general) (routine) without abnormal findings (principal); Z12.31 Encounter for screening mammogram for malignant neoplasm of breast
CPT/HCPCS: 77063; 77067; G0101; G0123

== ENCOUNTER → 2020-03-17 | Outpatient (REF) | payer MEDICARE, MEDICAID | LOC: M SFHCWAGY 18:05 | PROVIDERS: ATTEND Nurse Practitioner Family | DX: Z12.4 Encounter for screening for malignant neoplasm of cervix (principal); R87.618 Other abnormal cytological findings on specimens from cervix uteri ==

== ENCOUNTER → 2020-03-30 | Outpatient (CLI) | payer MEDICARE, MEDICAID | LOC: M LABSMTC 09:15 | PROVIDERS: ATTEND Orthopaedic Surgery Hand Surgery | DX: Z03.818 Encounter for observation for suspected exposure to other biological agents ruled out (principal) ==

== ENCOUNTER → 2020-08-14 | Outpatient (CLI) | payer MEDICARE, MEDICAID ==
[2020-08-14 07:56] LABS: HEMATOCRIT 46.7 % (36.0-47.0); HEMOGLOBIN 15.2 g/dl (12.0-15.5); MEAN CORPUSCULAR HEMOGLOBIN 31.3 pg (27.0-33.0); MEAN CORPUSCULAR HGB CONC 32.5 g/dl (32.0-36.5); MEAN CORPUSCULAR VOLUME 96.3 fl (80.0-96.0); PLATELET COUNT, AUTOMATED 266 10^3/uL (150-450); RED BLOOD COUNT 4.85 10^6/uL (4.00-5.40); WHITE BLOOD COUNT 8.7 10^3/uL (4.0-10.0)
[2020-08-14 08:24] LABS: ALBUMIN 3.5 GM/DL (3.2-5.2); BILIRUBIN,TOTAL 0.3 MG/DL (0.2-1.0); CALCIUM LEVEL 8.5 MG/DL (8.5-10.1); CHOLESTEROL RISK RATIO 2.636 (<5); CREATININE FOR GFR 1.13 MG/DL (0.55-1.30); GLOMERULAR FILTRATION RATE 52.6 (>51); POTASSIUM SERUM 4.6 MEQ/L (3.5-5.1); THYROID STIMULATING HORMONE 1.99 uIU/ML (0.358-3.740); TOTAL PROTEIN 6.4 GM/DL (6.4-8.2)
[2020-08-14 08:26] LABS: MALB URINE SIEMENS 7.3 MG/L; MAU/CREAT RATIO 5.5 MCG/MG (0.0-30.0)
[2020-08-14 10:33] LABS: HEMOGLOBIN A1c 9.7 %
[2020-08-14 16:09] LABS: TOTAL 25(OH) VITAMIN D 31.4 NG/ML (30.0-100.0)
== END ==
LOC: M LAB 07:04
PROVIDERS: ATTEND Nurse Practitioner Adult Health
DX: R71.8 Other abnormality of red blood cells (principal); E10.8 Type 1 diabetes mellitus with unspecified complications; E78.5 Hyperlipidemia, unspecified; E55.9 Vitamin D deficiency, unspecified; L65.9 Nonscarring hair loss, unspecified

== ENCOUNTER → 2020-11-12 | Outpatient (CLI) | payer MEDICARE, MEDICAID ==
[2020-11-12 09:12] LABS: HEMATOCRIT 47.6 % (36.0-47.0); HEMOGLOBIN 15.7 g/dl (12.0-15.5); MEAN CORPUSCULAR VOLUME 96.9 fl (80.0-96.0); PLATELET COUNT, AUTOMATED 262 10^3/uL (150-450); RED BLOOD COUNT 4.91 10^6/uL (4.00-5.40); WHITE BLOOD COUNT 9.8 10^3/uL (4.0-10.0)
[2020-11-12 09:43] LABS: ALBUMIN 3.7 GM/DL (3.2-5.2); BILIRUBIN,TOTAL 0.3 MG/DL (0.2-1.0); CALCIUM LEVEL 8.7 MG/DL (8.5-10.1); CHOLESTEROL RISK RATIO 3.117 (<5); CREATININE FOR GFR 1.24 MG/DL (0.55-1.30); FREE T4 1.55 NG/DL (0.76-1.46); GLOMERULAR FILTRATION RATE 47.1 (>51); THYROID STIMULATING HORMONE 1.08 uIU/ML (0.358-3.740); TOTAL PROTEIN 6.4 GM/DL (6.4-8.2)
[2020-11-12 09:45] LABS: TOTAL 25(OH) VITAMIN D 13.2 NG/ML (30.0-100.0)
[2020-11-12 09:46] LABS: MALB URINE SIEMENS < 5.0 MG/L; MAU/CREAT RATIO 5.6 MCG/MG (0.0-30.0)
[2020-11-12 10:59] LABS: HEMOGLOBIN A1c 8.8 %
== END ==
LOC: M LAB 08:16
PROVIDERS: ATTEND Nurse Practitioner Adult Health
DX: R71.8 Other abnormality of red blood cells (principal); E10.8 Type 1 diabetes mellitus with unspecified complications; E89.0 Postprocedural hypothyroidism; E78.5 Hyperlipidemia, unspecified; E55.9 Vitamin D deficiency, unspecified; Z79.899 Other long term (current) drug therapy

== ENCOUNTER → 2020-12-03 | Outpatient (CLI) | payer MEDICARE, MEDICAID ==
--- NOTE | 2020-12-03 08:46 | REP ---
INDICATION: LT UPPER QUAD ABD PAIN. COMPARISON: None. TECHNIQUE: Left upper quadrant sonography. FINDINGS: Scanning through the left upper quadrant of the abdomen demonstrates a normal size homogeneous spleen with dimensions are 9.4 x 4.1 x 9.3 cm. No focal splenic lesion is seen. There is no evidence of ascites. Renal cortical echogenicity pattern is normal and renal contours are smooth. The left kidney measures 9.7 x 5.1 x 3.8 cm. No hydronephrosis, cyst, or mass is seen. IMPRESSION: Negative left upper quadrant sonogram. <Electronically signed by Zaire Bales > 12/03/20 0869
== END ==
LOC: M RAD 07:57
PROVIDERS: ATTEND Nurse Practitioner Adult Health
DX: R10.12 Left upper quadrant pain (principal)

== ENCOUNTER → 2021-01-30 | Outpatient (CLI) | payer MEDICARE, MEDICAID ==
[~2021-01-30] MED LIST changes: +GASTROGRAFIN SOLUTION 30ML (Q9963) As Ordered ONE; +ISOVUE-370 76% 100ML VIAL As Ordered ONE
--- NOTE | 2021-01-30 10:32 | REP ---
INDICATION: LUQ PAIN. COMPARISON: None TECHNIQUE: Axial pre and postcontrast contrast-enhanced images of the abdomen using 100 cc Isovue 370 intravenous contrast material with coronal and sagittal reformations. Delayed images of the abdomen obtained. This CT examination was performed using the following dose reduction techniques: Automated exposure control, adjustment of mA and/or kv according to the patient's size, and the use of iterative reconstruction technique. FINDINGS: Liver, spleen, pancreas, gallbladder, and bilateral adrenal glands are normal. The right kidney includes a large extrarenal pelvis without evidence for hydronephrosis. The left kidney demonstrates chronic cortical scarring. Distal esophagus demonstrates mild mucosal thickening suggesting the possibility of esophagitis. Stomach and visualized portions of the small and large bowel are normal. No ascites. No free air. No adenopathy. Abdominal aorta and vasculature appear normal. Musculoskeletal structures are intact. Lung bases are clear. IMPRESSION: 1. Nonacute renal findings as described above. 2. Mild esophageal thickening may represent chronic esophagitis/reflux disease. 3. Remainder of the abdomen appears normal. <Electronically signed by Edison Paulino > 01/30/21 0033
== END ==
LOC: M RAD 09:16
PROVIDERS: ATTEND Internal Medicine Nephrology
DX: R10.12 Left upper quadrant pain (principal)
CPT/HCPCS: 74170; Q9963; Q9967

== ENCOUNTER → 2021-03-09 | Outpatient (REF) | payer MEDICARE, MEDICAID ==
[~2021-03-09] MED LIST changes: -GASTROGRAFIN SOLUTION 30ML (Q9963) As Ordered ONE; -ISOVUE-370 76% 100ML VIAL As Ordered ONE
[2021-03-09 10:36] LABS: HEMATOCRIT 48.3 % (36.0-47.0); HEMOGLOBIN 15.8 g/dl (12.0-15.5); MEAN CORPUSCULAR HEMOGLOBIN 31.3 pg (27.0-33.0); MEAN CORPUSCULAR HGB CONC 32.7 g/dl (32.0-36.5); MEAN CORPUSCULAR VOLUME 95.6 fl (80.0-96.0); PLATELET COUNT, AUTOMATED 237 10^3/uL (150-450); RED BLOOD COUNT 5.05 10^6/uL (4.00-5.40); WHITE BLOOD COUNT 12.2 10^3/uL (4.0-10.0)
[2021-03-09 10:51] LABS: HEMOGLOBIN A1c 8.6 %
[2021-03-09 11:11] LABS: ALBUMIN 3.6 GM/DL (3.2-5.2); BILIRUBIN,TOTAL 0.3 MG/DL (0.2-1.0); CHOLESTEROL RISK RATIO 3.333 (<5); CREATININE FOR GFR 1.05 MG/DL (0.55-1.30); GLOMERULAR FILTRATION RATE 57.1 (>51); POTASSIUM SERUM 4.7 MEQ/L (3.5-5.1); TOTAL PROTEIN 6.5 GM/DL (6.4-8.2)
[2021-03-09 11:11] LABS: MALB URINE SIEMENS 6.5 MG/L
[2021-03-09 11:23] LABS: TOTAL 25(OH) VITAMIN D 53.6 NG/ML (30.0-100.0)
== END ==
LOC: M SFHCPLAZ 08:58
PROVIDERS: ATTEND Nurse Practitioner Adult Health
DX: R71.8 Other abnormality of red blood cells (principal); E10.8 Type 1 diabetes mellitus with unspecified complications; E78.5 Hyperlipidemia, unspecified; E55.9 Vitamin D deficiency, unspecified
CPT/HCPCS: 36415; 80053; 80061; 82043; 82306; 83036; 85027; G0463

== ENCOUNTER → 2021-03-18 | Outpatient (CLI) | payer MEDICARE, MEDICAID ==
--- NOTE | 2021-03-18 11:17 | REPMRS ---
Patient History The patient states she had a clinical breast exam in February 2021. No known family history of cancer. Tomosynthesis is performed. Volpara breast density is b . Tyrer-Cuzick lifetime risk of breast cancer 9.5%. No breast complaints today Patient signed the MRS sheet 1st covid vaccine 01/07/21-left arm-Pfizer 2nd covid vaccine 01/28/21-right arm Priors on PACS Patient Identification Verified Digital Woman Screen Mammo: March 18, 2021 - Exam #: [id number] Bilateral CC and MLO view(s) were taken. Technologist: Lori Recio, Technologist Prior study comparison: March 17, 2020, bilateral digital woman screen mammo performed at [facility]. March 14, 2019, bilateral digital woman screen mammo performed at [facility]. FINDINGS: The breast tissue is heterogeneously dense. This may lower the sensitivity of mammography. There has been no change in the appearance of the mammogram from the prior studies. There is a moderate amount of residual fibroglandular tissue which is fairly symmetric. There is no interval development of dominant mass, areas of architectural distortion, or clustered microcalcification typical of malignancy. Assessment: BI-RADS/ACR category 1 mammogram. Negative Mammogram. Recommendation Routine screening mammogram in 1 year (for women over age 40). This mammogram was interpreted with the aid of an FDA-approved computer-aided dectection system. Electronically Signed By: Guido Molina MD 03/18/21 1112
== END ==
LOC: M WHC 08:24
PROVIDERS: ATTEND Advanced Practice Midwife
DX: Z12.31 Encounter for screening mammogram for malignant neoplasm of breast (principal)
CPT/HCPCS: 77063; 77067; G0463

== ENCOUNTER → 2021-03-20 | Outpatient (CLI) | payer MEDICARE, MEDICAID ==
--- NOTE | 2021-03-20 08:55 | REP ---
INDICATION: SCREENING FOR LUNG CA. COMPARISON: 02/03/2017 TECHNIQUE: Axial noncontrast images from the thoracic inlet to the upper abdomen using low-dose lung screening technique (LDCT). As per the protocol only lung window images were sent to the read station for interpretation. FINDINGS: There is a stable 5 mm size nodule in the right lower lobe. There is a stable 4 mm size nodule in the right middle lobe. There is a stable 5 mm size nodule in left lower lobe. There is an additional stable 5 mm size nodule also seen in the left lower lobe. There are no new abnormal nodules, masses, or opacities. IMPRESSION: Stable lung rads category 2 CT examination the chest as described above. <Electronically signed by Mckay Dia > 03/20/21 2476
== END ==
LOC: M RAD 07:41
PROVIDERS: ATTEND Nurse Practitioner Adult Health
DX: Z12.2 Encounter for screening for malignant neoplasm of respiratory organs (principal)

== ENCOUNTER → 2021-06-11 | Outpatient (REF) | payer MEDICARE, MEDICAID ==
[~2021-06-11] MED LIST changes: -LISI2.5T2 PO; +LISI2.5T9 PO
== END ==
LOC: M LAB REF 13:47
PROVIDERS: ATTEND Internal Medicine Nephrology
DX: N18.31 Chronic kidney disease, stage 3a (principal)

== ENCOUNTER 2021-06-26 12:20 | Emergency (ER) | payer MEDICARE, MEDICAID ==
[~2021-06-26] VITALS: Ht 170.2 cm; Wt 77.2 kg
--- NOTE | 2021-06-26 17:17 | REP ---
INDICATION: Severe L hip pain, difficulty walking COMPARISON: None. TECHNIQUE: AP and frog-lateral views of the left hip FINDINGS: Generalized age-related changes include subtle increased sclerosis to the acetabulum with minimal joint space narrowing. No further overt osteoarthritic or significant degenerative changes are appreciated. No evidence for acute or healed injury. Surrounding soft tissues are normal. IMPRESSION: Mild generalized age-related changes. No evidence for acute fracture or dislocation. <Electronically signed by Edison Paulino > 06/26/21 [id number]
[2021-06-26 17:22] LABS: BASO # 0.1 10^3/uL (0.0-0.2); BASO % 0.8 % (0.0-1.0); EOS # 0.2 10^3/uL (0.0-0.5); EOS % 1.9 % (0.0-3.0); HEMATOCRIT 48.7 % (36.0-47.0); HEMOGLOBIN 16.4 g/dl (12.0-15.5); LYMPH # 3.7 10^3/uL (1.5-5.0); LYMPH % 33.7 % (24.0-44.0); MEAN CORPUSCULAR HGB CONC 33.7 g/dl (32.0-36.5); MEAN CORPUSCULAR VOLUME 94.9 fl (80.0-96.0); MONO # 0.7 10^3/uL (0.0-0.8); MONO % 6.4 % (2.0-8.0); NEUTROPHILS # 6.2 10^3/uL (1.5-8.5); NEUTROPHILS % 56.8 % (36.0-66.0); PLATELET COUNT, AUTOMATED 252 10^3/uL (150-450); RED BLOOD COUNT 5.13 10^6/uL (4.00-5.40); WHITE BLOOD COUNT 10.9 10^3/uL (4.0-10.0)
--- NOTE | 2021-06-26 17:44 | REPVR ---
PROCEDURE INFORMATION: Exam: CT Abdomen And Pelvis Without Contrast Exam date and time: 06/26/2021 5:10 PM Age: 60 years old Clinical indication: Abdominal pain; Localized; Right; Prior surgery; Additional info: R flank pain, HX of stones, lower back pain TECHNIQUE: Imaging protocol: Computed tomography of the abdomen and pelvis without contrast. Radiation optimization: All CT scans at this facility use at least one of these dose optimization techniques: automated exposure control; mA and/or kV adjustment per patient size (includes targeted exams where dose is matched to clinical indication); or iterative reconstruction. COMPARISON: CT ABD W/O FOLL BY WITH CONTRA 01/30/2021 10:03 AM FINDINGS: Lungs: Clear appearing lung bases. Heart: The heart is normal in size. The Liver: Normal appearing liver. Gallbladder and bile ducts: Normal gallbladder. The gallbladder is partially contracted. Normal common bile duct. Pancreas: Normal pancreas. Spleen: Normal spleen. Adrenal glands: Normal adrenal glands. Kidneys and ureters: There is moderate right hydronephrosis. There is massive distention of the right renal pelvis and part of this is thought to be secondary to an extrarenal pelvis or congenital ureteropelvic junction obstruction variant. The right ureter is normal in size. Calcification within the right pelvis is probably a phlebolith. The patient should have a CT scan with IV contrast with a delay imaging to determine if there is significant obstruction at the right ureteropelvic junction. There is prominence of the left renal pelvis but much smaller than the right. Stomach and bowel: Unremarkable. No obstruction. No mucosal thickening. Appendix: The cecum is in the right pelvis and the appendix is normal in size extending into the posterior right pelvis. Intraperitoneal space: There is no evidence of pneumoperitoneum. Vasculature: The aorta is normal in size with marginal calcification consistent with atherosclerotic changes. Lymph nodes: There is no evidence of lymphadenopathy. Urinary bladder: There is very little urine in the urinary bladder. Reproductive: Normal uterus. Bones/joints: Degenerative changes noted of the lower lumbar spine. Soft tissues: There is no evidence of soft tissue abnormality. IMPRESSION: There is moderate right hydronephrosis and massive distention of the right renal pelvis with a normal-sized right ureter. This may be an extrarenal pelvis or secondary to ureteropelvic junction obstruction variant. I would recommend a CT scan with IV contrast with delayed imaging to determine if there is significant obstruction at the right ureteropelvic junction. Enlargement of the right kidney may be secondary to changes of pyelonephritis or obstruction. Electronically signed by: Baltazar Navarro On 06/26/2021 17:44:19 PM
[2021-06-26 17:46] LABS: ALBUMIN 3.9 GM/DL (3.2-5.2); BILIRUBIN,DIRECT 0.1 MG/DL (0.0-0.2); BILIRUBIN,TOTAL 0.3 MG/DL (0.2-1.0); TOTAL PROTEIN 7.4 GM/DL (6.4-8.2)
[2021-06-26] MEDS ORDERED: ISOVUE-370 76% 100ML VIAL As Ordered ONE (18:15)
--- NOTE | 2021-06-26 19:44 | REPVR ---
PROCEDURE INFORMATION: Exam: CT Abdomen And Pelvis With Contrast Exam date and time: 06/26/2021 6:54 PM Age: 60 years old Clinical indication: Abnormal findings; Abnormal radiologic finding of the abdomen; Radiologic exam and body structure: Abd/pel CT scan; Additional info: RO significant obstruction, include bladder delay TECHNIQUE: Imaging protocol: Computed tomography of the abdomen and pelvis with contrast. Radiation optimization: All CT scans at this facility use at least one of these dose optimization techniques: automated exposure control; mA and/or kV adjustment per patient size (includes targeted exams where dose is matched to clinical indication); or iterative reconstruction. Contrast material: ISOVUE 370; Contrast volume: 100 ml; Contrast route: INTRAVENOUS (IV); COMPARISON: CT ABD PELVIS W/O CONTRAST 06/26/2021 5:00 PM FINDINGS: Lungs: The lung bases appear clear. Heart: Normal-sized heart. Liver: Normal appearing liver. Gallbladder and bile ducts: Normal gallbladder. Normal common bile duct. Pancreas: Normal pancreas. Spleen: Normal spleen. Adrenal glands: Normal adrenal glands. Kidneys and ureters: The left kidney demonstrates thinning and irregularity of the cortex. There is moderate right hydronephrosis. There is severe distension of the right renal pelvis and normal-sized right ureter. 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 After contrast the right collecting system and ureter opacify and there is no evidence of complete obstruction. This may produce a partial obstruction as there is severe distension of the right renal pelvis. There is dilatation of the left collecting system and mild enlargement of the left renal pelvis probably also congenital ureteropelvic junction obstruction variant. Stomach and bowel: Normal appearing small bowel. Appendix: Normal appearing appendix. Intraperitoneal space: No evidence of mesenteric mass. Vasculature: There is opacification of the aorta which appears normal in size. There is opacification of both the right and left kidney. There are 2 renal arteries on the left and both very small. Lymph nodes: Unremarkable. No enlarged lymph nodes. Urinary bladder: Unremarkable as visualized. Reproductive: Normal uterus. Bones/joints: There is no evidence of bony abnormality. Soft tissues: Normal appearing soft tissues. IMPRESSION: No evidence of opaque stone obstructing the right or left ureter. Moderate right hydronephrosis and very severe dilatation of the right renal pelvis with a normal-sized right ureter. The right ureter does opacify. With this massive distention of the right renal pelvis all consistent with ureteropelvic junction obstruction variant. This may produce a partial obstruction. Electronically signed by: Baltazar Navarro On 06/26/2021 19:44:39 PM
[2021-06-26 20:10] VITALS: BP 142/68
== END 2021-06-26 20:12 | disposition home or self-care (01) ==
LOC: M ED 12:20
DX: N13.30 Unspecified hydronephrosis (principal); N28.81 Hypertrophy of kidney; E11.9 Type 2 diabetes mellitus without complications; E05.00 Thyrotoxicosis with diffuse goiter without thyrotoxic crisis or storm; E78.5 Hyperlipidemia, unspecified; Z87.442 Personal history of urinary calculi; R42 Dizziness and giddiness; M79.7 Fibromyalgia; M18.30 Unilateral post-traumatic osteoarthritis of first carpometacarpal joint, unspecified hand; F17.200 Nicotine dependence, unspecified, uncomplicated; Z79.4 Long term (current) use of insulin; Z79.899 Other long term (current) drug therapy; Z88.8 Allergy status to other drugs, medicaments and biological substances
CPT/HCPCS: 36415; 73502; 74176; 74177; 80047; 80076; 81001; 85025; 99284; Q9967

== ENCOUNTER → 2021-06-30 | Outpatient (CLI) | payer MEDICARE, MEDICAID ==
--- NOTE | 2021-06-30 09:31 | REP ---
INDICATION: LT LEG PAIN SWELLING ? DVT COMPARISON: None. TECHNIQUE: Real time compression and duplex Doppler interrogation of the left lower extremity deep venous system is performed.Compression of the left peroneal and posterior tibial veins is performed. FINDINGS: The left common femoral, superficial femoral and popliteal veins are fully compressible with transducer pressure and demonstrate normal spontaneous and phasic flow, without evidence of deep venous thrombosis. The visualized left peroneal and posterior tibial veins demonstrate no thrombus. IMPRESSION: No evidence of deep venous thrombosis of the left lower extremity femoral popliteal venous system.No thrombus in the visualized left peroneal and posterior tibial veins. <Electronically signed by Guido Molina > 06/30/21 [id number]
== END ==
LOC: M RAD 08:49
PROVIDERS: ATTEND Nurse Practitioner Adult Health
DX: N13.39 Other hydronephrosis (principal); M79.652 Pain in left thigh

== ENCOUNTER → 2021-07-15 | Outpatient (CLI) | payer MEDICARE, MEDICAID ==
--- NOTE | 2021-07-15 08:53 | REP ---
INDICATION: LEFT KNEE PAIN COMPARISON: None. TECHNIQUE: Five views left knee. FINDINGS: There is no evidence of acute fracture, dislocation, or intrinsic bone disease.Mild lateral patellofemoral joint space narrowing with subchondral sclerosis. There is no radiographic evidence of a significant joint effusion. IMPRESSION: No fracture or dislocation. Mild degenerative changes lateral patellofemoral joint. <Electronically signed by Guido Molina > 07/15/21 [id number]
== END ==
LOC: M RAD 08:32
PROVIDERS: ATTEND Physician Assistant Medical
DX: M17.12 Unilateral primary osteoarthritis, left knee (principal)

== ENCOUNTER → 2021-08-20 | Outpatient (CLI) | payer MEDICARE, MEDICAID | LOC: M PLALAB 08:21 | PROVIDERS: ATTEND Nurse Practitioner Adult Health | DX: E03.9 Hypothyroidism, unspecified (principal); Z23 Encounter for immunization | CPT/HCPCS: 36415; 84443; 90682; G0008 ==

== ENCOUNTER → 2021-12-23 | Outpatient (CLI) | payer MEDICARE, MEDICAID ==
[2021-12-23 08:22] LABS: PLATELET COUNT, AUTOMATED 260 10^3/uL (150-450)
[2021-12-23 08:32] LABS: INR 0.85
[2021-12-23 08:45] LABS: COLLAGEN EPINEPHRINE 112 SECONDS (74-162)
== END ==
LOC: M LAB 07:19
PROVIDERS: ATTEND Physician Assistant
DX: M51.36 Other intervertebral disc degeneration, lumbar region (principal)

== ENCOUNTER → 2022-01-19 | Outpatient (CLI) | payer MEDICARE, MEDICAID ==
[2022-01-19 07:48] LABS: CREATININE, URINE 79.2 MG/DL; MALB URINE SIEMENS < 5.0 MG/L; MAU/CREAT RATIO 6.3 MCG/MG (0.0-30.0)
[2022-01-19 07:50] LABS: ALBUMIN 3.5 GM/DL (3.2-5.2); BILIRUBIN,TOTAL 0.3 MG/DL (0.2-1.0); CALCIUM LEVEL 8.5 MG/DL (8.8-10.2); CHOLESTEROL RISK RATIO 3.039 (<5); CREATININE FOR GFR 1.1 MG/DL (0.55-1.30); GLOMERULAR FILTRATION RATE 53.9 (>45); POTASSIUM SERUM 4.1 MEQ/L (3.5-5.1); THYROID STIMULATING HORMONE 1.97 uIU/ML (0.358-3.740); TOTAL PROTEIN 6.3 GM/DL (6.4-8.2)
== END ==
LOC: M LAB 06:41
PROVIDERS: ATTEND Nurse Practitioner Adult Health
DX: E10.8 Type 1 diabetes mellitus with unspecified complications (principal); E78.5 Hyperlipidemia, unspecified; E89.0 Postprocedural hypothyroidism; E55.9 Vitamin D deficiency, unspecified

== ENCOUNTER → 2022-03-22 | Outpatient (CLI) | payer MEDICARE, MEDICAID | LOC: M RAD 08:13 | PROVIDERS: ATTEND Nurse Practitioner Adult Health | DX: Z87.891 Personal history of nicotine dependence (principal) ==

== ENCOUNTER → 2022-08-25 | Outpatient (CLI) | payer MEDICARE, MEDICAID ==
[2022-08-25 10:36] LABS: HEMOGLOBIN A1c 9.9 %
[2022-08-25 10:51] LABS: CREATININE, URINE 64.3 MG/DL; MALB URINE SIEMENS < 5.0 MG/L; MAU/CREAT RATIO 7.7 MCG/MG (0.0-30.0)
[2022-08-25 10:56] LABS: ALBUMIN 3.5 GM/DL (3.2-5.2); BILIRUBIN,TOTAL 0.4 MG/DL (0.2-1.0); CALCIUM LEVEL 8.8 MG/DL (8.8-10.2); CHOLESTEROL RISK RATIO 2.736 (<5); CREATININE FOR GFR 1.08 MG/DL (0.55-1.30); GLOMERULAR FILTRATION RATE 55.1 (>45); POTASSIUM SERUM 4.6 MEQ/L (3.5-5.1); THYROID STIMULATING HORMONE 0.569 uIU/ML (0.358-3.740); TOTAL PROTEIN 6.4 GM/DL (6.4-8.2)
[2022-08-25 20:36] LABS: TOTAL 25(OH) VITAMIN D 31.2 NG/ML (30.0-100.0)
== END ==
LOC: M LAB 08:59
PROVIDERS: ATTEND Nurse Practitioner Adult Health
DX: E10.8 Type 1 diabetes mellitus with unspecified complications (principal); E78.5 Hyperlipidemia, unspecified; E89.0 Postprocedural hypothyroidism; E55.9 Vitamin D deficiency, unspecified; R71.8 Other abnormality of red blood cells; Z79.899 Other long term (current) drug therapy

== ENCOUNTER → 2022-11-09 | Outpatient (CLI) | payer MEDICARE, MEDICAID ==
[~2022-11-09] MED LIST changes: +LEVA45AE INH
== END ==
LOC: M LABSMTC 09:26
PROVIDERS: ATTEND Anesthesiology
DX: Z01.812 Encounter for preprocedural laboratory examination (principal); Z20.822 Contact with and (suspected) exposure to COVID-19

== ENCOUNTER 2022-11-12 06:37 | Day surgery (SDC) | payer MEDICARE, MEDICAID ==
[~2022-11-12] VITALS: Ht 167.6 cm; Wt 77.1 kg
[~2022-11-12 06:37] MED LIST changes: +NS 1,000 ML IV ONE
[2022-11-12] MEDS ORDERED: propofoL 200 MG/20 ML VIAL As Ordered ONE ×2 (07:23→08:12)
[2022-11-12] MEDS ORDERED: LIDOCAINE 2% 100MG/5ML SDV (FOR ANES.) As Ordered ONE (07:23)
[2022-11-12] MEDS ORDERED: GLYCOPYRROLATE INJ 0.2 MG/ML 2 ML VIAL As Ordered ONE (07:35)
[2022-11-12 08:41] VITALS: BP 132/62
== END 2022-11-12 08:52 | disposition home or self-care (01) ==
LOC: M OPP 06:37
PROVIDERS: ATTEND Internal Medicine Gastroenterology
DX: Z12.11 Encounter for screening for malignant neoplasm of colon (principal); Z86.010 Personal history of colon polyps; D12.0 Benign neoplasm of cecum; D12.2 Benign neoplasm of ascending colon; D12.5 Benign neoplasm of sigmoid colon; K64.8 Other hemorrhoids; K57.30 Diverticulosis of large intestine without perforation or abscess without bleeding; R10.13 Epigastric pain; Z88.6 Allergy status to analgesic agent; Z88.8 Allergy status to other drugs, medicaments and biological substances

== ENCOUNTER → 2023-04-21 | Outpatient (CLI) | payer MEDICARE, MEDICAID ==
[~2023-04-21] MED LIST changes: +NIFE-3 PO; -NIFE30TA50 PO; -NS 1,000 ML IV ONE
[2023-04-21 07:56] LABS: HEMATOCRIT 47.4 % (36.0-47.0); HEMOGLOBIN 16.1 g/dl (12.0-15.5); MEAN CORPUSCULAR HEMOGLOBIN 32.1 pg (27.0-33.0); MEAN CORPUSCULAR VOLUME 94.6 fl (80.0-96.0); PLATELET COUNT, AUTOMATED 260 10^3/uL (150-450); RED BLOOD COUNT 5.01 10^6/uL (4.00-5.40); WHITE BLOOD COUNT 11.4 10^3/uL (4.0-10.0)
[2023-04-21 08:21] LABS: CREATININE, URINE 67.5 MG/DL; MALB URINE SIEMENS < 3.0 MG/L; MAU/CREAT RATIO 4.4 MCG/MG (0.0-30.0)
[2023-04-21 08:46] LABS: ALBUMIN 3.6 G/DL (3.2-5.2); BILIRUBIN,TOTAL 0.3 MG/DL (0.3-1.2); CALCIUM LEVEL 9.5 MG/DL (8.3-10.6); CREATININE FOR GFR 1.12 MG/DL (0.55-1.30); GLOMERULAR FILTRATION RATE 52.7 (>45); POTASSIUM SERUM 4.6 MMOL/L (3.5-5.1); THYROID STIMULATING HORMONE 2.15 uIU/ML (0.55-4.78); TOTAL PROTEIN 6.3 G/DL (5.7-8.2)
[2023-04-21 09:50] LABS: HEMOGLOBIN A1c 8.3 % (4.0-6.0)
== END ==
LOC: M LAB 07:05
PROVIDERS: ATTEND Nurse Practitioner Adult Health
DX: E10.8 Type 1 diabetes mellitus with unspecified complications (principal)

== ENCOUNTER → 2023-08-31 | Outpatient (CLI) | payer MEDICARE, MEDICAID ==
[~2023-08-31] MED LIST changes: -ROPI1TAB3 PO; +ROPI1TAB73 PO
== END ==
LOC: M WHC 06:41
PROVIDERS: ATTEND Nurse Practitioner Adult Health
DX: Z12.31 Encounter for screening mammogram for malignant neoplasm of breast (principal)

== ENCOUNTER → 2023-09-07 | Outpatient (CLI) | payer MEDICARE, MEDICAID | LOC: M RAD 07:34 | PROVIDERS: ATTEND Nurse Practitioner Adult Health | DX: F17.210 Nicotine dependence, cigarettes, uncomplicated (principal) ==

== ENCOUNTER → 2024-02-17 | Outpatient (CLI) | payer MEDICARE, MEDICAID ==
[2024-02-17 07:53] LABS: HEMATOCRIT 45.2 % (36.0-47.0); HEMOGLOBIN 15.7 g/dl (12.0-15.5); MEAN CORPUSCULAR HEMOGLOBIN 32.8 pg (27.0-33.0); MEAN CORPUSCULAR HGB CONC 34.7 g/dl (32.0-36.5); MEAN CORPUSCULAR VOLUME 94.4 fl (80.0-96.0); PLATELET COUNT, AUTOMATED 239 10^3/uL (150-450); RED BLOOD COUNT 4.79 10^6/uL (4.00-5.40)
[2024-02-17 08:28] LABS: ALBUMIN 3.3 G/DL (3.2-5.2); BILIRUBIN,TOTAL 0.3 MG/DL (0.3-1.2); CALCIUM LEVEL 8.8 MG/DL (8.3-10.6); CHOLESTEROL RISK RATIO 2.75 (<5); CREATININE FOR GFR 1.06 MG/DL (0.55-1.30); FREE T4 1.12 NG/DL (0.89-1.76); GLOMERULAR FILTRATION RATE 55.9 (>45); HDL CHOLESTEROL 45.3 MG/DL (>40); LDL CHOLESTEROL 57.9 MG/DL (<100); NON-HDL-C 79.7 MG/DL; POTASSIUM SERUM 4.3 MMOL/L (3.5-5.1); THYROID STIMULATING HORMONE 2.766 uIU/ML (0.55-4.78); TOTAL 25(OH) VITAMIN D 27.4 NG/ML (20.0-100.0); TOTAL PROTEIN 5.9 G/DL (5.7-8.2)
[2024-02-17 08:39] LABS: HEMOGLOBIN A1c 9.3 % (4.0-6.0)
[2024-02-17 10:33] LABS: CREATININE, URINE 61.4 MG/DL; MALB URINE SIEMENS < 3.0 MG/L; MAU/CREAT RATIO 4.8 MCG/MG (0.0-30.0)
== END ==
LOC: M LAB 07:03
PROVIDERS: ATTEND Nurse Practitioner Adult Health
DX: E10.8 Type 1 diabetes mellitus with unspecified complications (principal)

== ENCOUNTER → 2024-04-02 | Outpatient (CLI) | payer MEDICARE, MEDICAID ==
[2024-04-02 07:22] LABS: PLATELET COUNT, AUTOMATED 254 10^3/uL (150-450)
[2024-04-02 07:35] LABS: INR 0.97; PARTIAL THROMBOPLASTIN TIME 33.4 SECONDS (24.8-34.2); PROTHROMBIN TIME 12.6 SECONDS (12.5-14.5)
[2024-04-02 07:52] LABS: COLLAGEN EPINEPHRINE 77 SECONDS (74-162)
== END ==
LOC: M LAB 06:54
PROVIDERS: ATTEND Physical Medicine & Rehabilitation
DX: Z01.818 Encounter for other preprocedural examination (principal); Z79.01 Long term (current) use of anticoagulants

== ENCOUNTER 2024-04-11 06:42 | Emergency (ER) | payer MEDICARE, MEDICAID ==
[~2024-04-11] VITALS: Ht 167.6 cm; Wt 80.5 kg
[2024-04-11] MEDS: FLUORESCEIN OPHTH 1MG STRIP OU ONE (07:38)
[2024-04-11] MEDS: PROPARACAINE 0.5% OPHTH SOL 15ML OU ONE (07:38)
[2024-04-11] MEDS ORDERED: ERYT5OIN25 OD (08:18)
[2024-04-11 08:39] VITALS: BP 144/64; TEMP 97.6; O2SAT 96
== END 2024-04-11 08:45 | disposition home or self-care (01) ==
LOC: M ED 06:42
DX: H01.001 Unspecified blepharitis right upper eyelid (principal); H53.8 Other visual disturbances; E11.9 Type 2 diabetes mellitus without complications; E78.5 Hyperlipidemia, unspecified; N18.30 Chronic kidney disease, stage 3 unspecified; F17.210 Nicotine dependence, cigarettes, uncomplicated; Z88.8 Allergy status to other drugs, medicaments and biological substances; Z79.1 Long term (current) use of non-steroidal anti-inflammatories (NSAID); Z79.51 Long term (current) use of inhaled steroids; Z79.2 Long term (current) use of antibiotics; Z79.4 Long term (current) use of insulin; Z79.899 Other long term (current) drug therapy

== ENCOUNTER → 2024-05-31 | Outpatient (CLI) | payer MEDICARE, MEDICAID ==
[~2024-05-31] MED LIST changes: +ERYT5OIN25 OD
[2024-05-31 08:22] LABS: CREATININE FOR GFR 1.07 MG/DL (0.55-1.30); GLOMERULAR FILTRATION RATE 55.3 (>45)
== END ==
LOC: M LAB 07:03
PROVIDERS: ATTEND Psychiatry & Neurology Neurology
DX: I10 Essential (primary) hypertension (principal)

== ENCOUNTER → 2024-08-20 | Outpatient (CLI) | payer MEDICARE, MEDICAID ==
[2024-08-20 08:00] LABS: HEMATOCRIT 47.3 % (36.0-47.0); HEMOGLOBIN 15.7 g/dl (12.0-15.5); MEAN CORPUSCULAR HEMOGLOBIN 31.8 pg (27.0-33.0); MEAN CORPUSCULAR HGB CONC 33.2 g/dl (32.0-36.5); MEAN CORPUSCULAR VOLUME 95.9 fl (80.0-96.0); PLATELET COUNT, AUTOMATED 280 10^3/uL (150-450); RED BLOOD COUNT 4.93 10^6/uL (4.00-5.40); WHITE BLOOD COUNT 9.4 10^3/uL (4.0-10.0)
[2024-08-20 08:31] LABS: ALBUMIN 3.6 G/DL (3.2-5.2); BILIRUBIN,TOTAL 0.3 MG/DL (0.3-1.2); CALCIUM LEVEL 9.6 MG/DL (8.3-10.6); CHOLESTEROL RISK RATIO 2.73 (<5); CREATININE FOR GFR 1.04 MG/DL (0.55-1.30); GLOMERULAR FILTRATION RATE 57.2 (>45); HDL CHOLESTEROL 53.1 MG/DL (>40); LDL CHOLESTEROL 68.9 MG/DL (<100); NON-HDL-C 91.9 MG/DL; POTASSIUM SERUM 4.4 MMOL/L (3.5-5.1); TOTAL PROTEIN 6.7 G/DL (5.7-8.2)
[2024-08-20 08:33] LABS: FREE T4 1.59 NG/DL (0.89-1.76); THYROID STIMULATING HORMONE 0.547 uIU/ML (0.55-4.78); TOTAL 25(OH) VITAMIN D 24.2 NG/ML (20.0-100.0)
[2024-08-20 09:08] LABS: HEMOGLOBIN A1c 8.2 % (4.0-6.0)
== END ==
LOC: M LAB 07:11
PROVIDERS: ATTEND Nurse Practitioner Adult Health
DX: E78.5 Hyperlipidemia, unspecified (principal); E55.9 Vitamin D deficiency, unspecified; R71.8 Other abnormality of red blood cells; E10.8 Type 1 diabetes mellitus with unspecified complications; E89.0 Postprocedural hypothyroidism

== ENCOUNTER → 2024-10-23 | Outpatient (CLI) | payer MEDICARE, MEDICAID | LOC: M RAD 09:33 | PROVIDERS: ATTEND Nurse Practitioner Adult Health | DX: Z12.2 Encounter for screening for malignant neoplasm of respiratory organs (principal); Z87.891 Personal history of nicotine dependence; I25.10 Atherosclerotic heart disease of native coronary artery without angina pectoris ==

== ENCOUNTER → 2024-11-12 | Outpatient (CLI) | payer MEDICARE, MEDICAID ==
[2024-11-12 08:03] LABS: HEMOGLOBIN A1c 8.2 % (4.0-6.0)
== END ==
LOC: M LAB 06:55
PROVIDERS: ATTEND Nurse Practitioner Family
DX: E10.65 Type 1 diabetes mellitus with hyperglycemia (principal)

== ENCOUNTER → 2025-02-25 | Outpatient (CLI) | payer MEDICARE, MEDICAID ==
[2025-02-25 09:12] LABS: BASO # 0.1 10^3/uL (0.0-0.2); BASO % 0.9 % (0.0-1.0); EOS # 0.2 10^3/uL (0.0-0.5); EOS % 1.6 % (0.0-3.0); HEMATOCRIT 45.6 % (36.0-47.0); HEMOGLOBIN 15.2 g/dl (12.0-15.5); LYMPH # 2.8 10^3/uL (1.5-5.0); LYMPH % 27.6 % (24.0-44.0); MEAN CORPUSCULAR HEMOGLOBIN 32.8 pg (27.0-33.0); MEAN CORPUSCULAR HGB CONC 33.3 g/dl (32.0-36.5); MEAN CORPUSCULAR VOLUME 98.3 fl (80.0-96.0); MONO # 0.9 10^3/uL (0.0-0.8); MONO % 8.5 % (2.0-8.0); NEUTROPHILS # 6.2 10^3/uL (1.5-8.5); NEUTROPHILS % 61.2 % (36.0-66.0); PLATELET COUNT, AUTOMATED 260 10^3/uL (150-450); RED BLOOD COUNT 4.64 10^6/uL (4.00-5.40); WHITE BLOOD COUNT 10.2 10^3/uL (4.0-10.0)
[2025-02-25 09:21] LABS: APPEARANCE, URINE CLEAR (CLEAR); BACTERIA, URINE AUTO NEGATIVE (NEGATIVE); BILIRUBIN, URINE AUTO NEGATIVE (NEGATIVE); BLOOD, URINE BLOOD NEGATIVE (NEGATIVE); COLOR, URINE YELLOW (YELLOW); GLUCOSE, URINE (UA) AUTO 2+ mg/dL (NEGATIVE); KETONE, URINE AUTO NEGATIVE (NEGATIVE); LEUKOCYTE ESTERASE, URINE AUTO NEGATIVE (NEGATIVE); NITRITE, URINE AUTO NEGATIVE (NEGATIVE); PROTEIN, URINE AUTO NEGATIVE (NEGATIVE); RBC, URINE AUTO 0 /HPF (0-3); SPECIFIC GRAVITY URINE AUTO 1.009 (1.002-1.035); SQUAMOUS EPITHELIAL CELL UR AU 1 /HPF (0-6); UROBILINOGEN, URINE AUTO 0.2 mg/dL (0.0-2.0); WBC, URINE AUTO 0 /HPF (0-3)
[2025-02-25 09:27] LABS: INR 0.86; PARTIAL THROMBOPLASTIN TIME 38.3 SECONDS (24.8-34.2); PROTHROMBIN TIME 12.1 SECONDS (12.5-14.5)
[2025-02-25 09:35] LABS: ALBUMIN 3.8 G/DL (3.2-5.2); BILIRUBIN,TOTAL 0.4 MG/DL (0.3-1.2); CALCIUM LEVEL 8.9 MG/DL (8.3-10.6); CREATININE FOR GFR 1.02 MG/DL (0.55-1.30); GLOMERULAR FILTRATION RATE 61.8 (>45); TOTAL PROTEIN 6.4 G/DL (5.7-8.2)
[2025-02-25 09:40] LABS: FERRITIN 187.3 NG/ML (7.3-270.7); FREE T4 1.25 NG/DL (0.89-1.76)
[2025-02-25 09:41] LABS: THYROID STIMULATING HORMONE 2.83 uIU/ML (0.55-4.78)
== END ==
LOC: M LAB 08:19
PROVIDERS: ATTEND Family Medicine
DX: Z01.818 Encounter for other preprocedural examination (principal); Z79.01 Long term (current) use of anticoagulants; E07.9 Disorder of thyroid, unspecified; D50.9 Iron deficiency anemia, unspecified

== ENCOUNTER → 2025-02-26 | Outpatient (CLI) | payer MEDICARE, MEDICAID | LOC: M CARPUL 09:47 | PROVIDERS: ATTEND Family Medicine | DX: R94.31 Abnormal electrocardiogram [ECG] [EKG] (principal) ==

== ENCOUNTER → 2025-05-17 | Outpatient (CLI) | payer MEDICARE, MEDICAID ==
[~2025-05-17] MED LIST changes: +AMMO12CR4 EX; -AMMO12CR7 EX
[2025-05-17 11:06] LABS: ESTIMATED AVERAGE GLUCOSE 189.0 MG/DL (60-110)
== END ==
LOC: M LAB 09:15
PROVIDERS: ATTEND Nurse Practitioner Family
DX: E10.65 Type 1 diabetes mellitus with hyperglycemia (principal)

== ENCOUNTER → 2025-08-02 | Outpatient (CLI) | payer MEDICARE, MEDICAID | LOC: M WHC 06:53 | PROVIDERS: ATTEND Nurse Practitioner Adult Health | DX: Z12.31 Encounter for screening mammogram for malignant neoplasm of breast (principal) ==

== ENCOUNTER → 2025-08-05 | Outpatient (CLI) | payer MEDICARE, MEDICAID ==
[2025-08-05 09:42] LABS: PLATELET COUNT, AUTOMATED 317 10^3/uL (150-450)
[2025-08-05 10:06] LABS: ALT/SGPT 16.0 U/L (7.0-40); AST/SGOT 22.0 U/L (<34); CALCIUM LEVEL 8.7 MG/DL (8.3-10.6); CARBON DIOXIDE LEVEL 28.0 MMOL/L (20-31); CHLORIDE LEVEL 104.0 MMOL/L (98-107); CHOLESTEROL LEVEL 191.0 MG/DL (<200); CHOLESTEROL RISK RATIO 3.61 (<5); CREATININE FOR GFR 0.93 MG/DL (0.55-1.30); GLOMERULAR FILTRATION RATE 69.1 (>45); LDL CHOLESTEROL 102.9 MG/DL (<100); NON-HDL-C 138.1 MG/DL; POTASSIUM SERUM 4.7 MMOL/L (3.5-5.1); SODIUM LEVEL 138.0 MMOL/L (136-145); TRIGLYCERIDES LEVEL 176.0 MG/DL (<150)
[2025-08-05 10:09] LABS: FREE T4 1.22 NG/DL (0.89-1.76)
[2025-08-05 10:37] LABS: ESTIMATED AVERAGE GLUCOSE 194.0 MG/DL (60-110)
== END ==
LOC: M LAB 07:11
PROVIDERS: ATTEND Nurse Practitioner Adult Health
DX: Z00.00 Encounter for general adult medical examination without abnormal findings (principal); R71.8 Other abnormality of red blood cells; E10.8 Type 1 diabetes mellitus with unspecified complications; E89.0 Postprocedural hypothyroidism; Z13.220 Encounter for screening for lipoid disorders; E78.5 Hyperlipidemia, unspecified

== ENCOUNTER 2025-08-15 12:16 | Emergency (ER) | payer MEDICARE, MEDICAID ==
[~2025-08-15] VITALS: Ht 167.6 cm; Wt 77.1 kg
[2025-08-15 12:19] VITALS: BP 149/67; TEMP 97.5; O2SAT 97
== END 2025-08-15 17:13 | disposition left against medical advice (07) ==
LOC: M ED 12:16
DX: Z53.21 Procedure and treatment not carried out due to patient leaving prior to being seen by health care provider (principal)

== ENCOUNTER → 2025-09-03 | Outpatient (CLI) | payer MEDICARE, MEDICAID | LOC: M RAD 08:46 | PROVIDERS: ATTEND Nurse Practitioner Adult Health | DX: Z00.00 Encounter for general adult medical examination without abnormal findings (principal); R10.12 Left upper quadrant pain; N13.30 Unspecified hydronephrosis; N13.4 Hydroureter ==

== ENCOUNTER → 2025-10-08 | Outpatient (CLI) | payer MEDICARE, MEDICAID | LOC: M RAD 10:17 | PROVIDERS: ATTEND Nurse Practitioner Adult Health | DX: Z00.00 Encounter for general adult medical examination without abnormal findings (principal); R09.89 Other specified symptoms and signs involving the circulatory and respiratory systems; R10.12 Left upper quadrant pain ==